=== PATIENT | female | born 1930 | race Caucasian/White ===

== ENCOUNTER 2016-10-12 02:22 | Inpatient (IN) | payer OTHER, MEDICARE ==
[2016-10-12] VITALS (12 sets, daily range): BP systolic 107–142; BP diastolic 64–77; PULSE 72–96; RESP 16–20; TEMP 96–97.7; O2SAT 82–98
[~2016-10-12] VITALS: Ht 165.1 cm; Wt 72.0 kg
[~2016-10-12 02:22] MED LIST: ASPI-110 PO; BENA25CA2 PO; CARV3.12 PO; CHOL1TAB29; FAMO20TA2 PO; IRON27TA PO; LEVO25TA4 PO; OMEP20TA PO; PRAM0.12 PO; PRED20 PO; SIMV40TA PO
[2016-10-12] MEDS: RESP: ALBUTEROL 2.5 MG/IPRATROPIUM 0.5 MG NEB (SCH) INH (02:39)
[2016-10-12] MEDS ORDERED: SODIUM CHLORIDE 0.9% FLUSH 10 ML FLUSH IVF PRN (02:45)
[2016-10-12 02:47] LABS: AUTOMATED NEUTROPHIL # 11.1 TH/MM3 (1.8-7.7); BASOPHIL # 0.1 TH/MM3 (0-0.2); BASOPHIL % 0.9 % (0.0-2.0); EOSINOPHIL # 0.2 TH/MM3 (0-0.4); EOSINOPHIL % 1.6 % (0.0-4.0); HEMATOCRIT 36.3 % (35.0-46.0); HEMO FLAGS DIFF FINAL; LYMPH % 13.2 % (9.0-44.0); LYMPHOCYTE # 1.9 TH/MM3 (1.0-4.8); MEAN CORPUSCULAR HGB CONC 32.2 % (32.0-36.0); MONO % 6.1 % (0.0-8.0); NEUT % 78.2 % (16.0-70.0); PLATELET COUNT 263 TH/MM3 (150-450); RED BLOOD COUNT 4.18 MIL/MM3 (4.00-5.30); RED CELL DISTRIBUTION WIDTH 16.8 % (11.6-17.2); WHITE BLOOD COUNT 14.2 TH/MM3 (4.0-11.0)
--- NOTE | 2016-10-12 02:52 | PD ---
HPI Chief Complaint: Respiratory Distress Time Seen by Provider: 02:34 Travel History International Travel<30 days: No Contact w/Intl Traveler<30days: No Traveled to known affect area: No History of Present Illness HPI And 86 year-old woman with a history of systolic CHF as well as COPD and chronic kidney disease who presents to the emergency department when her shortness of breath. She follows with Dr. Bautista, Dr. Guzmán. She states that she saw Dr. Bautista today and had been doing really well. About 11:00 she started getting abrupt worsening in her trouble breathing. She called EMS. On EMS arrival she was 82% on room air, the report that she was then A. fib RVR with a heart rate in the 130s, breathing about 30 times a minute, looks pale and diaphoretic. She was given breathing treatments, 125 is on Medrol, and 20 mg of diltiazem. She had some vomiting. She felt overall improved. Patient states she had been feeling generally well before the onset he symptoms. No history of A. fib in the past. History Past Medical History Narrative Medical Systolic CHF Chronic kidney disease stage IV COPD Arthritis Hyponatremia Hypertension History of right sided breast cancer, as well as cervical cancer Social History Alcohol Use: No Tobacco Use: No (QUIT 7 yrs ago) Allergies-Medications (Allergen,Severity, Reaction): Coded Allergies: Lasix (Verified Allergy, Severe, angioedema, 01/29/16) Morphine (Verified Adverse Reaction, Intermediate, Nausea/Vomiting, ) Reported Meds & Prescriptions Reported Meds & Active Scripts Active Prednisone 20 Mg Tab 20 Mg PO DAILY Famotidine 20 Mg Tab 10 Mg PO BID Reported Simvastatin 40 Mg Tab 40 Mg PO HS Levothyroxine (Levothyroxine Sodium) 25 Mcg Tab 25 Mcg PO DAILY Carvedilol 3.125 Mg Tab 3.125 Mg PO BID Omeprazole 20 Mg Tab 20 Mg PO DAILY Pramipexole (Pramipexole Dihydrochloride) 0.125 Mg Tab 0.125 Mg PO HS Aspirin 81 (Aspirin) 81 Mg Tabdr 81 Mg PO DAILY Iron (Ferrous Gluconate) 27 Mg Tab PO DAILY Review of Systems Except as stated in HPI: all other systems reviewed are Neg Physical Exam Narrative GENERAL: 86 year-old woman, still little bit labored speaking in short sentences , little bit pale. SKIN: Pale and clammy. HEAD: Atraumatic. Normocephalic. EYES: Pupils equal and round. No scleral icterus. No injection or drainage. ENT: No nasal bleeding or discharge. Mucous membranes pink and moist. NECK: Trachea midline. No JVD. CARDIOVASCULAR: Heart rate a little bit rapid, regular most the time but still with bouts of irregularity. RESPIRATORY: No accessory muscle use. Clear to auscultation. Breath sounds equal bilaterally. GASTROINTESTINAL: Abdomen soft, non-tender, nondistended. Hepatic and splenic margins not palpable. MUSCULOSKELETAL: No obvious deformities. No clubbing. No cyanosis. No edema. NEUROLOGICAL: Awake and alert. No obvious cranial nerve deficits. Motor grossly within normal limits. Normal speech. PSYCHIATRIC: Appropriate mood and affect; insight and judgment normal. Data Data Last Documented VS Vital Signs Date Time Temp Pulse Resp B/P Pulse Ox O2 Delivery O2 Flow Rate FiO2 10/12/16 02:33 97.7 72 18 142/68 91 Orders Complete Blood Count With Diff (10/12/16 02:34) Comprehensive Metabolic Panel (10/12/16 02:34) B-Type Natriuretic Peptide (10/12/16 02:34) Act Partial Throm Time (Ptt) (10/12/16 02:34) Prothrombin Time / Inr (Pt) (10/12/16 02:34) Magnesium (Mg) (10/12/16 02:34) Troponin I (10/12/16 02:34) Urinalysis - C+S If Indicated (10/12/16 02:34) Iv Access Insert/Monitor (10/12/16 02:34) Electrocardiogram (10/12/16 02:34) Ecg Monitoring (10/12/16 02:34) Oximetry (10/12/16 02:34) Oxygen Administration (10/12/16 02:34) Chest, Single Ap (10/12/16 02:34) Sodium Chloride 0.9% Flush (Ns Flush) (10/12/16 02:45) Albuterol-Ipratropium Neb (Duoneb Neb) (10/12/16 02:45) MDM Medical Decision Making Medical Screen Exam Complete: Yes Emergency Medical Condition: Yes Interpretation(s) My review of EKG: Normal sinus rhythm at a rate of 65, left bundle branch block , no definite ischemia. Compared to previous EKG from January 2016 is no significant change. Differential Diagnosis COPD exacerbation, CHF exacerbation, PE, pneumonia, ACS, other Narrative Course Medical decision making Is 86 year-old woman presents emergent from her shortness of breath. She had an episode of A. fib RVR. I reviewed these tracings. The only a 12-lead tracings the rhythm strip. There is some irregularity but it could be sinus rhythm with ectopy is difficult to tell. She was treated with diltiazem and then had some vomiting. She then apparently drop her blood pressure. She is in sinus rhythm now with still a fair amount of ectopy. She is a little bit improved but still fairly hypoxic. She has wheezing and coarse breath sounds at posterior lung dumont. She states she's not obligated diuretics because of her chronic kidney disease. We'll check labs, x-ray, consider PE although I think this is unlikely. Patient will likely need to be admitted to the hospital. Kumar Clarke MD Oct 12, 2016 02:52
[2016-10-12 03:06] LABS: APTT (PATIENT) 25.9 SEC (24.3-30.1)
[2016-10-12 03:17] LABS: ALT (GPT) 22 U/L (10-53); ANION GAP 12 MEQ/L (5-15); AST (GOT) 25 U/L (15-37); BICARBONATE 19.9 MEQ/L (21.0-32.0); BLOOD UREA NITROGEN 33 MG/DL (7-18); CHLORIDE 109 MEQ/L (98-107); GLOMERULAR FILTRATION RATE 25 ML/MIN (>89); MAGNESIUM 1.9 MG/DL (1.5-2.5); SODIUM (NA) 141 MEQ/L (136-145)
[2016-10-12 03:22] LABS: ALKALINE PHOSPHATASE 87 U/L (45-117); TOTAL BILIRUBIN ADULT 0.5 MG/DL (0.2-1.0)
[2016-10-12] MEDS ORDERED: NITROGLYCERIN 2% OINT 1 GM PACKET TOPICAL ONE (03:45)
[2016-10-12] MEDS ORDERED: BUMETANIDE INJ 1 MG/4 ML VIAL IV PUSH ONE (03:45)
--- NOTE | 2016-10-12 03:47 | RADRPT ---
EXAM DATE/TIME: 10/12/2016 02:44 [facility] COMPARISON: CHEST SINGLE AP, January 14, 2016, 5:01. INDICATIONS : Short of breath. MEDICAL HISTORY : Hypertension. Hypercholesterolemia. Congestive heart failure. COPD. Cervical cancer. Breast cance r. Renal disease. SURGICAL HISTORY : Right lumpectomy. ENCOUNTER: Initial ACUITY: 1 day PAIN SCORE: 0/10 LOCATION: Bilateral chest FINDINGS: There are patchy parenchymal infiltrates in both lung bases. The heart size is enlarged. No definite pleural effusions. The upper lung dumont are grossly clear. The bony structures are grossly intact. CONCLUSION: 1. Patchy bibasilar parenchymal infiltrates suggestive of pneumonia. 2. Cardiomegaly. Clifford Allison MD on October 12, 2016 at 3:45 Board Certified Radiologist. This report was verified electronically.
[2016-10-12] MEDS ORDERED: RESP: IPRATROPIUM 0.5 MG/2.5 ML NEB NEB PRN (04:30)
[2016-10-12] MEDS ORDERED: NALOXONE HCL 0.4 MG/ML AMP IV PRN (04:30)
[2016-10-12] MEDS ORDERED: SODIUM CHLORIDE 0.9% FLUSH 10 ML FLUSH IV FLUSH PRN (04:30)
--- NOTE | 2016-10-12 04:54 | HHI.HP ---
HPI Service [facility] Primary Care Physician Serena Johnson MD Admission Diagnosis CHF exacerbation, shortness of breath, possible A. fib Diagnoses: Travel History International Travel<30 Days: No Contact w/Intl Traveler <30 Da: No Traveled to Known Affected Are: No History of Present Illness History from patient, ER physician communication, and review of medical records. Patient reported that she was at her normal self and even had an appointment with her powertrain control systems engineer at Dr. Bautista yesterday afternoon. She stated she was fine and was not short of breath at that time. Reports her lung exam at that time was normal. However by 11 PM last night, she stated she was starting to get short of breath. She stated she tried to take breathing exercises, and that her breathing was not improving. By around 1 AM, she stated it was so severe that she had to call 911. Per ER report, patient's O2 sat was in the 80s on room air upon EMS arrival. Patient was given nebulizer treatments, and was placed on oxygen. She was also found to be in A. fib with RVR per EMS judgment and therefore was given 20 mg of diltiazem. She was also given steroids. In the emergency room, patient was saturating in the low 90s on 6 L nasal cannular. Patient denies being on oxygen at home. She does report her shortness of breath which started all of a sudden yesterday. But denies any progressive shortness of breath over the past few days. Denies pillow orthopnea. However stated she sleeps on a chair which is almost like a recliner. Patient denies any peripheral edema. She reports that she does have a machine to check her pulse ox at home and it is usually 95% on room air. Patient denies cough/sputum production/fever/night sweats at home. She denies any chest pain although she states she has heaviness in her chest whenever she takes a deep breath. She denies any prolonged recent travels. She is not on blood thinners at home. She states that she is quite ambulatory, still goes to grocery shopping by herself, and is still driving. Patient does report of history of CHF. However she states that she has been in hospital only 4 times and 2 of the times were possibly for CHF exacerbation. She stated she was on diuretics while at hospital but never was discharged on diuretics at home. She has never been on it. She is quite reluctant to use diuretics because she does have stage IV chronic kidney disease and she was told by her taper operator to be careful of them. Review of Systems Except as stated in HPI: all other systems reviewed are Neg Past Family Social History Past Medical History htn copd ckd iv chf hypothryoidism at age 43yo- cervical cancer - stage iii- s/p hysterectomy, left one ovary 2001- breast cancer, right, lumpectomy, s/p radiation Past Surgical History hysterectomy lumpectomy on right Allergies: Coded Allergies: Lasix (Verified Allergy, Severe, angioedema, 01/29/16) Morphine (Verified Adverse Reaction, Intermediate, Nausea/Vomiting, ) Family History mother- at 80yo from ID one brother- in war at 18yo another brother 72yo- lung cancer sister- one from another sister- at 69yo, limb ischemia Social History used to smoke about 1 pack a day, started 29yo - quit 80yo no drinking, no drugs lives with daughter, still drives Physical Exam Vital Signs Vital Signs Date Time Temp Pulse Resp B/P Pulse Ox O2 Delivery O2 Flow Rate FiO2 10/12/16 04:23 93 Venturi Mask 50 10/12/16 04:15 88 Nasal Cannula 5.00 10/12/16 02:38 20 82 Room Air 10/12/16 02:37 91 Nasal Cannula 6 10/12/16 02:33 97.7 72 18 142/68 91 Physical Exam GENERAL: This is a well-nourished, well-developed patient, in no apparent distress. SKIN: No rashes, ecchymoses or lesions. Cool and dry. HEAD: Atraumatic. Normocephalic. No temporal or scalp tenderness. EYES: No scleral icterus. No injection or drainage. ENT: Nose without bleeding, purulent drainage or septal hematoma. Airway patent. NECK: Trachea midline. No JVD CARDIOVASCULAR: Regular rate and rhythm without murmurs, gallops, or rubs. RESPIRATORY: Bilateral basilar crepitations. GASTROINTESTINAL: Abdomen soft, non-tender, nondistended.. No guarding. MUSCULOSKELETAL: Extremities without clubbing, cyanosis, or edema. No calf tenderness. Neurology: Awake, alert, oriented. No focal deficits. Laboratory Laboratory Tests Test 10/12/16 02:35 White Blood Count 14.2 Red Blood Count 4.18 Hemoglobin 11.7 Hematocrit 36.3 Mean Corpuscular Volume 87.0 Mean Corpuscular Hemoglobin 28.0 Mean Corpuscular Hemoglobin 32.2 Concent Red Cell Distribution Width 16.8 Platelet Count 263 Mean Platelet Volume 8.6 Neutrophils (%) (Auto) 78.2 Lymphocytes (%) (Auto) 13.2 Monocytes (%) (Auto) 6.1 Eosinophils (%) (Auto) 1.6 Basophils (%) (Auto) 0.9 Neutrophils # (Auto) 11.1 Lymphocytes # (Auto) 1.9 Monocytes # (Auto) 0.9 Eosinophils # (Auto) 0.2 Basophils # (Auto) 0.1 CBC Comment DIFF FINAL Differential Comment Prothrombin Time 11.0 Prothromb Time International 1.0 Ratio Activated Partial 25.9 Thromboplast Time D-Dimer Quantitative (PE/DVT) 0.49 Sodium Level 141 Potassium Level 4.0 Chloride Level 109 Carbon Dioxide Level 19.9 Anion Gap 12 Blood Urea Nitrogen 33 Creatinine 1.87 Estimat Glomerular Filtration 25 Rate Random Glucose 209 Calcium Level 8.5 Magnesium Level 1.9 Total Bilirubin 0.5 Aspartate Amino Transf 25 (AST/SGOT) Alanine Aminotransferase 22 (ALT/SGPT) Alkaline Phosphatase 87 Troponin I 0.05 B-Type Natriuretic Peptide 850 Total Protein 6.6 Albumin 3.4 Result Diagram: 10/12/1623410/12/16234 Imaging Last 48 hours Impressions Chest X-Ray 10/12/16233 Signed Impressions: Service Date/Time: Wednesday, October 12, 2016 02:44 - CONCLUSION: 1. Patchy bibasilar parenchymal infiltrates suggestive of pneumonia. 2. Cardiomegaly. Clifford Allison MD Assessment and Plan Assessment and Plan Impression: Acute hypoxemic respiratory failurerequiring high flow oxygen. D-dimer is negative. Pneumonia versus pulmonary edema Possible A. fibper EMS report. However on review of telemetry strips from EMS , I was able to appreciate P waves. Patient does have LBBB which is old. htn copd ckd iv chf hypothryoidism at age 43yo- cervical cancer - stage iii- s/p hysterectomy, left one ovary 2001- breast cancer, right, lumpectomy, s/p radiation Plan: Atrovent nebulizers scheduled and when necessary. Patient was given Bumex 1 mg IV in ER. At present, patient is still requiring about 5-6 L of oxygen by Ventimask. She is however setting better and he were between 90-93%. We'll continue oxygen supplementation. Again, patient is not on diuretics at home. Not on home oxygen at home. Not even taking nebulizers at home. There for this is somewhat unusual as she is quite hypoxic and presentation is quite certain. D-dimer is negative which thus is unlikely to be PE given that she also does have abnormal chest x-ray. We'll therefore obtain CT of the chest without IV contrast to better differentiate between pneumonia versus pulmonary edema. This distinction may help patient in convincing her that she might need diuretics. Would also consult patient's taper operator to weigh in on use of diuretics. Consults patient's powertrain control systems engineer at Dr. Bautista for likely CHF exacerbation. At present, I would hold off on antibiotics since my clinical impression is that this is more of CHF exacerbation. Patient currently is not septic. DVT prophylaxiswith heparin. GI prophylaxis on pantoprazole. Discussed Condition With Patient, ER physician, nursing staff Physician Certification 2 Midnight Certification Type: Admission for Inpatient Services Order for Inpatient Services The services are ordered in accordance with Medicare regulations or non- Medicare payer requirements, as applicable. In the case of services not specified as inpatient-only, they are appropriately provided as inpatient services in accordance with the 2-midnight benchmark. Estimated LOS (days): 2 days is the estimated time the patient will need to remain in the hospital, assuming treatment plan goals are met and no additional complications. Post-Hospital Plan: Home Sixto Byrd MD Oct 12, 2016 04:54
--- NOTE | 2016-10-12 07:01 | RADRPT ---
EXAM DATE/TIME: 10/12/2016 06:47 [facility] COMPARISON: CHEST SINGLE AP, October 12, 2016, 2:44. INDICATIONS : Shortness of breath. Pneumonia vs. pulmonary edema. RADIATION DOSE: 3.66 CTDIvol (mGy) MEDICAL HISTORY : Cardiovascular disease. Congestive heart failure. Chronic obstructive pulmonary disease. Diverticulit is. Right breast cancer. Cervical cancer. SURGICAL HISTORY : Mastectomy, right. Hysterectomy. ENCOUNTER: Initial ACUITY: 1 day PAIN SCALE: 0/10 LOCATION: chest TECHNIQUE: Volumetric scanning of the chest was performed. Using automated exposure control and adjustment of t he mA and/or kV according to patient size, radiation dose was kept as low as reasonably achievable to obtain optimal diagnostic quality images. DICOM format image data is available electronically for r eview and comparison. Follow-up recommendations for incidentally detected pulmonary nodules are based at a minimum on nodul e size and patient risk factors according to Fleischner Society Guidelines. FINDINGS: LUNGS: There is central lobar emphysema bilaterally. There is increased interstitial markings bilaterally. T here is infiltrates in both lung bases suggestive of atelectasis with small effusions. Findings sugge st most likely pulmonary edema with bibasilar infiltrates. PLEURAE: Small bilateral pleural effusions. MEDIASTINUM: The heart and great vessels demonstrate no acute abnormality. There is no mediastinal or hilar lymph adenopathy. A few nonspecific lymph nodes are seen. There are coronary calcifications. There is ather osclerotic changes of the aorta. There is diffuse cardiomegaly. AXILLAE: Within normal limits. No lymphadenopathy. Surgical clips in the right axillary area. MUSCULOSKELETAL: Within normal limits for patient age. Degenerative changes. MISCELLANEOUS: The visualized upper abdominal organs demonstrate no acute abnormality. CONCLUSION: 1. Central lobar emphysema 2. Increased interstitial markings bilaterally suggestive of pulmonary edema with bibasilar infiltrat es and small effusions. Clifford Allison MD on October 12, 2016 at 6:56 Board Certified Radiologist. This report was verified electronically.
--- NOTE | 2016-10-12 09:05 | MB ---
cc: BROWN BAUTISTA MD DATE OF CONSULTATION 10/12/2016 REASON FOR CONSULTATION CHF HISTORY OF PRESENT ILLNESS Ms. Treviño is a pleasant 86-year-old patient of mine. She does have a history of an ischemic cardiomyopathy with a known EF of 30-35%, moderate aortic regurgitation, Stage IV kidney disease and left bundle branch block. The patient reports that she had a rather sudden onset of shortness of breath with associated chills. She has not had any fever nor coughing anything up. She reports that the progressive shortness of breath was rather abrupt and precipitated her emergency room visit. She denies any recent weight gain and is emphatic that she weighs herself every day. She as well has not had any edema. PAST MEDICAL HISTORY Significant for - 1. Ischemic cardiomyopathy with an EF of 30-35%. 2. She has had a non-ST elevation MT that was medically managed. 3. Moderate aortic regurgitation. 4. Moderate carotid artery stenosis. 5. Chronic kidney disease. 6. COPD. 7. Pneumonia. 8. CHF. 9. Hypertension. 10. Hyperlipidemia. 11. Hypothyroidism. 12. Left bundle branch block. 13. Pericardial effusion. SOCIAL HISTORY The patient is a former smoker. ALLERGIES MORPHINE LASIX which causes angioedema. FAMILY HISTORY Noncontributory. REVIEW OF SYSTEMS Except as mentioned in the HPI, all 12 systems are negative. OUTPATIENT MEDICATIONS 1. Aspirin. 2. Omeprazole. 3. Carvedilol. 4. Levothyroxine. 5. Simvastatin. PHYSICAL EXAMINATION VITAL SIGNS: On physical examination vital signs are 96.0, 77, 18, 120/74. IN GENERAL: She is a well-appearing female who is in no apparent distress. NECK: Free from JVD. LUNGS: Clear to auscultation. CARDIOVASCULAR EXAMINATION: She has a normal S1 and S2. She has 2/6 systolic and diastolic murmurs. No rubs or gallops are appreciated. ABDOMEN: Soft. EXTREMITIES: Free from edema. LABORATORY FINDINGS White count of 14.2, creatinine is 1.87 with a troponin of 0.05. The BNP is 850. CHEST X-RAY Shows patchy right basilar infiltrate suggestive of pneumonia. IMPRESSION 1. Shortness of breath - The patient has had a rather abrupt onset of shortness of breath with oxygen saturations in the 80s. Her white count is elevated and chest x-ray is most consistent with pneumonia. The patient's CT has been done and is currently pending. This would be an unusual presentation for heart failure as she has not had any weight gain nor edema and has been quite elevated white count and significant hypoxia. This presentation is very similar to her last presentation for pneumonia. 2. CHF - The patient certainly does have a history of an ischemic cardiomyopathy with an EF of 30-35%. Low-dose Bumex is certainly reasonable given her history. I do not feel, however, that this was the precipitant of her hypoxia. HUGO inhibitors are felt relatively contraindicated with the creatinine of 1.9. I would continue her carvedilol. 3. CKD - The patient does have moderate renal insufficiency which does appear to be at baseline at this point. Sincerely, Brown Bautista M.D. DORITA/ENRIQUE /7:39 AM /8:55 AM
[2016-10-12] MEDS: CARVEDILOL 3.125 MG TAB PO SCH ×2 (09:39→21:04)
[2016-10-12] MEDS: BUMETANIDE 1 MG TAB PO SCH (09:40)
[2016-10-12] MEDS: SODIUM CHLORIDE 0.9% FLUSH 10 ML FLUSH IV FLUSH SCH ×2 (09:41→21:05)
[2016-10-12] MEDS: DOXYCYCLINE INJ 100 MG in SODIUM CHLORIDE 0.9% INJ 100 ML IV SCH ×2 (09:41→21:07)
--- NOTE | 2016-10-12 13:23 | ECHRPT ---
Indication: heart failure CONCLUSIONS Normal left ventricular size. The left ventricular systolic function is [id number] reduced with an estimated ejection fra ction in the range of 30-35%. The left atrial size is upper limits of normal. Mild mitral valve regurgitation. Mild aortic valve regurgitation. There is mild tricuspid valve regurgitation. There is estimated mild pulmonary hypertension present (range 40-50 mmHg). The pulmonary valve is not well visualized. BP: 120 / 74 HR: 77 Rhythm: MEASUREMENTS (Male / Female) Normal Values Technical Quality:Good 2D ECHO LV Diastolic Diameter PLAX 4.0 cm 4.2 - 5.9 / 3.9 - 5.3 cm LV Systolic Diameter PLAX 3.4 cm IVS Diastolic Thickness 2.4 cm 0.6 - 1.0 / 0.6 - 0.9 cm LVPW Diastolic Thickness 1.3 cm 0.6 - 1.0 / 0.6 - 0.9 cm LV Relative Wall Thickness 0.9 RV Internal Dim ED PLAX 2.3 cm M-MODE Aortic Root Diameter MM 3.3 cm LA Systolic Diameter MM 3.7 cm LA Ao Ratio MM 1.1 AV Cusp Separation MM 1.7 cm DOPPLER AI Peak Velocity 394.0 cm/s AI Peak Gradient 62.1 mmHg AI Pressure Half Time 529.0 ms MV Area PHT 2.1 cm Mitral E Point Velocity 142.0 cm/s Mitral A Point Velocity 159.0 cm/s Mitral E to A Ratio 0.9 LV E' Lateral Velocity 5.7 cm/s Mitral E to LV E' Lateral Ratio 25.1 LV E' Septal Velocity 5.9 cm/s Mitral E to LV E' Septal Ratio 24.3 TR Peak Velocity 312.0 cm/s TR Peak Gradient 38.9 mmHg FINDINGS LEFT VENTRICLE Normal left ventricular size. The left ventricular systolic function is [id number] reduced with an estimated ejection fra ction in the range of 30-35%. RIGHT VENTRICLE Normal right ventricular size and systolic function. LEFT ATRIUM The left atrial size is upper limits of normal. RIGHT ATRIUM The right atrial size is normal. ATRIAL SEPTUM Normal atrial septal thickness without atrial level shunting by limited color doppler interrogation. AORTA The aortic root and proximal ascending aorta are normal in size on limited imaging. MITRAL VALVE Mild mitral valve regurgitation. + MAC AORTIC VALVE Trileaflet aortic valve. Mild aortic valve regurgitation. TRICUSPID VALVE Structurally normal tricuspid valve. There is mild tricuspid valve regurgitation. There is estimated mild pulmonary hypertension present (range 40-50 mmHg). PULMONARY VALVE The pulmonary valve is not well visualized. VESSELS The inferior vena cava is normal in size. PERICARDIUM No pericardial effusion. Cecelia Bautista MD, FACC (Electronically Signed) Final Date:12 October 2016 13:22
--- NOTE | 2016-10-12 13:53 | EKG ---
Date Performed: 10/12/2016 Time Performed: 10:18:31 PTAGE: 86 years EKG: ATRIAL FIBRILLATION MARKED LEFT AXIS DEVIATION LEFT BUNDLE BRANCH BLOCK ABNORMAL ECG PREVIOUS TRACING : 10/12/2016 02.28 Compared to the previous tracing, atrial fibrillation has r eplaced Sinus rhythm DOCTOR: Brodie Gomez Interpretating Date/Time 10/12/2016 13:52:14
[2016-10-12] MEDS: RESP: IPRATROPIUM 0.5 MG/2.5 ML NEB NEB SCH ×2 (15:51→21:51)
--- NOTE | 2016-10-12 16:45 | MB ---
cc: ROSALIA KRISHNAMURTHY MD DATE OF CONSULTATION 10/12/16 REASON FOR CONSULTATION Chronic kidney disease with fluid overload status. HISTORY OF PRESENT ILLNESS This is an 86-year-old female known to me from before with past medical history of ischemic heart disease, congestive heart failure, hypertension, chronic obstructive pulmonary disease, chronic kidney disease, hypothyroidism, history of cervical cancer who came to the emergency department because of sudden onset of shortness of breath and pressure at the chest. I was called to see the patient for management of her chronic kidney disease and fluid overload status. The patient was not taking any diuretics at home. According to the patient, she went to see her threshing department supervisor yesterday and she was doing good at home. Suddenly, when she went to bed to sleep she started feeling shortness of breath and some chest tightness and heaviness which was mainly retrosternal and it was getting worse. She eventually came to the hospital. She did not have any cough. There is no history of fever and no sputum. No nausea or vomiting. She has been following with me in the office. In the past, she had a problem diuretics causing worsening renal failure so she has been very careful with that. Her creatinine baseline is close to what she came in, 1.80-2.0. The patient was seen by the threshing department supervisor. Currently, she is not on any diuretics as she is feeling much better now. She just started on Bumex [address] Bautista. PAST MEDICAL HISTORY 1. Hypertension, 2. Ischemic heart disease, 3. Congestive heart failure, 4. Chronic obstructive pulmonary disease 5. Hypothyroidism, 6. Chronic kidney disease, 7. History of breast cancer 8. History of cervical cancer. PAST SURGICAL HISTORY 1. Hysterectomy 2. Lumpectomy. REVIEW OF SYSTEMS The patient denies any history of fever. No sore throat. She had this sudden onset of retrosternal tightness and shortness of breath. She has no cough. No sputum. No nausea or vomiting. No abdominal pain. No history of diarrhea. No dysuria, hematuria. SOCIAL HISTORY The patient has past history of smoking. Stopped a long time ago. There is no history of heavy smoking. She lives with her daughter. FAMILY HISTORY Noncontributory. ALLERGIES LASIX MORPHINE MEDICATIONS Currently 1. Bumex 1 mg once a day, 2. Atrovent 0.5 mg nebulizer. 3. Doxycycline 100 mg q. 12-hour. 4. Carvedilol 3.___ mg q. 12-hour 5. Narcan 0.4 mg p.r.n., 6. Atrovent as needed PHYSICAL EXAMINATION GENERAL: The patient is awake, alert. She is not in acute distress. VITAL SIGNS: Blood pressure is 116/66, temperature 96.1, oxygen saturation 94% on 2 liters nasal cannula. HEENT: Pupils equally reacting to light. Nonicteric sclerae, conjunctivae normal. NECK: Supple. JVD is not elevated. LUNGS: The patient has bilateral decreased air entry with few basilar rales and scattered wheezing. HEART: S1, S2 regular rhythm. ABDOMEN: Distended, soft, lax. There is no tenderness. Bowel sounds positive. EXTREMITIES: There is no pedal edema. LABORATORY DATA WBC count of 14.3, hemoglobin 11.7, platelet count 263 Sodium is 141. Potassium 4.0, chloride 109, bicarb 19.9, BUN 33, creatinine 1.87, glucose 209, AST, ALT normal. Troponin I 0.18, BNP is 850, INR is 1.0. IMAGING STUDIES The patient had chest x-ray done which shows that she has patchy bibasilar parenchymal infiltrate with cardiomegaly. CT scan of the chest was done which shows small bilateral pleural effusion. Central lobe were increased interstitial marking. ASSESSMENT/PLAN 1. Pneumonia. 2. COPD with exacerbation 3. Mild pulmonary edema with history of congestive heart failure. 4. Chronic kidney disease. 5. Hypothyroidism. The patient started on Bumex and also she is getting doxycycline. Seen by the threshing department supervisor. Her ejection fraction has been 30-35%. I agree with continuing the Bumex at present and try to diurese her gently and watch the renal function closely. I reassured the patient about watching the renal function and she agreed to continue the diuretics. Thank you for the consultation. I will follow the patient while she is in the hospital. MD NIA Carbajal/ /3:56 PM /4:35 PM
--- NOTE | 2016-10-12 18:35 | EKG ---
Date Performed: 10/12/2016 Time Performed: 02:28:41 PTAGE: 86 years EKG: Sinus rhythm WITH SHORT RI INTERVAL MARKED LEFT AXIS DEVIATION LEFT BUNDLE BRANCH BLOCK ABNORMAL ECG PREVIOUS TRACING : 01/29/2016 04.46 Compared to prior tracing no significant change DOCTOR: Brodie Gomez Interpretating Date/Time 10/12/2016 18:34:55
[2016-10-13] VITALS (9 sets, daily range): BP systolic 98–142; BP diastolic 57–128; PULSE 77–86; RESP 16–20; TEMP 96.4–98.4; O2SAT 92–98
[2016-10-13] MEDS: RESP: IPRATROPIUM 0.5 MG/2.5 ML NEB NEB SCH ×6 (00:28→19:59)
[2016-10-13 07:22] LABS: AUTOMATED NEUTROPHIL # 12.5 TH/MM3 (1.8-7.7); HEMO FLAGS DIFF FINAL; LYMPH % 5.5 % (9.0-44.0); LYMPHOCYTE # 0.8 TH/MM3 (1.0-4.8); MEAN CELL VOLUME 85.7 FL (80.0-100.0); MEAN CORPUSCULAR HEMOGLOBIN 27.8 PG (27.0-34.0); MEAN CORPUSCULAR HGB CONC 32.4 % (32.0-36.0); MONO % 5.9 % (0.0-8.0); NEUT % 88.6 % (16.0-70.0); PLATELET COUNT 204 TH/MM3 (150-450); RED BLOOD COUNT 3.85 MIL/MM3 (4.00-5.30); RED CELL DISTRIBUTION WIDTH 16.4 % (11.6-17.2); WHITE BLOOD COUNT 14.1 TH/MM3 (4.0-11.0)
[2016-10-13 07:39] LABS: POTASSIUM 4.7 MEQ/L (3.5-5.1)
[2016-10-13] MEDS: CARVEDILOL 3.125 MG TAB PO SCH ×2 (08:54→20:31)
[2016-10-13] MEDS: BUMETANIDE 1 MG TAB PO SCH (08:54)
[2016-10-13] MEDS: SODIUM CHLORIDE 0.9% FLUSH 10 ML FLUSH IV FLUSH SCH ×2 (08:54→20:38)
--- NOTE | 2016-10-13 10:05 | EKG ---
Date Performed: 10/12/2016 Time Performed: 13:34:34 PTAGE: 86 years EKG: Sinus rhythm WITH FREQUENT SUPRAVENTRICULAR PREMATURE COMPLEXES MARKED LEFT AXIS DEVIATION LEFT BUNDLE BRANCH BLO CK ABNORMAL ECG PREVIOUS TRACING : 10/12/2016 10.18 DOCTOR: Kumar Butt Interpretating Date/Time 10/13/2016 10:03:56
[2016-10-13] MEDS: DOXYCYCLINE INJ 100 MG in SODIUM CHLORIDE 0.9% INJ 100 ML IV SCH ×2 (10:21→20:33)
--- NOTE | 2016-10-13 10:50 | HHI.PR ---
Subjective Remarks This is a pleasant 86 y/o Female who came to ER with SOB, she has CHF, followed outpatient by outside event sales specialist, refused Diuretics as recommended by her Primary Nephrology specialist Doctor Ramirez. seen in her bedroom and discussed with nurse Miss Stephenson. Objective Vital Signs Date Time Temp Pulse Resp B/P Pulse Ox O2 Delivery O2 Flow Rate FiO2 10/13/16 08:00 96.4 86 18 142/73 93 10/13/16 00:30 92 Nasal Cannula 2.00 10/13/16 00:00 98.4 83 20 98/57 92 10/12/16 21:53 96 Nasal Cannula 2.00 10/12/16 20:58 96 10/12/16 20:00 97.0 92 16 137/68 93 10/12/16 16:00 96.6 91 17 107/64 94 10/12/16 12:10 94 Nasal Cannula 2.00 10/12/16 12:00 96.1 84 18 116/66 98 I/O 10/12/16 10/12/16 10/12/16 10/13/16 10/13/16 10/13/16 07:00 15:00 23:00 07:00 15:00 23:00 Intake Total 0 ml 940 ml 340 ml 120 ml Output Total 450 ml 100 ml 200 ml Balance 0 ml 490 ml 240 ml -80 ml Intake Oral 0 ml 840 ml 240 ml 120 ml IV Total 100 ml 100 ml Output Urine Total 450 ml 100 ml 200 ml # Voids 0 # Bowel Movements 0 0 0 0 Result Diagram: 10/13/16 0636 10/13/16 0636 Imaging Last Impressions Chest X-Ray 10/12/16 0234 Signed Impressions: Service Date/Time: Wednesday, October 12, 2016 02:44 - CONCLUSION: 1. Patchy bibasilar parenchymal infiltrates suggestive of pneumonia. 2. Cardiomegaly. Clifford Allison MD Chest CT 10/12/16 0000 Signed Impressions: Service Date/Time: Wednesday, October 12, 2016 06:47 - CONCLUSION: 1. Central lobar emphysema 2. Increased interstitial markings bilaterally suggestive of pulmonary edema with bibasilar infiltrates and small effusions. Clifford Allison MD Procedures None Other Results Laboratory Tests Test 10/12/16 10/12/16 10/13/16 02:35 16:17 06:36 Prothrombin Time 11.0 SEC Prothromb Time International 1.0 RATIO Ratio Activated Partial 25.9 SEC Thromboplast Time D-Dimer Quantitative (PE/DVT) 0.49 MG/L FEU Magnesium Level 1.9 MG/DL Total Bilirubin 0.5 MG/DL Aspartate Amino Transf 25 U/L (AST/SGOT) Alanine Aminotransferase 22 U/L (ALT/SGPT) Alkaline Phosphatase 87 U/L B-Type Natriuretic Peptide 850 PG/ML Total Protein 6.6 GM/DL Albumin 3.4 GM/DL Total Creatine Kinase 147 U/L Troponin I 0.19 NG/ML White Blood Count 14.1 TH/MM3 Red Blood Count 3.85 MIL/MM3 Hemoglobin 10.7 GM/DL Hematocrit 33.0 % Mean Corpuscular Volume 85.7 FL Mean Corpuscular Hemoglobin 27.8 PG Mean Corpuscular Hemoglobin 32.4 % Concent Red Cell Distribution Width 16.4 % Platelet Count 204 TH/MM3 Mean Platelet Volume 9.0 FL Neutrophils (%) (Auto) 88.6 % Lymphocytes (%) (Auto) 5.5 % Monocytes (%) (Auto) 5.9 % Eosinophils (%) (Auto) 0.0 % Basophils (%) (Auto) 0.0 % Neutrophils # (Auto) 12.5 TH/MM3 Lymphocytes # (Auto) 0.8 TH/MM3 Monocytes # (Auto) 0.8 TH/MM3 Eosinophils # (Auto) 0.0 TH/MM3 Basophils # (Auto) 0.0 TH/MM3 CBC Comment DIFF FINAL Differential Comment Sodium Level 140 MEQ/L Potassium Level 4.7 MEQ/L Chloride Level 107 MEQ/L Carbon Dioxide Level 25.0 MEQ/L Anion Gap 8 MEQ/L Blood Urea Nitrogen 43 MG/DL Creatinine 2.05 MG/DL Estimat Glomerular Filtration 23 ML/MIN Rate Random Glucose 132 MG/DL Calcium Level 9.1 MG/DL Objective Remarks GENERAL: This is a well-nourished, well-developed patient, in no apparent distress. SKIN: No rashes, ecchymoses or lesions. Cool and dry. HEAD: Atraumatic. Normocephalic. No temporal or scalp tenderness. EYES: No scleral icterus. No injection or drainage. ENT: Nose without bleeding, purulent drainage or septal hematoma. Airway patent. NECK: Trachea midline. No JVD CARDIOVASCULAR: Regular rate and rhythm without murmurs, gallops, or rubs. RESPIRATORY: Bilateral basilar crepitations. GASTROINTESTINAL: Abdomen soft, non-tender, nondistended.. No guarding. MUSCULOSKELETAL: Extremities without clubbing, cyanosis, or edema. No calf tenderness. Neurology: Awake, alert, oriented. No focal deficits. Medications and IVs Current Medications Medications (Trade) Dose Ordered Sig/Philomena Route Start Time Stop Time Status Last Admin (NS Flush) 2 ml UNSCH PRN IV FLUSH 10/12/16 04:30 (NS Flush) 2 ml BID IV FLUSH 10/12/16 09:00 10/13/16 08:54 (Narcan Inj) 0.4 mg UNSCH PRN IV 10/12/16 04:30 (Bumetanide) 1 mg DAILY PO 10/12/16 09:00 10/13/16 08:54 Carvedilol 3.125 mg 3.125 mg Q12HR PO 10/12/16 09:00 10/13/16 08:54 (Vibramycin Inj/ NS Inj) 100 ml @ 100 mls/hr Q12H IV 10/12/16 10:00 10/13/16 10:21 A/P Assessment and Plan 1. Acute hypoxemic respiratory failure, followed by outside event sales specialist Doctor Michele unusual presentation for CHF exacerbation, no weight gain, nor edema, EF 30 to 35%, followed by Nephrology specialist Doctor Ramirez thinks more the case is related to Pneumonia and COPD exacerbation, Mild Pulmonary edema, agree with Bumex as recommended by outside event sales specialist. 2. Pneumonia her Leukocytosis has increased along with her Neutrophil count will add Cefepime renally adjusted. 3. Hypertension controlled has Beta blockers and diuretics 4. COPD to continue Bronchodilator, Mucolytic and incentive spirometry. 5. Hypothyroidism to continue Home medicines DVT prophylaxiswith heparin. GI prophylaxis on pantoprazole. Discussed Condition With Patient and Nurse Miss Stephenson Discharge Planning Expected by tomorrow if okay with Specialists. Jeferson Hagan MD Oct 13, 2016 10:50 Plan: Atrovent nebulizers scheduled and when necessary. Patient was given Bumex 1 mg IV in ER. At present, patient is still requiring about 5-6 L of oxygen by Ventimask. She is however setting better and he were between 90-93%. We'll continue oxygen supplementation. Again, patient is not on diuretics at home. Not on home oxygen at home. Not even taking nebulizers at home. There for this is somewhat unusual as she is quite hypoxic and presentation is quite certain. D-dimer is negative which thus is unlikely to be PE given that she also does have abnormal chest x-ray. We'll therefore obtain CT of the chest without IV contrast to better differentiate between pneumonia versus pulmonary edema. This distinction may help patient in convincing her that she might need diuretics. Would also consult patient's cullet crusher and washer to weigh in on use of diuretics. Consults patient's cash checker at Dr. Bautista for likely CHF exacerbation. At present, I would hold off on antibiotics since my clinical impression is that this is more of CHF exacerbation. Patient currently is not septic. DVT prophylaxiswith heparin. GI prophylaxis on pantoprazole. Discussed Condition With Jeferson Hagan MD Oct 13, 2016 10:50
[2016-10-13] MEDS: guaiFENesin E.R. 600 MG TAB PO SCH ×2 (12:07→20:31)
[2016-10-13] MEDS: CEFEPIME INJ 1,000 MG in SODIUM CHLORIDE 0.9% INJ 100 ML IV SCH (12:08)
--- NOTE | 2016-10-13 16:51 | HHI.NPPN ---
Subjective History of Present Illness 86-year-old female known to me from before with past medical history of ischemic heart disease, congestive heart failure, hypertension, chronic obstructive pulmonary disease, chronic kidney disease, hypothyroidism, history of cervical cancer who came to the emergency department because of sudden onset of shortness of breath and pressure at the chest. I was called to see the patient for management of her chronic kidney disease and fluid overload status. Additional Remarks Patient is alert, breathing is better, now getting nebulizer treatment. Review of Systems General Constitutional: Fatigue Respiratory Lungs: SOB, Wheeze Cardiovascular Cardiac: PICKETT Objective Data Data 10/12/16 10/13/16 19:00 07:00 Intake Total 940 ml 460 ml Output Total 450 ml 300 ml Balance 490 ml 160 ml Intake Oral 840 ml 360 ml IV Total 100 ml 100 ml Output Urine Total 450 ml 300 ml # Bowel Movements 0 0 Vital Signs Date Time Temp Pulse Resp B/P Pulse Ox O2 Delivery O2 Flow Rate FiO2 10/13/16 16:24 96 Nasal Cannula 2.00 10/13/16 16:00 96.7 84 16 114/67 92 10/13/16 12:53 98 Nasal Cannula 2.00 10/13/16 12:00 97.3 84 17 125/64 95 10/13/16 08:00 96.4 86 18 142/73 93 10/13/16 00:30 92 Nasal Cannula 2.00 10/13/16 00:00 98.4 83 20 98/57 92 10/12/16 21:53 96 Nasal Cannula 2.00 10/12/16 20:58 96 10/12/16 20:00 97.0 92 16 137/68 93 -: 10/13/16 0636 10/13/16 0636 Physical Exam General Appearance: No Acute Distress, Comfortable Eyes Eye Exam: Pupils Equal Throat Throat Exam: Oral Mucosa [place] & Moist Neck Neck Exam: Neck Supple Pulmonary Resp Exam: No Distress, Crackles, Rhonchi, Decreased Bases, Diminished Breath Sounds Cardiology CV Exam: Regular, Normal Sinus Rhythm Gastrointestinal/Abdomen GI Exam: Soft, Non-Tender, Bowel Sounds Present Extremeties Extremities Exam: No Edema Neurologic Neuro Exam: Alert, Awake, Oriented Psychiatric Psych Exam: Appropriate Responses Assessment/Plan Assessment Summary: ABDULLAHI/Acute Renal Failure, Fluid/Volume Overload, CHF, CKD Stage IV Problem List: (1) Pneumonia (2) Acute exacerbation of CHF (congestive heart failure) (3) Hyperkalemia (4) Shortness of breath (5) Hypertension (6) Chronic kidney disease, stage 4 (severe) Plan Patient has slight increase in the Creatinine and now it is 2.0. Urine out put is better. Continue antibiotics. On low dose Bumex, 1 mg daily. Continue same Bumex, follow BMP in AM. If Creatinine continue to increase, will consider stopping Bumex. Problem Qualifiers (1) Hypertension: Qualified Code: I10 - Essential hypertension Stefan Guzmán MD Oct 13, 2016 16:51
--- NOTE | 2016-10-13 16:52 | PD.CARD.PN ---
Subjective Subjective Remarks Pt without complaints on NC Objective Medications Current Medications Medications (Trade) Dose Ordered Sig/Philomena Route Start Time Stop Time Status Last Admin (NS Flush) 2 ml UNSCH PRN IV FLUSH 10/12/16 04:30 (NS Flush) 2 ml BID IV FLUSH 10/12/16 09:00 10/13/16 08:54 (Narcan Inj) 0.4 mg UNSCH PRN IV 10/12/16 04:30 (Bumetanide) 1 mg DAILY PO 10/12/16 09:00 10/13/16 08:54 Carvedilol 3.125 mg 3.125 mg Q12HR PO 10/12/16 09:00 10/13/16 08:54 Doxycycline Hyclate 100 mg/ Sodium Chloride 100 ml @ 100 mls/hr Q12H IV 10/12/16 10:00 10/13/16 10:21 (Maxipime Inj/NS Inj) 100 ml @ 200 mls/hr Q24H IV 10/13/16 12:00 10/13/16 12:08 (Mucinex Er) 600 mg BID PO 10/13/16 11:00 10/13/16 12:07 (Pepcid) 10 mg BID PO 10/13/16 21:00 (Synthroid) 25 mcg DAILY@06 PO 10/14/16 06:00 (Mirapex) 0.125 mg HS PO 10/13/16 21:00 (Pravachol) 80 mg HS PO 10/13/16 21:00 Vital Signs / I&O Vital Signs Date Time Temp Pulse Resp B/P Pulse Ox O2 Delivery O2 Flow Rate FiO2 10/13/16 16:24 96 Nasal Cannula 2.00 10/13/16 16:00 96.7 84 16 114/67 92 10/13/16 12:53 98 Nasal Cannula 2.00 10/13/16 12:00 97.3 84 17 125/64 95 10/13/16 08:00 96.4 86 18 142/73 93 10/13/16 00:30 92 Nasal Cannula 2.00 10/13/16 00:00 98.4 83 20 98/57 92 10/12/16 21:53 96 Nasal Cannula 2.00 10/12/16 20:58 96 10/12/16 20:00 97.0 92 16 137/68 93 I/O 10/12/16 10/12/16 10/12/16 10/13/16 10/13/16 10/13/16 07:00 15:00 23:00 07:00 15:00 23:00 Intake Total 0 ml 940 ml 340 ml 120 ml 1040 ml Output Total 450 ml 100 ml 200 ml 400 ml Balance 0 ml 490 ml 240 ml -80 ml 640 ml Intake Oral 0 ml 840 ml 240 ml 120 ml 840 ml IV Total 100 ml 100 ml 200 ml Output Urine Total 450 ml 100 ml 200 ml 400 ml # Voids 0 # Bowel Movements 0 0 0 0 0 Physical Exam GENERAL: Well developed, well nourished. No acute distress. HEENT: Jugular venous pressure is normal. CHEST: Lungs decreased and clear to auscultation bilaterally. Unlabored respiratory effort. CARDIAC: Regular rate and rhythm without S3, S4, or murmur. ABDOMEN: Soft, nontender, EXTREMITIES: No clubbing, cyanosis, or edema. Laboratory Laboratory Tests Test 10/13/16 06:36 White Blood Count 14.1 TH/MM3 Red Blood Count 3.85 MIL/MM3 Hemoglobin 10.7 GM/DL Hematocrit 33.0 % Mean Corpuscular Volume 85.7 FL Mean Corpuscular Hemoglobin 27.8 PG Mean Corpuscular Hemoglobin 32.4 % Concent Red Cell Distribution Width 16.4 % Platelet Count 204 TH/MM3 Mean Platelet Volume 9.0 FL Neutrophils (%) (Auto) 88.6 % Lymphocytes (%) (Auto) 5.5 % Monocytes (%) (Auto) 5.9 % Eosinophils (%) (Auto) 0.0 % Basophils (%) (Auto) 0.0 % Neutrophils # (Auto) 12.5 TH/MM3 Lymphocytes # (Auto) 0.8 TH/MM3 Monocytes # (Auto) 0.8 TH/MM3 Eosinophils # (Auto) 0.0 TH/MM3 Basophils # (Auto) 0.0 TH/MM3 CBC Comment DIFF FINAL Differential Comment Sodium Level 140 MEQ/L Potassium Level 4.7 MEQ/L Chloride Level 107 MEQ/L Carbon Dioxide Level 25.0 MEQ/L Anion Gap 8 MEQ/L Blood Urea Nitrogen 43 MG/DL Creatinine 2.05 MG/DL Estimat Glomerular Filtration 23 ML/MIN Rate Random Glucose 132 MG/DL Calcium Level 9.1 MG/DL Assessment and Plan Problem List: (1) Chronic systolic CHF (congestive heart failure) Assessment and Plan: EF 35%- doing reasonable on present meds -fluid management per nephrology -on coreg, avoiding angelia with CKD and Cr 2.0 (2) Pneumonia Assessment and Plan: on antibiotics per primary team with renal adjustment (3) Hypertension (4) Chronic kidney disease (CKD) (5) Hyperlipidemia Problem Qualifiers (1) Hypertension: Qualified Code: I10 - Essential hypertension Cecelia Bautista MD Oct 13, 2016 16:51
[2016-10-13] MEDS: PRAVASTATIN SOD 80 MG TAB PO SCH (20:31)
[2016-10-13] MEDS: FAMOTIDINE 20 MG TAB PO SCH (20:31)
[2016-10-13] MEDS: PRAMIPEXOLE DIHYDROCHLORIDE 0.25 MG TAB PO SCH (20:32)
[2016-10-14] VITALS (9 sets, daily range): BP systolic 106–130; BP diastolic 56–68; PULSE 68–77; RESP 16–18; TEMP 95.4–97.4; O2SAT 92–97
[2016-10-14] MEDS: RESP: IPRATROPIUM 0.5 MG/2.5 ML NEB NEB SCH ×6 (00:51→21:40)
[2016-10-14] MEDS: LEVOTHYROXINE SODIUM 25 MCG TAB PO SCH (05:22)
--- NOTE | 2016-10-14 08:17 | PD.CARD.PN ---
Subjective Subjective Remarks PT requests d/c Objective Medications Current Medications Medications (Trade) Dose Ordered Sig/Philomena Route Start Time Stop Time Status Last Admin (NS Flush) 2 ml UNSCH PRN IV FLUSH 10/12/16 04:30 (NS Flush) 2 ml BID IV FLUSH 10/12/16 09:00 10/13/16 20:38 (Narcan Inj) 0.4 mg UNSCH PRN IV 10/12/16 04:30 (Bumetanide) 1 mg DAILY PO 10/12/16 09:00 10/13/16 08:54 Carvedilol 3.125 mg 3.125 mg Q12HR PO 10/12/16 09:00 10/13/16 20:31 Doxycycline Hyclate 100 mg/ Sodium Chloride 100 ml @ 100 mls/hr Q12H IV 10/12/16 10:00 10/13/16 20:33 (Maxipime Inj/NS Inj) 100 ml @ 200 mls/hr Q24H IV 10/13/16 12:00 10/13/16 12:08 (Mucinex Er) 600 mg BID PO 10/13/16 11:00 10/13/16 20:31 (Pepcid) 10 mg BID PO 10/13/16 21:00 10/13/16 20:31 (Synthroid) 25 mcg DAILY@06 PO 10/14/16 06:00 10/14/16 05:22 (Mirapex) 0.125 mg HS PO 10/13/16 21:00 10/13/16 20:32 (Pravachol) 80 mg HS PO 10/13/16 21:00 10/13/16 20:31 Vital Signs / I&O Vital Signs Date Time Temp Pulse Resp B/P Pulse Ox O2 Delivery O2 Flow Rate FiO2 10/14/16 04:00 97.2 68 18 121/60 92 10/14/16 00:52 92 Nasal Cannula 2.00 10/13/16 23:00 98.1 77 16 128/128 97 10/13/16 20:00 82 10/13/16 20:00 96 Nasal Cannula 2.00 10/13/16 16:24 96 Nasal Cannula 2.00 10/13/16 16:00 96.7 84 16 114/67 92 10/13/16 12:53 98 Nasal Cannula 2.00 10/13/16 12:00 97.3 84 17 125/64 95 I/O 10/13/16 10/13/16 10/13/16 10/14/16 10/14/16 10/14/16 06:59 14:59 22:59 06:59 14:59 22:59 Intake Total 360 ml 1040 ml 100 ml 600 ml Output Total 300 ml 400 ml 800 ml Balance 60 ml 640 ml 100 ml -200 ml Intake Oral 360 ml 840 ml 600 ml IV Total 200 ml 100 ml Output Urine Total 300 ml 400 ml 800 ml # Voids 2 # Bowel Movements 0 0 0 Physical Exam GENERAL: Well developed, well nourished. No acute distress. HEENT: Jugular venous pressure is normal. CHEST: Lungs decreased and clear to auscultation bilaterally. Unlabored respiratory effort. CARDIAC: Regular rate and rhythm without S3, S4, or murmur. ABDOMEN: Soft, nontender, EXTREMITIES: No clubbing, cyanosis, or edema. Assessment and Plan Problem List: (1) Chronic systolic CHF (congestive heart failure) Assessment and Plan: EF 35%- doing reasonable on present meds -fluid management per nephrology -on coreg, avoiding angelia with CKD -labs pending -reasonable for d/c pending labs and if ok off oxygen (2) Pneumonia Assessment and Plan: on antibiotics per primary team with renal adjustment (3) Hypertension (4) Chronic kidney disease (CKD) (5) Hyperlipidemia Problem Qualifiers (1) Hypertension: Qualified Code: I10 - Essential hypertension Cecelia Bautista MD Oct 14, 2016 08:17
[2016-10-14] MEDS: CARVEDILOL 3.125 MG TAB PO SCH ×2 (09:28→20:24)
[2016-10-14] MEDS: FAMOTIDINE 20 MG TAB PO SCH ×2 (09:28→20:24)
[2016-10-14] MEDS: SODIUM CHLORIDE 0.9% FLUSH 10 ML FLUSH IV FLUSH SCH ×2 (09:29→20:30)
[2016-10-14] MEDS: guaiFENesin E.R. 600 MG TAB PO SCH ×2 (09:29→20:24)
[2016-10-14] MEDS: BUMETANIDE 1 MG TAB PO SCH (09:29)
[2016-10-14] MEDS: DOXYCYCLINE INJ 100 MG in SODIUM CHLORIDE 0.9% INJ 100 ML IV SCH ×2 (09:30→20:28)
--- NOTE | 2016-10-14 09:49 | HHI.PR ---
Subjective Remarks This is a pleasant 86 y/o Female who came to ER with SOB, she has CHF. 10/14: Patient stable seen in her bedroom, the patient states she is fully functional at home and also she does not use Oxygen, her respiratory status is improving, now at room air, her EF by end user support specialist is 35%, fluid management by Nephrology specialist, on Coreg avoiding HUGO inhibitor due to CKD, Cardiology is okay to discharge if off oxygen, her renal function was worsening yesterday not yet cleared by Nephrology specialist even the patient wants to go home today. no nausea, vomit or diarrhea. Objective Vital Signs Date Time Temp Pulse Resp B/P Pulse Ox O2 Delivery O2 Flow Rate FiO2 10/14/16 08:17 95 21 10/14/16 08:00 97.4 77 16 128/68 95 10/14/16 04:00 97.2 68 18 121/60 92 10/14/16 00:52 92 Nasal Cannula 2.00 10/13/16 23:00 98.1 77 16 128/128 97 10/13/16 20:00 82 10/13/16 20:00 96 Nasal Cannula 2.00 10/13/16 16:24 96 Nasal Cannula 2.00 10/13/16 16:00 96.7 84 16 114/67 92 10/13/16 12:53 98 Nasal Cannula 2.00 10/13/16 12:00 97.3 84 17 125/64 95 I/O 10/13/16 10/13/16 10/13/16 10/14/16 10/14/16 10/14/16 07:00 15:00 23:00 07:00 15:00 23:00 Intake Total 120 ml 1040 ml 460 ml 240 ml Output Total 200 ml 400 ml 800 ml Balance -80 ml 640 ml -340 ml 240 ml Intake Oral 120 ml 840 ml 360 ml 240 ml IV Total 200 ml 100 ml Output Urine Total 200 ml 400 ml 800 ml # Voids 2 # Bowel Movements 0 0 0 0 Result Diagram: 10/13/16 0636 10/13/16 0636 Imaging Last Impressions Chest X-Ray 10/12/16 0234 Signed Impressions: Service Date/Time: Wednesday, October 12, 2016 02:44 - CONCLUSION: 1. Patchy bibasilar parenchymal infiltrates suggestive of pneumonia. 2. Cardiomegaly. Clifford Allison MD Chest CT 10/12/16 0000 Signed Impressions: Service Date/Time: Wednesday, October 12, 2016 06:47 - CONCLUSION: 1. Central lobar emphysema 2. Increased interstitial markings bilaterally suggestive of pulmonary edema with bibasilar infiltrates and small effusions. Clifford Allison MD Procedures None Other Results Laboratory Tests Test 10/12/16 10/12/16 10/13/16 02:35 16:17 06:36 Prothrombin Time 11.0 SEC Prothromb Time International 1.0 RATIO Ratio Activated Partial 25.9 SEC Thromboplast Time D-Dimer Quantitative (PE/DVT) 0.49 MG/L FEU Magnesium Level 1.9 MG/DL Total Bilirubin 0.5 MG/DL Aspartate Amino Transf 25 U/L (AST/SGOT) Alanine Aminotransferase 22 U/L (ALT/SGPT) Alkaline Phosphatase 87 U/L B-Type Natriuretic Peptide 850 PG/ML Total Protein 6.6 GM/DL Albumin 3.4 GM/DL Total Creatine Kinase 147 U/L Troponin I 0.19 NG/ML White Blood Count 14.1 TH/MM3 Red Blood Count 3.85 MIL/MM3 Hemoglobin 10.7 GM/DL Hematocrit 33.0 % Mean Corpuscular Volume 85.7 FL Mean Corpuscular Hemoglobin 27.8 PG Mean Corpuscular Hemoglobin 32.4 % Concent Red Cell Distribution Width 16.4 % Platelet Count 204 TH/MM3 Mean Platelet Volume 9.0 FL Neutrophils (%) (Auto) 88.6 % Lymphocytes (%) (Auto) 5.5 % Monocytes (%) (Auto) 5.9 % Eosinophils (%) (Auto) 0.0 % Basophils (%) (Auto) 0.0 % Neutrophils # (Auto) 12.5 TH/MM3 Lymphocytes # (Auto) 0.8 TH/MM3 Monocytes # (Auto) 0.8 TH/MM3 Eosinophils # (Auto) 0.0 TH/MM3 Basophils # (Auto) 0.0 TH/MM3 CBC Comment DIFF FINAL Differential Comment Sodium Level 140 MEQ/L Potassium Level 4.7 MEQ/L Chloride Level 107 MEQ/L Carbon Dioxide Level 25.0 MEQ/L Anion Gap 8 MEQ/L Blood Urea Nitrogen 43 MG/DL Creatinine 2.05 MG/DL Estimat Glomerular Filtration 23 ML/MIN Rate Random Glucose 132 MG/DL Calcium Level 9.1 MG/DL Objective Remarks GENERAL: Well-developed patient, in no apparent distress. SKIN: No rashes, ecchymoses or lesions. Cool and dry. HEAD: Atraumatic. Normocephalic. No temporal or scalp tenderness. EYES: No scleral icterus. No injection or drainage. ENT: Nose without bleeding, purulent drainage or septal hematoma. Airway patent. NECK: Trachea midline. No JVD CARDIOVASCULAR: Regular rate and rhythm without murmurs, gallops, or rubs. RESPIRATORY: Decreased breath sounds bilateral no wheezing or crackles. GASTROINTESTINAL: Abdomen soft, non-tender, nondistended.. No guarding. MUSCULOSKELETAL: Extremities without clubbing, cyanosis, or edema. No calf tenderness. Neurology: Awake, alert, oriented. No focal deficits. Medications and IVs Current Medications Medications (Trade) Dose Ordered Sig/Philomena Route Start Time Stop Time Status Last Admin (NS Flush) 2 ml UNSCH PRN IV FLUSH 10/12/16 04:30 (NS Flush) 2 ml BID IV FLUSH 10/12/16 09:00 10/14/16 09:29 (Narcan Inj) 0.4 mg UNSCH PRN IV 10/12/16 04:30 (Bumetanide) 1 mg DAILY PO 10/12/16 09:00 10/14/16 09:29 Carvedilol 3.125 mg 3.125 mg Q12HR PO 10/12/16 09:00 10/14/16 09:28 Doxycycline Hyclate 100 mg/ Sodium Chloride 100 ml @ 100 mls/hr Q12H IV 10/12/16 10:00 10/14/16 09:30 (Maxipime Inj/NS Inj) 100 ml @ 200 mls/hr Q24H IV 10/13/16 12:00 10/13/16 12:08 (Mucinex Er) 600 mg BID PO 10/13/16 11:00 10/14/16 09:29 (Pepcid) 10 mg BID PO 10/13/16 21:00 10/14/16 09:28 (Synthroid) 25 mcg DAILY@06 PO 10/14/16 06:00 10/14/16 05:22 (Mirapex) 0.125 mg HS PO 10/13/16 21:00 10/13/16 20:32 (Pravachol) 80 mg HS PO 10/13/16 21:00 10/13/16 20:31 A/P Assessment and Plan 1. Acute hypoxemic respiratory failure, followed by end user support specialist Doctor Michele unusual presentation for CHF exacerbation, no weight gain, nor edema, EF 30 to 35%, followed by Nephrology specialist Doctor Ramirez thinks more the case is related to Pneumonia and COPD exacerbation, Mild Pulmonary Edema, at this time recommended by end user support specialist okay for discharge and if off oxygen. 2. Pneumonia her Leukocytosis has increased along with her Neutrophil count will add Cefepime renally adjusted. Improving respiratory status, will take a new CXR PA and Lateral. later today. 3. Hypertension controlled has Beta blockers and diuretics 4. COPD to continue Bronchodilator, Mucolytic and incentive spirometry. 5. Hypothyroidism to continue Home medicines DVT prophylaxiswith heparin. GI prophylaxis on pantoprazole. Discussed Condition With Patient and Nurse Miss Fortune, Follow BMP and CBC later today. Discharge Planning Not yet cleared by Nephrology specialist. follow laboratory later for probable discharge if Off Oxygen and improving Renal function. Jeferson Hagan MD Oct 14, 2016 09:49
[2016-10-14] MEDS: CEFEPIME INJ 1,000 MG in SODIUM CHLORIDE 0.9% INJ 100 ML IV SCH (12:40)
--- NOTE | 2016-10-14 12:49 | HHI.NPPN ---
Subjective History of Present Illness 86-year-old female known to me from before with past medical history of ischemic heart disease, congestive heart failure, hypertension, chronic obstructive pulmonary disease, chronic kidney disease, hypothyroidism, history of cervical cancer who came to the emergency department because of sudden onset of shortness of breath and pressure at the chest. I was called to see the patient for management of her chronic kidney disease and fluid overload status. Additional Remarks Patient is alert, breathing is better, still with nasal cannula. Review of Systems General Constitutional: Fatigue Respiratory Lungs: SOB, Wheeze Cardiovascular Cardiac: PICKETT Objective Data Data 10/13/16 10/14/16 19:00 07:00 Intake Total 1040 ml 700 ml Output Total 400 ml 800 ml Balance 640 ml -100 ml Intake Oral 840 ml 600 ml IV Total 200 ml 100 ml Output Urine Total 400 ml 800 ml # Voids 2 # Bowel Movements 0 0 Vital Signs Date Time Temp Pulse Resp B/P Pulse Ox O2 Delivery O2 Flow Rate FiO2 10/14/16 12:00 96.6 71 16 130/64 95 10/14/16 08:17 95 21 10/14/16 08:00 97.4 77 16 128/68 95 10/14/16 04:00 97.2 68 18 121/60 92 10/14/16 00:52 92 Nasal Cannula 2.00 10/13/16 23:00 98.1 77 16 128/128 97 10/13/16 20:00 82 10/13/16 20:00 96 Nasal Cannula 2.00 10/13/16 16:24 96 Nasal Cannula 2.00 10/13/16 16:00 96.7 84 16 114/67 92 10/13/16 12:53 98 Nasal Cannula 2.00 -: 10/13/16 0636 10/13/16 0636 Physical Exam General Appearance: No Acute Distress, Comfortable Eyes Eye Exam: Pupils Equal Throat Throat Exam: Oral Mucosa [place] & Moist Neck Neck Exam: Neck Supple Pulmonary Resp Exam: No Distress, Crackles, Rhonchi, Decreased Bases, Diminished Breath Sounds Cardiology CV Exam: Regular, Normal Sinus Rhythm Gastrointestinal/Abdomen GI Exam: Soft, Non-Tender, Bowel Sounds Present Extremeties Extremities Exam: No Edema Neurologic Neuro Exam: Alert, Awake, Oriented Psychiatric Psych Exam: Appropriate Responses Assessment/Plan Assessment Summary: ABDULLAHI/Acute Renal Failure, Fluid/Volume Overload, CHF, CKD Stage IV Problem List: (1) Pneumonia (2) Acute exacerbation of CHF (congestive heart failure) (3) Hyperkalemia (4) Shortness of breath (5) Hypertension (6) Chronic kidney disease, stage 4 (severe) Plan The Creatinine is stable, and now it is 2.0. Urine out put is better. Continue antibiotics. On low dose Bumex, 1 mg daily. Continue same Bumex, follow BMP in AM. Try to get off O2. Problem Qualifiers (1) Hypertension: Qualified Code: I10 - Essential hypertension Stefan Guzmán MD Oct 14, 2016 12:49
[2016-10-14 13:04] LABS: BASOPHIL # 0.1 TH/MM3 (0-0.2); BASOPHIL % 0.9 % (0.0-2.0); EOSINOPHIL # 0.3 TH/MM3 (0-0.4); EOSINOPHIL % 2.6 % (0.0-4.0); HEMATOCRIT 36.5 % (35.0-46.0); HEMO FLAGS DIFF FINAL; LYMPH % 14.6 % (9.0-44.0); LYMPHOCYTE # 1.7 TH/MM3 (1.0-4.8); MEAN CELL VOLUME 86.3 FL (80.0-100.0); MEAN CORPUSCULAR HEMOGLOBIN 27.3 PG (27.0-34.0); MEAN CORPUSCULAR HGB CONC 31.6 % (32.0-36.0); MONO % 6.6 % (0.0-8.0); NEUT % 75.3 % (16.0-70.0); PLATELET COUNT 246 TH/MM3 (150-450); RED BLOOD COUNT 4.23 MIL/MM3 (4.00-5.30); RED CELL DISTRIBUTION WIDTH 16.7 % (11.6-17.2); WHITE BLOOD COUNT 11.9 TH/MM3 (4.0-11.0)
[2016-10-14 13:23] LABS: BICARBONATE 22.3 MEQ/L (21.0-32.0); POTASSIUM 4.1 MEQ/L (3.5-5.1)
--- NOTE | 2016-10-14 14:44 | RADRPT ---
EXAM DATE/TIME: 10/14/2016 13:48 [facility] COMPARISON: CHEST SINGLE AP, October 12, 2016, 2:44. INDICATIONS : Short of breath. MEDICAL HISTORY : Cardiovascular disease. Congestive heart failure. Chronic obstructive pulmonary disease. Diverticulit is. Right breast cancer. Cervical cancer. SURGICAL HISTORY : Mastectomy, right. Hysterectomy ENCOUNTER: Initial ACUITY: 2 days PAIN SCORE: 0/10 LOCATION: chest FINDINGS: PA and lateral views of the chest demonstrate cardiomegaly and minimal left basilar density. Slight e levation left hemidiaphragm. Right lung is clear. Osseous structures are intact. CONCLUSION: 1. Slight elevation left hemidiaphragm. 2. Left basilar density likely atelectasis. 3. Right lung now clear. Hemant Irby MD on October 14, 2016 at 14:42 Board Certified Radiologist. This report was verified electronically.
[2016-10-14] MEDS ORDERED: ONDANSETRON HCL 4 MG/2 ML VIAL IV PUSH PRN (15:00)
[2016-10-14] MEDS: PRAMIPEXOLE DIHYDROCHLORIDE 0.25 MG TAB PO SCH (20:24)
[2016-10-14] MEDS: PRAVASTATIN SOD 80 MG TAB PO SCH (20:25)
[2016-10-15] VITALS (7 sets, daily range): BP systolic 106–128; BP diastolic 56–69; PULSE 66–80; RESP 16–18; TEMP 95.2–96.5; O2SAT 94–98
[2016-10-15] MEDS: RESP: IPRATROPIUM 0.5 MG/2.5 ML NEB NEB SCH ×4 (00:37→12:00)
[2016-10-15] MEDS: LEVOTHYROXINE SODIUM 25 MCG TAB PO SCH (04:21)
[2016-10-15 05:18] LABS: AUTOMATED NEUTROPHIL # 5.9 TH/MM3 (1.8-7.7); BASOPHIL # 0.1 TH/MM3 (0-0.2); BASOPHIL % 0.8 % (0.0-2.0); EOSINOPHIL # 0.3 TH/MM3 (0-0.4); EOSINOPHIL % 3.7 % (0.0-4.0); HEMATOCRIT 33.7 % (35.0-46.0); HEMO FLAGS DIFF FINAL; LYMPH % 19.4 % (9.0-44.0); LYMPHOCYTE # 1.7 TH/MM3 (1.0-4.8); MEAN CORPUSCULAR HEMOGLOBIN 27.9 PG (27.0-34.0); MEAN CORPUSCULAR HGB CONC 32.4 % (32.0-36.0); NEUT % 67.1 % (16.0-70.0); PLATELET COUNT 208 TH/MM3 (150-450); RED BLOOD COUNT 3.92 MIL/MM3 (4.00-5.30); RED CELL DISTRIBUTION WIDTH 16.7 % (11.6-17.2); WHITE BLOOD COUNT 8.8 TH/MM3 (4.0-11.0)
[2016-10-15 05:42] LABS: BICARBONATE 25.1 MEQ/L (21.0-32.0)
--- NOTE | 2016-10-15 08:51 | PD.CARD.PN ---
Subjective Subjective Remarks Pt without complaints Objective Medications Current Medications Medications (Trade) Dose Ordered Sig/Philomena Route Start Time Stop Time Status Last Admin (NS Flush) 2 ml UNSCH PRN IV FLUSH 10/12/16 04:30 (NS Flush) 2 ml BID IV FLUSH 10/12/16 09:00 10/14/16 20:30 (Narcan Inj) 0.4 mg UNSCH PRN IV 10/12/16 04:30 (Bumetanide) 1 mg DAILY PO 10/12/16 09:00 10/14/16 09:29 Carvedilol 3.125 mg 3.125 mg Q12HR PO 10/12/16 09:00 10/14/16 20:24 Doxycycline Hyclate 100 mg/ Sodium Chloride 100 ml @ 100 mls/hr Q12H IV 10/12/16 10:00 10/14/16 20:28 (Maxipime Inj/NS Inj) 100 ml @ 200 mls/hr Q24H IV 10/13/16 12:00 10/14/16 12:40 (Mucinex Er) 600 mg BID PO 10/13/16 11:00 10/14/16 20:24 (Pepcid) 10 mg BID PO 10/13/16 21:00 10/14/16 20:24 (Synthroid) 25 mcg DAILY@06 PO 10/14/16 06:00 10/15/16 04:21 (Mirapex) 0.125 mg HS PO 10/13/16 21:00 10/14/16 20:24 (Pravachol) 80 mg HS PO 10/13/16 21:00 10/14/16 20:25 (Zofran Inj) 4 mg Q4HR PRN IV PUSH 10/14/16 15:00 10/14/16 15:08 Vital Signs / I&O Vital Signs Date Time Temp Pulse Resp B/P Pulse Ox O2 Delivery O2 Flow Rate FiO2 10/15/16 08:00 95.7 75 16 128/69 98 10/15/16 07:15 Nasal Cannula 10/15/16 04:00 96.5 76 18 106/56 95 10/15/16 00:00 96.1 77 18 124/58 96 10/14/16 21:40 97 Nasal Cannula 2.00 10/14/16 20:20 95 Nasal Cannula 2.00 10/14/16 20:00 96.9 74 18 106/56 95 10/14/16 16:00 95.4 71 16 119/66 94 10/14/16 12:00 96.6 71 16 130/64 95 10/14/16 09:30 70 10/14/16 09:30 95 Nasal Cannula 2.00 10/14/16 09:30 70 I/O 10/14/16 10/14/16 10/14/16 10/15/16 10/15/16 10/15/16 07:00 15:00 23:00 07:00 15:00 23:00 Intake Total 240 ml 240 ml 340 ml 120 ml Output Total 1000 ml 775 ml 375 ml Balance 240 ml -760 ml -435 ml -255 ml Intake Oral 240 ml 240 ml 240 ml 120 ml IV Total 100 ml Output Urine Total 1000 ml 775 ml 375 ml # Voids 2 # Bowel Movements 0 0 Physical Exam GENERAL: Well developed, well nourished. No acute distress. HEENT: Jugular venous pressure is normal. CHEST: Lungs decreased and clear to auscultation bilaterally. Unlabored respiratory effort. CARDIAC: Regular rate and rhythm without S3, S4, or murmur. ABDOMEN: Soft, nontender, EXTREMITIES: No clubbing, cyanosis, or edema. Laboratory Laboratory Tests Test 10/14/16 10/15/16 12:51 04:59 White Blood Count 11.9 TH/MM3 8.8 TH/MM3 Red Blood Count 4.23 MIL/MM3 3.92 MIL/MM3 Hemoglobin 11.5 GM/DL 10.9 GM/DL Hematocrit 36.5 % 33.7 % Mean Corpuscular Volume 86.3 FL 86.0 FL Mean Corpuscular Hemoglobin 27.3 PG 27.9 PG Mean Corpuscular Hemoglobin 31.6 % 32.4 % Concent Red Cell Distribution Width 16.7 % 16.7 % Platelet Count 246 TH/MM3 208 TH/MM3 Mean Platelet Volume 8.2 FL 8.2 FL Neutrophils (%) (Auto) 75.3 % 67.1 % Lymphocytes (%) (Auto) 14.6 % 19.4 % Monocytes (%) (Auto) 6.6 % 9.0 % Eosinophils (%) (Auto) 2.6 % 3.7 % Basophils (%) (Auto) 0.9 % 0.8 % Neutrophils # (Auto) 9.0 TH/MM3 5.9 TH/MM3 Lymphocytes # (Auto) 1.7 TH/MM3 1.7 TH/MM3 Monocytes # (Auto) 0.8 TH/MM3 0.8 TH/MM3 Eosinophils # (Auto) 0.3 TH/MM3 0.3 TH/MM3 Basophils # (Auto) 0.1 TH/MM3 0.1 TH/MM3 CBC Comment DIFF FINAL DIFF FINAL Differential Comment Sodium Level 140 MEQ/L 142 MEQ/L Potassium Level 4.1 MEQ/L 4.0 MEQ/L Chloride Level 106 MEQ/L 106 MEQ/L Carbon Dioxide Level 22.3 MEQ/L 25.1 MEQ/L Anion Gap 12 MEQ/L 11 MEQ/L Blood Urea Nitrogen 57 MG/DL 60 MG/DL Creatinine 2.08 MG/DL 2.13 MG/DL Estimat Glomerular Filtration 23 ML/MIN 22 ML/MIN Rate Random Glucose 130 MG/DL 97 MG/DL Calcium Level 8.9 MG/DL 8.9 MG/DL Assessment and Plan Problem List: (1) Chronic systolic CHF (congestive heart failure) Assessment and Plan: EF 35%- doing reasonable on present meds -fluid management per nephrology -on coreg, avoiding angelia with CKD -reasonable for d/c pending labs and if ok off oxygen- check again today -no change (2) Pneumonia Assessment and Plan: predominant cause of SHOB at this time (3) Hypertension (4) Chronic kidney disease (CKD) (5) Hyperlipidemia Problem Qualifiers (1) Hypertension: Qualified Code: I10 - Essential hypertension Cecelia Bautista MD Oct 15, 2016 08:51
[2016-10-15] MEDS: guaiFENesin E.R. 600 MG TAB PO SCH (09:00)
[2016-10-15] MEDS: CARVEDILOL 3.125 MG TAB PO SCH (09:00)
[2016-10-15] MEDS: BUMETANIDE 1 MG TAB PO SCH (09:00)
[2016-10-15] MEDS: SODIUM CHLORIDE 0.9% FLUSH 10 ML FLUSH IV FLUSH SCH (09:01)
[2016-10-15] MEDS: FAMOTIDINE 20 MG TAB PO SCH (09:04)
[2016-10-15] MEDS: DOXYCYCLINE INJ 100 MG in SODIUM CHLORIDE 0.9% INJ 100 ML IV SCH (09:10)
--- NOTE | 2016-10-15 10:47 | HHI.NPPN ---
Subjective History of Present Illness 86-year-old female known to me from before with past medical history of ischemic heart disease, congestive heart failure, hypertension, chronic obstructive pulmonary disease, chronic kidney disease, hypothyroidism, history of cervical cancer who came to the emergency department because of sudden onset of shortness of breath and pressure at the chest. I was called to see the patient for management of her chronic kidney disease and fluid overload status. Additional Remarks Patient is alert, breathing is better, now off nasal cannula. Review of Systems General Constitutional: Fatigue Respiratory Lungs: SOB, Wheeze Cardiovascular Cardiac: PICKETT Objective Data Data 10/14/16 10/15/16 18:59 06:59 Intake Total 240 ml 340 ml Output Total 1000 ml 775 ml Balance -760 ml -435 ml Intake Oral 240 ml 240 ml IV Total 100 ml Output Urine Total 1000 ml 775 ml # Bowel Movements 0 Vital Signs Date Time Temp Pulse Resp B/P Pulse Ox O2 Delivery O2 Flow Rate FiO2 10/15/16 09:29 96 10/15/16 09:00 Automatic Cuff 97 10/15/16 08:00 95.7 75 16 128/69 98 10/15/16 07:15 Nasal Cannula 10/15/16 04:00 96.5 76 18 106/56 95 10/15/16 00:00 96.1 77 18 124/58 96 10/14/16 21:40 97 Nasal Cannula 2.00 10/14/16 20:20 95 Nasal Cannula 2.00 10/14/16 20:00 96.9 74 18 106/56 95 10/14/16 16:00 95.4 71 16 119/66 94 10/14/16 12:00 96.6 71 16 130/64 95 -: 10/15/16 0459 10/15/16 0459 Physical Exam General Appearance: No Acute Distress, Comfortable Eyes Eye Exam: Pupils Equal Throat Throat Exam: Oral Mucosa [place] & Moist Neck Neck Exam: Neck Supple Pulmonary Resp Exam: No Distress, Crackles, Rhonchi, Decreased Bases, Diminished Breath Sounds Cardiology CV Exam: Regular, Normal Sinus Rhythm Gastrointestinal/Abdomen GI Exam: Soft, Non-Tender, Bowel Sounds Present Extremeties Extremities Exam: No Edema Neurologic Neuro Exam: Alert, Awake, Oriented Psychiatric Psych Exam: Appropriate Responses Assessment/Plan Assessment Summary: ABDULLAHI/Acute Renal Failure, Fluid/Volume Overload, CHF, CKD Stage IV Problem List: (1) Pneumonia (2) Acute exacerbation of CHF (congestive heart failure) (3) Hyperkalemia (4) Shortness of breath (5) Hypertension (6) Chronic kidney disease, stage 4 (severe) Plan The Creatinine is stable, and now it is 2.1. Urine out put is better. Continue antibiotics. On low dose Bumex, 1 mg daily. Continue same Bumex, follow BMP in AM. Now off O2. Possible D/C, I will follow her in 1 week. Problem Qualifiers (1) Hypertension: Qualified Code: I10 - Essential hypertension Stefan Guzmán MD Oct 15, 2016 10:47
--- NOTE | 2016-10-15 11:17 | HHI.PR ---
Subjective Remarks This is a pleasant 86 y/o Female who came to ER with SOB, she has CHF. 10/14: Patient stable seen in her bedroom, the patient states she is fully functional at home and also she does not use Oxygen, her respiratory status is improving, now at room air, her EF by bed control specialist is 35%, fluid management by Nephrology specialist, on Coreg avoiding HUGO inhibitor due to CKD, Cardiology is okay to discharge if off oxygen, her renal function was worsening yesterday not yet cleared by Nephrology specialist. 10/15: Seen in her bedroom stable and asymptomatic, no nausea, vomit or diarrhea. cleared by bed control specialist and Nephrology specialist for discharge. Objective Vital Signs Date Time Temp Pulse Resp B/P Pulse Ox O2 Delivery O2 Flow Rate FiO2 10/15/16 09:29 96 10/15/16 09:00 Automatic Cuff 97 10/15/16 08:00 95.7 75 16 128/69 98 10/15/16 07:15 Nasal Cannula 10/15/16 04:00 96.5 76 18 106/56 95 10/15/16 00:00 96.1 77 18 124/58 96 10/14/16 21:40 97 Nasal Cannula 2.00 10/14/16 20:20 95 Nasal Cannula 2.00 10/14/16 20:00 96.9 74 18 106/56 95 10/14/16 16:00 95.4 71 16 119/66 94 10/14/16 12:00 96.6 71 16 130/64 95 I/O 10/14/16 10/14/16 10/14/16 10/15/16 10/15/16 10/15/16 06:59 14:59 22:59 06:59 14:59 22:59 Intake Total 600 ml 240 ml 340 ml 120 ml Output Total 800 ml 1000 ml 775 ml 375 ml Balance -200 ml -760 ml -435 ml -255 ml Intake Oral 600 ml 240 ml 240 ml 120 ml IV Total 100 ml Output Urine Total 800 ml 1000 ml 775 ml 375 ml # Voids 2 # Bowel Movements 0 0 Result Diagram: 10/15/16 0459 10/15/16 0459 Imaging Last Impressions Chest X-Ray 10/14/16 0000 Signed Impressions: Service Date/Time: September 13:48 - CONCLUSION: 1. Slight elevation left hemidiaphragm. 2. Left basilar density likely atelectasis. 3. Right lung now clear. Hemant Irby MD Chest CT 10/12/16 0000 Signed Impressions: Service Date/Time: Wednesday, October 12, 2016 06:47 - CONCLUSION: 1. Central lobar emphysema 2. Increased interstitial markings bilaterally suggestive of pulmonary edema with bibasilar infiltrates and small effusions. Clifford Allison MD Procedures None Other Results Laboratory Tests Test 10/12/16 10/12/16 10/15/16 02:35 16:17 04:59 Prothrombin Time 11.0 SEC Prothromb Time International 1.0 RATIO Ratio Activated Partial 25.9 SEC Thromboplast Time D-Dimer Quantitative (PE/DVT) 0.49 MG/L FEU Magnesium Level 1.9 MG/DL Total Bilirubin 0.5 MG/DL Aspartate Amino Transf 25 U/L (AST/SGOT) Alanine Aminotransferase 22 U/L (ALT/SGPT) Alkaline Phosphatase 87 U/L B-Type Natriuretic Peptide 850 PG/ML Total Protein 6.6 GM/DL Albumin 3.4 GM/DL Total Creatine Kinase 147 U/L Troponin I 0.19 NG/ML White Blood Count 8.8 TH/MM3 Red Blood Count 3.92 MIL/MM3 Hemoglobin 10.9 GM/DL Hematocrit 33.7 % Mean Corpuscular Volume 86.0 FL Mean Corpuscular Hemoglobin 27.9 PG Mean Corpuscular Hemoglobin 32.4 % Concent Red Cell Distribution Width 16.7 % Platelet Count 208 TH/MM3 Mean Platelet Volume 8.2 FL Neutrophils (%) (Auto) 67.1 % Lymphocytes (%) (Auto) 19.4 % Monocytes (%) (Auto) 9.0 % Eosinophils (%) (Auto) 3.7 % Basophils (%) (Auto) 0.8 % Neutrophils # (Auto) 5.9 TH/MM3 Lymphocytes # (Auto) 1.7 TH/MM3 Monocytes # (Auto) 0.8 TH/MM3 Eosinophils # (Auto) 0.3 TH/MM3 Basophils # (Auto) 0.1 TH/MM3 CBC Comment DIFF FINAL Differential Comment Sodium Level 142 MEQ/L Potassium Level 4.0 MEQ/L Chloride Level 106 MEQ/L Carbon Dioxide Level 25.1 MEQ/L Anion Gap 11 MEQ/L Blood Urea Nitrogen 60 MG/DL Creatinine 2.13 MG/DL Estimat Glomerular Filtration 22 ML/MIN Rate Random Glucose 97 MG/DL Calcium Level 8.9 MG/DL Objective Remarks GENERAL: Well-developed patient, in no apparent distress. SKIN: No rashes, ecchymoses or lesions. Cool and dry. HEAD: Atraumatic. Normocephalic. No temporal or scalp tenderness. EYES: No scleral icterus. No injection or drainage. ENT: Nose without bleeding, purulent drainage or septal hematoma. Airway patent. NECK: Trachea midline. No JVD CARDIOVASCULAR: Regular rate and rhythm without murmurs, gallops, or rubs. RESPIRATORY: Decreased breath sounds bilateral no wheezing or crackles. GASTROINTESTINAL: Abdomen soft, non-tender, nondistended.. No guarding. MUSCULOSKELETAL: Extremities without clubbing, cyanosis, or edema. No calf tenderness. Neurology: Awake, alert, oriented. No focal deficits. Medications and IVs Current Medications Medications (Trade) Dose Ordered Sig/Philomena Route Start Time Stop Time Status Last Admin (NS Flush) 2 ml UNSCH PRN IV FLUSH 10/12/16 04:30 (NS Flush) 2 ml BID IV FLUSH 10/12/16 09:00 10/15/16 09:01 (Narcan Inj) 0.4 mg UNSCH PRN IV 10/12/16 04:30 (Bumetanide) 1 mg DAILY PO 10/12/16 09:00 10/15/16 09:00 Carvedilol 3.125 mg 3.125 mg Q12HR PO 10/12/16 09:00 10/15/16 09:00 Doxycycline Hyclate 100 mg/ Sodium Chloride 100 ml @ 100 mls/hr Q12H IV 10/12/16 10:00 10/15/16 09:10 (Maxipime Inj/NS Inj) 100 ml @ 200 mls/hr Q24H IV 10/13/16 12:00 10/14/16 12:40 (Mucinex Er) 600 mg BID PO 10/13/16 11:00 10/15/16 09:00 (Pepcid) 10 mg BID PO 10/13/16 21:00 10/15/16 09:04 (Synthroid) 25 mcg DAILY@06 PO 10/14/16 06:00 10/15/16 04:21 (Mirapex) 0.125 mg HS PO 10/13/16 21:00 10/14/16 20:24 (Pravachol) 80 mg HS PO 10/13/16 21:00 10/14/16 20:25 (Zofran Inj) 4 mg Q4HR PRN IV PUSH 10/14/16 15:00 10/14/16 15:08 A/P Assessment and Plan 1. Acute hypoxemic respiratory failure, followed by bed control specialist Doctor Michele unusual presentation for CHF exacerbation, no weight gain, nor edema, EF 30 to 35%, followed by Nephrology specialist Doctor Ramirez thinks more the case is related to Pneumonia and COPD exacerbation, Mild Pulmonary Edema, at this time recommended by bed control specialist okay for discharge and if off oxygen. also by Nephrology okay for discharge on low dose of Bumex 1 mg daily and 2. Pneumonia her Leukocytosis has increased along with her Neutrophil count will add Cefepime renally adjusted. Improving respiratory status, will take a new CXR PA and Lateral improved continue Azithromycin as outpatient 3. Hypertension controlled has Beta blockers and diuretics 4. COPD to continue Bronchodilator, Mucolytic and incentive spirometry. 5. Hypothyroidism to continue Home medicines DVT prophylaxiswith heparin. GI prophylaxis on pantoprazole. Discussed Condition With Patient and Nurse Miss Adhikari. Discharge Planning Not yet cleared by Nephrology specialist. follow laboratory later for probable discharge if Off Oxygen and improving Renal function. Jeferson Hagan MD Oct 15, 2016 11:17
[2016-10-15] MEDS ORDERED: BUME1TAB PO (11:48)
--- NOTE | 2016-10-15 11:51 | HHI.DS ---
Discharge Summary Admission Date Oct 12, 2016 at 03:44 Discharge Date: Oct 15, 2016 Admitting Diagnosis CHF exacerbation, shortness of breath, possible A. fib (1) Chronic kidney disease (CKD) ICD Code: N18.9 Diagnosis: Principal (2) Chronic systolic CHF (congestive heart failure) ICD Code: I50.22 Diagnosis: Principal Procedures None Brief History - From Admission History from patient, ER physician communication, and review of medical records. Patient reported that she was at her normal self and even had an appointment with her pourer buggy ladle at Dr. Bautista yesterday afternoon. She stated she was fine and was not short of breath at that time. Reports her lung exam at that time was normal. However by 11 PM last night, she stated she was starting to get short of breath. She stated she tried to take breathing exercises, and that her breathing was not improving. By around 1 AM, she stated it was so severe that she had to call 911. Per ER report, patient's O2 sat was in the 80s on room air upon EMS arrival. Patient was given nebulizer treatments, and was placed on oxygen. She was also found to be in A. fib with RVR per EMS judgment and therefore was given 20 mg of diltiazem. She was also given steroids. In the emergency room, patient was saturating in the low 90s on 6 L nasal cannular. Patient denies being on oxygen at home. She does report her shortness of breath which started all of a sudden yesterday. But denies any progressive shortness of breath over the past few days. Denies pillow orthopnea. However stated she sleeps on a chair which is almost like a recliner. Patient denies any peripheral edema. She reports that she does have a machine to check her pulse ox at home and it is usually 95% on room air. Patient denies cough/sputum production/fever/night sweats at home. She denies any chest pain although she states she has heaviness in her chest whenever she takes a deep breath. She denies any prolonged recent travels. She is not on blood thinners at home. She states that she is quite ambulatory, still goes to grocery shopping by herself, and is still driving. Patient does report of history of CHF. However she states that she has been in hospital only 4 times and 2 of the times were possibly for CHF exacerbation. She stated she was on diuretics while at hospital but never was discharged on diuretics at home. She has never been on it. She is quite reluctant to use diuretics because she does have stage IV chronic kidney disease and she was told by her sizing machine operator to be careful of them. CBC/BMP: 10/15/16 0459 10/15/16 0459 Significant Findings Laboratory Tests Test 10/12/16 10/13/16 10/14/16 10/15/16 16:17 06:36 12:51 04:59 Troponin I 0.19 NG/ML (0.02-0.05) White Blood Count 14.1 TH/MM3 11.9 TH/MM3 (4.0-11.0) (4.0-11.0) Red Blood Count 3.85 MIL/MM3 3.92 MIL/MM3 (4.00-5.30) (4.00-5.30) Hemoglobin 10.7 GM/DL 11.5 GM/DL 10.9 GM/DL (11.6-15.3) (11.6-15.3) (11.6-15.3) Hematocrit 33.0 % 33.7 % (35.0-46.0) (35.0-46.0) Neutrophils (%) (Auto) 88.6 % 75.3 % (16.0-70.0) (16.0-70.0) Lymphocytes (%) (Auto) 5.5 % (9.0-44.0) Neutrophils # (Auto) 12.5 TH/MM3 9.0 TH/MM3 (1.8-7.7) (1.8-7.7) Lymphocytes # (Auto) 0.8 TH/MM3 (1.0-4.8) Blood Urea Nitrogen 43 MG/DL (7-18) 57 MG/DL (7-18) 60 MG/DL (7-18) Creatinine 2.05 MG/DL 2.08 MG/DL 2.13 MG/DL (0.50-1.00) (0.50-1.00) (0.50-1.00) Estimat Glomerular Filtration 23 ML/MIN (>89) 23 ML/MIN (>89) 22 ML/MIN (>89) Rate Random Glucose 132 MG/DL 130 MG/DL (74-106) (74-106) Mean Corpuscular Hemoglobin 31.6 % Concent (32.0-36.0) Monocytes (%) (Auto) 9.0 % (0.0-8.0) Imaging Last Impressions Chest X-Ray 10/14/16 0000 Signed Impressions: Service Date/Time: September 13:48 - CONCLUSION: 1. Slight elevation left hemidiaphragm. 2. Left basilar density likely atelectasis. 3. Right lung now clear. Hemant Irby MD Chest CT 10/12/16 0000 Signed Impressions: Service Date/Time: Wednesday, October 12, 2016 06:47 - CONCLUSION: 1. Central lobar emphysema 2. Increased interstitial markings bilaterally suggestive of pulmonary edema with bibasilar infiltrates and small effusions. Clifford Allison MD PE at Discharge GENERAL: Well-developed patient, in no apparent distress. SKIN: No rashes, ecchymoses or lesions. Cool and dry. HEAD: Atraumatic. Normocephalic. No temporal or scalp tenderness. EYES: No scleral icterus. No injection or drainage. ENT: Nose without bleeding, purulent drainage or septal hematoma. Airway patent. NECK: Trachea midline. No JVD CARDIOVASCULAR: Regular rate and rhythm without murmurs, gallops, or rubs. RESPIRATORY: Decreased breath sounds bilateral no wheezing or crackles. GASTROINTESTINAL: Abdomen soft, non-tender, nondistended.. No guarding. MUSCULOSKELETAL: Extremities without clubbing, cyanosis, or edema. No calf tenderness. Neurology: Awake, alert, oriented. No focal deficits. Hospital Course This is a pleasant 86 y/o Female who came to ER with SOB, she has CHF. 10/14: Patient stable seen in her bedroom, the patient states she is fully functional at home and also she does not use Oxygen, her respiratory status is improving, now at room air, her EF by regulatory compliance specialist is 35%, fluid management by Nephrology specialist, on Coreg avoiding HUGO inhibitor due to CKD, Cardiology is okay to discharge if off oxygen, her renal function was worsening yesterday not yet cleared by Nephrology specialist. 10/15: Seen in her bedroom stable and asymptomatic, no nausea, vomit or diarrhea. cleared by regulatory compliance specialist and Nephrology specialist for discharge. Assessment and Plan 1. Acute hypoxemic respiratory failure, followed by regulatory compliance specialist Doctor Michele unusual presentation for CHF exacerbation, no weight gain, nor edema, EF 30 to 35%, followed by Nephrology specialist Doctor Ramirez thinks more the case is related to Pneumonia and COPD exacerbation, Mild Pulmonary Edema, at this time recommended by regulatory compliance specialist okay for discharge and if off oxygen. also by Nephrology okay for discharge on low dose of Bumex 1 mg daily and 2. Ruled out Pneumonia, as per Cardiology and Nephrology the patient had more related symptoms for this pathology and antibiotics were removed by specialists. off antibiotics. 3. Hypertension controlled has Beta blockers and diuretics 4. COPD to continue Bronchodilator, Mucolytic and incentive spirometry. 5. Hypothyroidism to continue Home medicines DVT prophylaxiswith heparin. GI prophylaxis on pantoprazole. Discussed Condition With Patient and Nurse Miss Adhikari. Okay from Nephrology and Cardiology to discharge on low dose of Bumex and follow with Nephrology specialist Doctor Ramirez in one week in his office. Pt Condition on Discharge: Good Discharge Disposition: Discharge Home Discharge Time: > 30 minutes Discharge Instructions DIET: Follow Instructions for: Heart Healthy Diet Activities you can perform: Regular-No Restrictions Jeferson Hagan MD Oct 15, 2016 11:51 Jeferson Hagan MD Oct 15, 2016 11:51
[2016-10-15] MEDS: CEFEPIME INJ 1,000 MG in SODIUM CHLORIDE 0.9% INJ 100 ML IV SCH (12:00)
== END 2016-10-15 13:55 | disposition home or self-care (01) | DRG 190 ==
LOC: NEPE 02:22 → NEDA 03:44 → N07A 05:52
PROVIDERS: ADMIT Internal Medicine; ATTEND Internal Medicine
DX: J44.1 Chronic obstructive pulmonary disease with (acute) exacerbation (principal); J96.01 Acute respiratory failure with hypoxia; N18.4 Chronic kidney disease, stage 4 (severe); N17.9 Acute kidney failure, unspecified; I31.3 Pericardial effusion (noninflammatory); I50.22 Chronic systolic (congestive) heart failure; I13.0 Hypertensive heart and chronic kidney disease with heart failure and stage 1 through stage 4 chronic kidney disease, or unspecified chronic kidney disease; I48.91 Unspecified atrial fibrillation; E87.5 Hyperkalemia; E03.9 Hypothyroidism, unspecified; I25.5 Ischemic cardiomyopathy; I35.1 Nonrheumatic aortic (valve) insufficiency; I44.7 Left bundle-branch block, unspecified; I25.2 Old myocardial infarction; I65.29 Occlusion and stenosis of unspecified carotid artery; E78.5 Hyperlipidemia, unspecified; Z87.891 Personal history of nicotine dependence; Z85.41 Personal history of malignant neoplasm of cervix uteri; Z85.3 Personal history of malignant neoplasm of breast; Z90.710 Acquired absence of both cervix and uterus; Z92.3 Personal history of irradiation
CPT/HCPCS: 71010; 71020; 71250; 76937; 80048; 80053; 82550; 83735; 83880; 84484; 85025; 85379; 85610; 85730; 93005; 93306; 94150; 94640; 94664; J0692; J2405; J7644

== ENCOUNTER 2016-11-29 01:08 | Emergency (ER) | payer MEDICARE, OTHER ==
[~2016-11-29] VITALS: Ht 165.1 cm; Wt 67.9 kg
[~2016-11-29 01:08] MED LIST changes: -BENA25CA2 PO; +BUME1TAB PO; -CHOL1TAB29; -PRED20 PO
[2016-11-29 01:17] VITALS: BP 113/59; PULSE 79; RESP 16; TEMP 98; O2SAT 95
[2016-11-29] MEDS ORDERED: GABA100C4 PO (01:34)
[2016-11-29] MEDS ORDERED: CHOL1CAP14 PO (01:34)
[2016-11-29] MEDS ORDERED: FERR325C PO (01:34)
--- NOTE | 2016-11-29 01:38 | PD ---
HPI Chief Complaint: cough, cold Time Seen by Provider: 01:33 Travel History International Travel<30 days: No Contact w/Intl Traveler<30days: No Traveled to known affect area: No History of Present Illness HPI The patient is an 86-year-old female that complains of a nonproductive cough, generalized myalgias and rhinorrhea since Tuesday. She comes into the emergency department thinking she does have a cold but does not want it to go into her chest. She denies any chest pain, shortness of breath, fever, nausea, vomiting or diarrhea. She does have a history of congestive heart failure. She takes Bumex for the congestive heart failure. PFSH Past Medical History Hx Anticoagulant Therapy: Yes (ASA 81mg) Arthritis: Yes Asthma: No Autoimmune Disease: No Heart Rhythm Problems: No Cancer: Yes (breast cancer) Cardiovascular Problems: Yes High Cholesterol: Yes Chemotherapy: No Chest Pain: No Congestive Heart Failure: Yes COPD: Yes Diabetes: No Diminished Hearing: No Diverticulitis: Yes Endocrine: Yes Gastrointestinal Disorders: Yes Genitourinary: No Hypertension: Yes Immune Disorder: No Musculoskeletal: Yes Neurologic: No Psychiatric: No Reproductive: No Respiratory: Yes Immunizations Current: Yes Migraines: Yes Pneumonia: Yes Radiation Therapy: Yes Sleep Apnea: No Thyroid Disease: Yes Past Surgical History Abdominal Surgery: No Cardiac Surgery: No Ear Surgery: No Endocrine Surgery: No Eye Surgery: Yes (CATARACT) Genitourinary Surgery: No Gynecologic Surgery: Yes (hysterectomy, mastectomy, ) Hysterectomy: Yes Mastectomy: Yes (RIGHT) Oral Surgery: No Thoracic Surgery: No Other Surgery: Yes (RIGHT LUMPECTOY) Social History Alcohol Use: No Tobacco Use: No (QUIT 7 yrs ago) Substance Use: No Allergies-Medications (Allergen,Severity, Reaction): Coded Allergies: furosemide (Verified Allergy, Severe, angioedema, 11/29/16) morphine (Verified Adverse Reaction, Intermediate, Nausea/Vomiting, 11/29/16 ) Reported Meds & Prescriptions Reported Meds & Active Scripts Active Bumetanide 1 Mg Tab 1 Mg PO DAILY Famotidine 20 Mg Tab 10 Mg PO BID Reported D3 Maximum Strength (Cholecalciferol) 5,000 Unit Cap 2,000 Units PO DAILY Gabapentin 100 Mg Cap 100 Mg PO BID Iron (Ferrous Sulfate) 325 Mg Cap 325 Mg PO DAILY Simvastatin 40 Mg Tab 40 Mg PO HS Levothyroxine (Levothyroxine Sodium) 25 Mcg Tab 25 Mcg PO DAILY Carvedilol 3.125 Mg Tab 3.125 Mg PO BID Omeprazole 20 Mg Tab 20 Mg PO DAILY Aspirin 81 (Aspirin) 81 Mg Tabdr 81 Mg PO DAILY Review of Systems Except as stated in HPI: all other systems reviewed are Neg Physical Exam Narrative GENERAL: Well-nourished, well-developed, alert and oriented elderly patient in no respiratory distress. Her vital signs are normal. SKIN: Focused skin assessment warm/dry. HEAD: Normocephalic. EYES: No scleral icterus. No injection or drainage. NECK: Supple, trachea midline. No JVD or lymphadenopathy. CARDIOVASCULAR: Regular rate and rhythm without murmurs, gallops, or rubs. RESPIRATORY: Breath sounds equal bilaterally. No accessory muscle use. A few scattered rhonchi are heard, mostly on the left posteriorly. No wheezes are heard. GASTROINTESTINAL: Abdomen soft, non-tender, nondistended. MUSCULOSKELETAL: No cyanosis, or edema. BACK: Nontender without obvious deformity. No CVA tenderness. Data Data Last Documented VS Vital Signs Date Time Temp Pulse Resp B/P (MAP) Pulse Ox O2 Delivery O2 Flow Rate FiO2 11/29/16 01:25 (77) 11/29/16 01:17 98.0 79 16 95 Orders Orders Chest, Pa & Lat (11/29/16 01:33) [facility] Medical Decision Making Medical Screen Exam Complete: Yes Emergency Medical Condition: Yes Medical Record Reviewed: Yes Interpretation(s) The chest x-ray shows no acute infiltrate or change. Differential Diagnosis Viral upper respiratory infection, bronchitis, pneumonia, congestive heart failure Narrative Course The patient has bronchitis, she did have some rhonchi in the left posterior lungs. Plan: Patient be put on Zithromax 500 mg daily for 5 days. Diagnosis Primary Impression: Bronchitis Med/Other Pt SpecificInfo: Prescription(s) given Scripts Azithromycin (Zithromax) 500 Mg Tab 500 MG PO DAILY for Infection for 5 Days, TAB 0 Refills Prov: Jimmy Merritt MD 11/29/16 Disposition: 01 DISCHARGE HOME Condition: Stable Jimmy Merritt MD Nov 29, 2016 01:38
--- NOTE | 2016-11-29 02:02 | RADRPT ---
EXAM DATE/TIME: 11/29/2016 01:43 [facility] COMPARISON: CHEST PA & LAT, October 14, 2016, 13:48. INDICATIONS : Cough. MEDICAL HISTORY : Carcinoma, breast. Hypertension Congestive heart failure. Cervical cancer, Renal failure SURGICAL HISTORY : Hysterectomy. Right breast lumpectomy ENCOUNTER: Initial ACUITY: 4 - 6 days PAIN SCORE: 0/10 LOCATION: Bilateral chest FINDINGS: No infiltrate, effusion or pneumothorax demonstrated. Previously seen consolidation of the left lower lobe has resolved. Heart size stable, mildly enlarged. Calcification again seen of the mitral valve. Tortuous thoracic a soto again noted. CONCLUSION: 1. No pneumonia or other acute cardiopulmonary disease demonstrated. 2. Mild, stable and compensated cardiomegaly. 3. Tortuous thoracic aorta. Sunil Damon MD on November 29, 2016 at 1:58 Board Certified Radiologist. This report was verified electronically.
[2016-11-29] MEDS ORDERED: ZITH500T PO (02:36)
[2016-11-29] MEDS ORDERED: AZITHROMYCIN 250 MG TAB PO ONE (02:45)
== END 2016-11-29 02:50 | disposition home or self-care (01) ==
LOC: PHED 01:08
DX: J40 Bronchitis, not specified as acute or chronic (principal); M79.1 Myalgia; I10 Essential (primary) hypertension; E07.9 Disorder of thyroid, unspecified; E78.00 Pure hypercholesterolemia, unspecified; Z79.82 Long term (current) use of aspirin; Z87.39 Personal history of other diseases of the musculoskeletal system and connective tissue; Z85.3 Personal history of malignant neoplasm of breast; Z86.79 Personal history of other diseases of the circulatory system; Z87.09 Personal history of other diseases of the respiratory system; Z87.19 Personal history of other diseases of the digestive system
CPT/HCPCS: 71020; 99283

== ENCOUNTER 2017-06-30 18:04 | Emergency (ER) | payer OTHER ==
[~2017-06-30] VITALS: Ht 165.1 cm; Wt 70.0 kg
[~2017-06-30 18:04] MED LIST changes: -ASPI-110 PO; +ASPI1TAB57 PO; +D 50CAP2 PO; +FERR325C PO; +GABA100C4 PO; -IRON27TA PO; -OMEP20TA PO; +OMEP20TA93 PO; -PRAM0.12 PO; +ZITH500T PO
[2017-06-30 18:07] VITALS: BP 148/87; PULSE 90; RESP 18; TEMP 100.4; O2SAT 96
[2017-06-30] MEDS ORDERED: SODIUM CHLORIDE 0.9% FLUSH 10 ML FLUSH IVF PRN (18:30)
[2017-06-30] MEDS ORDERED: ACETAMINOPHEN 325 MG TAB PO ONE (18:30)
[2017-06-30] MEDS ORDERED: CEPH250T PO (18:46)
--- NOTE | 2017-06-30 18:51 | PD ---
HPI . Chills Chief Complaint: Cold / Flu Symptoms Time Seen by Provider: 18:22 Travel History International Travel<30 days: No Contact w/Intl Traveler<30days: No Traveled to known affect area: No History of Present Illness HPI This patient presents stating that she just came here this afternoon to get a shot for a cold or the flu. She reports the onset of chills and shortness of breath this afternoon. Her symptoms are very mild. She denies cough. There have been no modifying factors. PFSH Past Medical History Hx Anticoagulant Therapy: Yes (ASA 81mg) Arthritis: Yes Asthma: No Autoimmune Disease: No Heart Rhythm Problems: No Cancer: Yes (breast cancer, cervical CA) Cardiovascular Problems: Yes (CHF) High Cholesterol: Yes Chemotherapy: No Chest Pain: No Congestive Heart Failure: Yes COPD: Yes Diabetes: No Diminished Hearing: No Diverticulitis: Yes Endocrine: Yes Gastrointestinal Disorders: Yes Genitourinary: No Hypertension: Yes Immune Disorder: No Implanted Vascular Access Dvce: No Musculoskeletal: Yes Neurologic: Yes (Restless Leg Syn.) Psychiatric: No Reproductive: No Respiratory: Yes (COPD) Immunizations Current: Yes Migraines: Yes Pneumonia: Yes Radiation Therapy: Yes Sleep Apnea: No Thyroid Disease: Yes ?: Not Past Surgical History Abdominal Surgery: No Cardiac Surgery: No Ear Surgery: No Endocrine Surgery: No Eye Surgery: Yes (CATARACT) Genitourinary Surgery: No Gynecologic Surgery: Yes (hysterectomy, mastectomy, ) Hysterectomy: Yes Mastectomy: Yes (RIGHT lumpectomy) Neurologic Surgery: No Oral Surgery: No Thoracic Surgery: No Other Surgery: Yes (RIGHT LUMPECTOMY) Social History Alcohol Use: No Tobacco Use: No (QUIT 7 yrs ago) Substance Use: No Allergies-Medications (Allergen,Severity, Reaction): Coded Allergies: furosemide (Verified Allergy, Severe, angioedema, 06/30/17) morphine (Verified Adverse Reaction, Intermediate, Nausea/Vomiting, 06/30/17 ) Reported Meds & Prescriptions Reported Meds & Active Scripts Active Reported Cephalexin 250 Mg Tab 250 Mg PO BID Gabapentin 100 Mg Cap 100 Mg PO BID Simvastatin 40 Mg Tab 40 Mg PO HS Levothyroxine (Levothyroxine Sodium) 25 Mcg Tab 25 Mcg PO DAILY Carvedilol 3.125 Mg Tab 3.125 Mg PO BID Omeprazole 20 Mg Tab 20 Mg PO DAILY Aspirin 81 (Aspirin) 81 Mg Tabdr 81 Mg PO DAILY Review of Systems Except as stated in HPI: all other systems reviewed are Neg General / Constitutional: Positive: Chills Respiratory: Positive: Shortness of Breath Physical Exam Narrative GENERAL: Awake and alert and in no acute distress. SKIN: Warm and dry. Normal color and turgor. HEAD: Normocephalic/atraumatic. EYES: Pupils are equal. Extraocular movements are intact. NECK: Normal range of motion. CARDIOVASCULAR: Regular rate and rhythm. She has a systolic ejection murmur. RESPIRATORY: Nonlabored respirations. Lungs are clear with good air movement throughout. MUSCULOSKELETAL: Atraumatic. NEUROLOGICAL: Nonfocal. PSYCHIATRIC: Appropriate mood and affect. Data Data Last Documented VS Vital Signs Date Time Temp Pulse Resp B/P (MAP) Pulse Ox O2 Delivery O2 Flow Rate FiO2 06/30/17 20:27 90 18 147/96 (113) 93 Room Air 06/30/17 18:07 100.4 Orders Orders Basic Metabolic Panel (Bmp) (06/30/17 18:23) Complete Blood Count With Diff (06/30/17 18:23) Lactic Acid Sepsis Protocol (06/30/17 18:23) Influenzae A/B Antigen (06/30/17 18:23) Blood Culture (06/30/17 18:23) Chest, Pa & Lat (06/30/17 18:23) Iv Access Insert/Monitor (06/30/17 18:23) Sodium Chloride 0.9% Flush (Ns Flush) (06/30/17 18:30) Acetaminophen (Tylenol) (06/30/17 18:30) Labs Laboratory Tests Test 06/30/17 20:20 White Blood Count 8.8 TH/MM3 Red Blood Count 4.34 MIL/MM3 Hemoglobin 12.1 GM/DL Hematocrit 37.0 % Mean Corpuscular Volume 85.2 FL Mean Corpuscular Hemoglobin 27.8 PG Mean Corpuscular Hemoglobin Concent 32.6 % Red Cell Distribution Width 16.1 % Platelet Count 236 TH/MM3 Mean Platelet Volume 8.8 FL Neutrophils (%) (Auto) 79.0 % Lymphocytes (%) (Auto) 10.5 % Monocytes (%) (Auto) 7.7 % Eosinophils (%) (Auto) 2.0 % Basophils (%) (Auto) 0.8 % Neutrophils # (Auto) 6.9 TH/MM3 Lymphocytes # (Auto) 0.9 TH/MM3 Monocytes # (Auto) 0.7 TH/MM3 Eosinophils # (Auto) 0.2 TH/MM3 Basophils # (Auto) 0.1 TH/MM3 CBC Comment DIFF FINAL Differential Comment Blood Urea Nitrogen 36 MG/DL Creatinine 2.00 MG/DL Random Glucose 106 MG/DL Calcium Level 9.3 MG/DL Sodium Level 138 MEQ/L Potassium Level 4.6 MEQ/L Chloride Level 107 MEQ/L Carbon Dioxide Level 21.5 MEQ/L Anion Gap 10 MEQ/L Estimat Glomerular Filtration Rate 24 ML/MIN Lactic Acid Level 1.2 mmol/L MDM Medical Decision Making Medical Screen Exam Complete: Yes Emergency Medical Condition: Yes Differential Diagnosis Differential diagnosis includes but is not limited to influenza, upper respiratory infection, bronchitis, pneumonia Narrative Course This patient presents complaining with chills and shortness of breath. Acute onset was this afternoon. Her physical exam is unremarkable. Her vital signs are normal her temp of 100.4. She does not meet SIRS criteria. Last Impressions Chest X-Ray 06/30/171822 Signed Impressions: Service Date/Time: June 18:59 - CONCLUSION: 1. Cardiomegaly with minimal interstitial edema pattern and trace pleural fluid. Elias Ryan MD The chest x-ray was independently reviewed by me. Flu screen is negative. CBC & BMP Diagram 06/30/17 20:20 Calcium Level 9.3 LA 1.2 This patient has no evidence of a significant infectious process. Diagnosis Primary Impression: Upper respiratory infection Qualified Codes: J06.9 - Acute upper respiratory infection, unspecified Patient Instructions: General Instructions, Upper Respiratory Infection (DC) Additional Instructions: I recommend the use of a Neti Pot. You may use a nasal spray such as Afrin for up to 3 days as needed for nasal congestion. You may take an [id number] antihistamine such as Zyrtec, Bettina or Claritin as needed for runny secretions. You may take pseudoephedrine as needed for congestion. You will need to sign for this at the pharmacy. You may take plain Mucinex, 1200 mg twice a day as needed for thick secretions. You may take a cough syrup such as Delsym as needed for cough. Motrin as needed for fever and body aches. Throat lozenges/sprays as needed for sore throat. Warm salt water gargles for sore throat. Hot tea with lemon and honey also helps soothe a sore throat. Disposition: 01 DISCHARGE HOME Condition: Stable Mandy Montesinos MD Jun 30, 2017 18:51
--- NOTE | 2017-06-30 19:28 | RADRPT ---
EXAM DATE/TIME: 06/30/2017 18:59 [facility] COMPARISON: CHEST PA & LAT, November 29, 2016, 1:43. INDICATIONS : Short of breath, weakness and chill starting this afternoon. MEDICAL HISTORY : Congestive heart failure. SURGICAL HISTORY : Lumpectomy, Rt ENCOUNTER: Initial ACUITY: 1 day PAIN SCORE: 0/10 LOCATION: Bilateral chest FINDINGS: PA and lateral views of the chest demonstrate cardiomegaly. Minimal interstitial edema pattern. Trace pleural fluid. No consolidation. No pneumothorax. CONCLUSION: 1. Cardiomegaly with minimal interstitial edema pattern and trace pleural fluid. Elias Ryan MD on June 30, 2017 at 19:25 Board Certified Radiologist. This report was verified electronically.
[2017-06-30 20:27] VITALS: BP 147/96; PULSE 90; RESP 18; O2SAT 93
[2017-06-30 20:42] LABS: AUTOMATED NEUTROPHIL # 6.9 TH/MM3 (1.8-7.7); BASOPHIL # 0.1 TH/MM3 (0-0.2); BASOPHIL % 0.8 % (0.0-2.0); EOSINOPHIL # 0.2 TH/MM3 (0-0.4); HEMOGLOBIN 12.1 GM/DL (11.6-15.3); LYMPH % 10.5 % (9.0-44.0); LYMPHOCYTE # 0.9 TH/MM3 (1.0-4.8); MEAN CELL VOLUME 85.2 FL (80.0-100.0); MEAN CORPUSCULAR HEMOGLOBIN 27.8 PG (27.0-34.0); MEAN CORPUSCULAR HGB CONC 32.6 % (32.0-36.0); MEAN PLATELET VOLUME 8.8 FL (7.0-11.0); MONO % 7.7 % (0.0-8.0); MONOCYTE # 0.7 TH/MM3 (0-0.9); PLATELET COUNT 236 TH/MM3 (150-450); RED BLOOD COUNT 4.34 MIL/MM3 (4.00-5.30); RED CELL DISTRIBUTION WIDTH 16.1 % (11.6-17.2); WHITE BLOOD COUNT 8.8 TH/MM3 (4.0-11.0)
[2017-06-30 20:50] LABS: BICARBONATE 21.5 MEQ/L (21.0-32.0); CALCIUM 9.3 MG/DL (8.5-10.1)
[2017-06-30 21:37] VITALS: BP 154/78
== END 2017-06-30 21:40 | disposition home or self-care (01) ==
LOC: PHED 18:04
DX: J06.9 Acute upper respiratory infection, unspecified (principal); R09.81 Nasal congestion; I51.7 Cardiomegaly; I50.9 Heart failure, unspecified; I11.0 Hypertensive heart disease with heart failure; J44.9 Chronic obstructive pulmonary disease, unspecified; E78.00 Pure hypercholesterolemia, unspecified; Z85.3 Personal history of malignant neoplasm of breast; Z85.41 Personal history of malignant neoplasm of cervix uteri; Z88.5 Allergy status to narcotic agent; Z79.82 Long term (current) use of aspirin
CPT/HCPCS: 71046; 80048; 83605; 85025; 87040; 87804; 99284

== ENCOUNTER 2017-07-04 04:03 | Inpatient (IN) | payer OTHER, MEDICARE ==
[~2017-07-04] VITALS: Ht 162.6 cm; Wt 70.5 kg
[2017-07-04] VITALS (18 sets, daily range): BP systolic 106–198; BP diastolic 60–88; PULSE 68–104; RESP 16–29; TEMP 97.6–98.7; O2SAT 87–100
[~2017-07-04 04:03] MED LIST changes: -BUME1TAB PO; +CEPH250T PO; -D 50CAP2 PO; -FAMO20TA2 PO; -FERR325C PO; -ZITH500T PO
[2017-07-04] MEDS ORDERED: CHOL5000 PO (04:39)
[2017-07-04] MEDS ORDERED: FERR325T18 PO (04:39)
[2017-07-04] MEDS ORDERED: methylPREDNISolone SOD SUCC 125 MG/2 ML VIAL IV PUSH ONE (04:45)
[2017-07-04] MEDS ORDERED: SODIUM CHLORIDE 0.9% FLUSH 10 ML FLUSH IVF PRN (04:45)
[2017-07-04] MEDS: RESP: ALBUTEROL 2.5 MG/IPRATROPIUM 0.5 MG NEB (SCH) INH ×2 (04:54→04:55)
[2017-07-04 04:57] LABS: AUTOMATED NEUTROPHIL # 9.6 TH/MM3 (1.8-7.7); BASOPHIL # 0.1 TH/MM3 (0-0.2); BASOPHIL % 0.4 % (0.0-2.0); EOSINOPHIL # 0.2 TH/MM3 (0-0.4); EOSINOPHIL % 1.8 % (0.0-4.0); HEMATOCRIT 34.4 % (35.0-46.0); HEMOGLOBIN 11.1 GM/DL (11.6-15.3); LYMPH % 7.2 % (9.0-44.0); LYMPHOCYTE # 0.8 TH/MM3 (1.0-4.8); MEAN CELL VOLUME 87.3 FL (80.0-100.0); MEAN CORPUSCULAR HEMOGLOBIN 28.3 PG (27.0-34.0); MEAN CORPUSCULAR HGB CONC 32.4 % (32.0-36.0); MEAN PLATELET VOLUME 8.7 FL (7.0-11.0); MONO % 5.2 % (0.0-8.0); MONOCYTE # 0.6 TH/MM3 (0-0.9); NEUT % 85.4 % (16.0-70.0); PLATELET COUNT 216 TH/MM3 (150-450); RED BLOOD COUNT 3.94 MIL/MM3 (4.00-5.30); RED CELL DISTRIBUTION WIDTH 15.9 % (11.6-17.2); WHITE BLOOD COUNT 11.2 TH/MM3 (4.0-11.0)
[2017-07-04 05:03] LABS: INTERNATIONAL NORMALIZED RATIO 1.1 RATIO; PROTHROMBIN TIME - PATIENT 10.7 SEC (9.8-11.6)
--- NOTE | 2017-07-04 05:04 | RADRPT ---
EXAM DATE/TIME: 07/04/2017 04:38 [facility] COMPARISON: CHEST PA & LAT, June 30, 2017, 18:59. CHEST SINGLE AP, October 12, 2016, 2:44. INDICATIONS : Shortness of breath. MEDICAL HISTORY : Congestive heart failure. SURGICAL HISTORY : Lumpectomy ENCOUNTER: Initial ACUITY: 1 day PAIN SCORE: 0/10 LOCATION: Bilateral chest FINDINGS: A single view of the chest demonstrates bibasilar airspace disease slightly more prominent. Cardiomeg jessica. Increased pulmonary vascularity. Osseous structures are intact. CONCLUSION: Bibasilar airspace disease slightly more prominent on current study. Hemant Irby MD on July 04, 2017 at 5:02 Board Certified Radiologist. This report was verified electronically.
[2017-07-04 05:09] LABS: ALT (GPT) 21 U/L (10-53); AST (GOT) 25 U/L (15-37); BLOOD UREA NITROGEN 30 MG/DL (7-18); CALCIUM 8.4 MG/DL (8.5-10.1); CHLORIDE 106 MEQ/L (98-107); CREATININE 1.91 MG/DL (0.50-1.00); GLOMERULAR FILTRATION RATE 25 ML/MIN (>89); GLUCOSE,RANDOM 199 MG/DL (74-106); SODIUM (NA) 138 MEQ/L (136-145)
[2017-07-04 05:13] LABS: ALKALINE PHOSPHATASE 76 U/L (45-117); TOTAL BILIRUBIN ADULT 0.6 MG/DL (0.2-1.0); TOTAL PROTEIN 6.4 GM/DL (6.4-8.2); TROPONIN I 0.08 NG/ML (0.02-0.05)
[2017-07-04] MEDS ORDERED: LEVOFLOXACIN 750 MG PREMIX INJ 150 ML IV ONE (05:30)
--- NOTE | 2017-07-04 05:56 | PD ---
HPI Chief Complaint: Respiratory Distress Time Seen by Provider: 04:31 Travel History International Travel<30 days: No Contact w/Intl Traveler<30days: No Traveled to known affect area: No History of Present Illness HPI Patient is an 86-year-old female with history of COPD, who comes in complaining of shortness of breath. She was seen here a few days ago for the same thing and she says she has not gotten better. She has been using her albuterol at home without relief. She denies any chest pain. She denies any leg swelling. She denies any fever or chills. She says the shortness of breath has been getting progressively worse. Severity is moderate. PFSH Past Medical History Hx Anticoagulant Therapy: Yes (ASA 81mg) Arthritis: Yes Asthma: No Autoimmune Disease: No Heart Rhythm Problems: No Cancer: Yes (breast cancer, cervical CA) Cardiovascular Problems: Yes (CHF) High Cholesterol: Yes Chemotherapy: No Chest Pain: No Congestive Heart Failure: Yes COPD: Yes Diabetes: No Diminished Hearing: No Diverticulitis: Yes Endocrine: Yes Gastrointestinal Disorders: Yes Genitourinary: No Hypertension: Yes Immune Disorder: No Implanted Vascular Access Dvce: No Musculoskeletal: Yes Neurologic: Yes (Restless Leg Syn.) Psychiatric: No Reproductive: No Respiratory: Yes (COPD) Immunizations Current: Yes Migraines: Yes Pneumonia: Yes Radiation Therapy: Yes Sleep Apnea: No Thyroid Disease: Yes ?: Not Past Surgical History Abdominal Surgery: No Cardiac Surgery: No Ear Surgery: No Endocrine Surgery: No Eye Surgery: Yes (CATARACT) Genitourinary Surgery: No Gynecologic Surgery: Yes (hysterectomy, mastectomy, ) Hysterectomy: Yes Mastectomy: Yes (RIGHT lumpectomy) Neurologic Surgery: No Oral Surgery: No Thoracic Surgery: No Other Surgery: Yes (RIGHT LUMPECTOMY) Social History Alcohol Use: No Tobacco Use: No (QUIT 7 yrs ago) Substance Use: No Allergies-Medications (Allergen,Severity, Reaction): Coded Allergies: furosemide (Verified Allergy, Severe, angioedema, 06/30/17) morphine (Verified Adverse Reaction, Intermediate, Nausea/Vomiting, 06/30/17 ) Reported Meds & Prescriptions Reported Meds & Active Scripts Active Reported Ferrous Sulfate 325 Mg (65 Mg Iron) Tablet 27 Mg PO DAILY Vitamin D3 (Cholecalciferol) 5,000 Unit Cap 5,000 Units PO DAILY Cephalexin 250 Mg Tab 250 Mg PO BID Gabapentin 100 Mg Cap 100 Mg PO BID Simvastatin 40 Mg Tab 40 Mg PO HS Levothyroxine (Levothyroxine Sodium) 25 Mcg Tab 25 Mcg PO DAILY Carvedilol 3.125 Mg Tab 3.125 Mg PO BID Omeprazole 20 Mg Tab 20 Mg PO DAILY Aspirin 81 (Aspirin) 81 Mg Tabdr 81 Mg PO DAILY Review of Systems Except as stated in HPI: all other systems reviewed are Neg General / Constitutional: No: Fever HENT: No: Headaches, Lightheadedness Cardiovascular: No: Chest Pain or Discomfort Respiratory: Positive: Shortness of Breath Gastrointestinal: No: Nausea, Vomiting Musculoskeletal: No: Myalgias, Edema Skin: No Rash, No Change in Pigmentation Neurologic: No: Weakness, Dizziness Physical Exam Narrative GENERAL: Awake and alert, mild respiratory distress. SKIN: Focused skin assessment warm/dry. HEAD: Atraumatic. Normocephalic. EYES: Pupils equal and round. No scleral icterus. ENT: Mucous membranes pink and moist. NECK: Trachea midline. No JVD. CARDIOVASCULAR: Regular rate and rhythm. No murmur appreciated. RESPIRATORY: No accessory muscle use. Wheezing throughout both lungs, decreased breath sounds on the left. Breath sounds equal bilaterally. GASTROINTESTINAL: Abdomen soft, non-tender, nondistended. MUSCULOSKELETAL: No obvious deformities. No clubbing. No cyanosis. No edema. NEUROLOGICAL: Awake and alert. No obvious cranial nerve deficits. Motor grossly within normal limits. Normal speech. PSYCHIATRIC: Appropriate mood and affect; insight and judgment normal. Data Data Last Documented VS Vital Signs Date Time Temp Pulse Resp B/P (MAP) Pulse Ox O2 Delivery O2 Flow Rate FiO2 07/04/17 04:33 BiPAP 40 07/04/17 04:26 98.7 88 29 123/76 (92) 87 Orders Orders Complete Blood Count With Diff (07/04/17 04:31) Comprehensive Metabolic Panel (07/04/17 04:31) B-Type Natriuretic Peptide (07/04/17 04:31) Act Partial Throm Time (Ptt) (07/04/17 04:31) Prothrombin Time / Inr (Pt) (07/04/17 04:31) Troponin I (07/04/17 04:31) Iv Access Insert/Monitor (07/04/17 04:31) Electrocardiogram (07/04/17 04:31) Ecg Monitoring (07/04/17 04:31) Oximetry (07/04/17 04:31) Oxygen Administration (07/04/17 04:31) Chest, Single Ap (07/04/17 04:31) Sodium Chloride 0.9% Flush (Ns Flush) (07/04/17 04:45) Methylprednisolone So Succ Inj (Solumedr (07/04/17 04:45) Albuterol-Ipratropium Neb (Duoneb Neb) (07/04/17 04:45) Levofloxacin 750 Mg Premix Inj (Levaquin (07/04/17 05:30) Labs Laboratory Tests Test 07/04/17 04:35 White Blood Count 11.2 TH/MM3 Red Blood Count 3.94 MIL/MM3 Hemoglobin 11.1 GM/DL Hematocrit 34.4 % Mean Corpuscular Volume 87.3 FL Mean Corpuscular Hemoglobin 28.3 PG Mean Corpuscular Hemoglobin Concent 32.4 % Red Cell Distribution Width 15.9 % Platelet Count 216 TH/MM3 Mean Platelet Volume 8.7 FL Neutrophils (%) (Auto) 85.4 % Lymphocytes (%) (Auto) 7.2 % Monocytes (%) (Auto) 5.2 % Eosinophils (%) (Auto) 1.8 % Basophils (%) (Auto) 0.4 % Neutrophils # (Auto) 9.6 TH/MM3 Lymphocytes # (Auto) 0.8 TH/MM3 Monocytes # (Auto) 0.6 TH/MM3 Eosinophils # (Auto) 0.2 TH/MM3 Basophils # (Auto) 0.1 TH/MM3 CBC Comment DIFF FINAL Differential Comment Prothrombin Time 10.7 SEC Prothromb Time International Ratio 1.1 RATIO Activated Partial Thromboplast Time 25.4 SEC Blood Urea Nitrogen 30 MG/DL Creatinine 1.91 MG/DL Random Glucose 199 MG/DL Total Protein 6.4 GM/DL Albumin 3.0 GM/DL Calcium Level 8.4 MG/DL Alkaline Phosphatase 76 U/L Aspartate Amino Transf (AST/SGOT) 25 U/L Alanine Aminotransferase (ALT/SGPT) 21 U/L Total Bilirubin 0.6 MG/DL Sodium Level 138 MEQ/L Potassium Level 4.1 MEQ/L Chloride Level 106 MEQ/L Carbon Dioxide Level 18.0 MEQ/L Anion Gap 14 MEQ/L Estimat Glomerular Filtration Rate 25 ML/MIN Troponin I 0.08 NG/ML B-Type Natriuretic Peptide 759 PG/ML MDM Medical Decision Making Medical Screen Exam Complete: Yes Emergency Medical Condition: Yes Medical Record Reviewed: Yes Interpretation(s) ECG shows normal sinus rhythm at a rate of 79 with PVCs, LBBB (similar to previous) Differential Diagnosis COPD versus pneumonia versus ACS versus CHF Narrative Course Patient is an 86-year-old female who comes in complaining of shortness of breath. Exam shows wheezing throughout the lungs, decreased breath sounds on the left. IV established, labs sent. Labs concerning for a troponin of 0.08. BN P is elevated to 795. Chest x-ray concerning for worsening bibasilar opacities. Last 24 hours Impressions Chest X-Ray 07/04/17 0431 Signed Impressions: Service Date/Time: Tuesday, July 04, 2017 04:38 - CONCLUSION: Bibasilar airspace disease slightly more prominent on current study. Hemant Irby MD Patient given aspirin. Given Levaquin. Given duo nebs as well as Solu-Medrol. Per EMS, she had a room air sat in the 70s, she was placed on CPAP which improved her saturation to the 90s. Patient continued on BiPAP here. She will be admitted for further management. Diagnosis Primary Impression: COPD exacerbation Additional Impressions: CHF (congestive heart failure) Qualified Codes: I50.9 - Heart failure, unspecified Elevated troponin Admitting Information Admitting Physician Requests: Admit Maritza Ferguson MD Jul 04, 2017 05:56
[2017-07-04] MEDS ORDERED: ACETAMINOPHEN 325 MG TAB PO PRN (06:15)
[2017-07-04] MEDS ORDERED: ASPIRIN 81 MG CHEW TAB CHEW ONE (06:15)
[2017-07-04] MEDS ORDERED: RESP: ALBUTEROL 2.5 MG/IPRATROPIUM 0.5 MG NEB (PRN) NEB (06:15)
[2017-07-04] MEDS ORDERED: SENNOSIDES 8.6 MG TAB PO PRN (06:15)
[2017-07-04] MEDS ORDERED: ONDANSETRON HCL 4 MG/2 ML VIAL IVP PRN (06:15)
[2017-07-04] MEDS ORDERED: LACTULOSE SYRUP 20 GM/30 ML CUP PO PRN (06:15)
[2017-07-04] MEDS ORDERED: BISACODYL 10 MG SUPP RECTAL PRN (06:15)
[2017-07-04] MEDS ORDERED: ACETAMINOPHEN/HYDROcodone 325 MG/10 MG TAB PO PRN (06:15)
[2017-07-04] MEDS ORDERED: MAGNESIUM HYDROXIDE SUSP 30 ML CUP PO PRN (06:15)
[2017-07-04] MEDS ORDERED: SODIUM CHLORIDE 0.9% FLUSH 10 ML FLUSH IV FLUSH PRN (06:15)
[2017-07-04] MEDS ORDERED: ACETAMINOPHEN/HYDROcodone 325 MG/5 MG TAB PO PRN (06:15)
[2017-07-04] MEDS ORDERED: diphenhydrAMINE HCL 50 MG/ML VIAL IV PUSH ONE (06:15)
[2017-07-04] MEDS: RESP: ALBUTEROL 2.5 MG/IPRATROPIUM 0.5 MG NEB (SCH) NEB ×4 (07:55→21:22)
[2017-07-04] MEDS: ASPIRIN EC 81 MG TABEC PO SCH (09:00)
[2017-07-04] MEDS: GABAPENTIN 100 MG CAP PO SCH ×2 (09:52→20:38)
[2017-07-04] MEDS: DOCUSATE SODIUM 50 MG/SENNA 8.6 MG TAB PO SCH ×2 (09:53→20:38)
[2017-07-04] MEDS: PANTOPRAZOLE SOD 20 MG DELAYED RELEASE TAB PO SCH (09:53)
[2017-07-04] MEDS: CARVEDILOL 3.125 MG TAB PO SCH ×2 (09:53→20:38)
[2017-07-04] MEDS: LEVOTHYROXINE SODIUM 25 MCG TAB PO SCH (09:53)
[2017-07-04] MEDS: SODIUM CHLORIDE 0.9% FLUSH 10 ML FLUSH IV FLUSH SCH ×2 (09:54→20:38)
[2017-07-04] MEDS ORDERED: cloNIDine HCL 0.1 MG TAB PO PRN (10:45)
[2017-07-04] MEDS ORDERED: hydrALAZINE HCL 20 MG/ML VIAL IV PUSH ONE ×2 (10:45→14:00)
--- NOTE | 2017-07-04 11:28 | RADRPT ---
EXAM DATE/TIME: 07/04/2017 11:04 [facility] COMPARISON: CT THORAX W/O CONTRAST, October 12, 2016, 6:47. INDICATIONS : Shortness of breath RADIATION DOSE: 6.64 CTDIvol (mGy) MEDICAL HISTORY : Cardiovascular disease. Chronic obstructive pulmonary disease. Congestive heart failure. Emphysema, b reast cancer, cervical cancer SURGICAL HISTORY : Hysterectomy. Right lumpectomy, mastectomy ENCOUNTER: Initial ACUITY: 3 days PAIN SCALE: 2/10 LOCATION: Bilateral chest TECHNIQUE: Volumetric scanning of the chest was performed. Using automated exposure control and adjustment of t he mA and/or kV according to patient size, radiation dose was kept as low as reasonably achievable to obtain optimal diagnostic quality images. DICOM format image data is available electronically for r eview and comparison. Follow-up recommendations for detected pulmonary nodules are based at a minimum on nodule size and pa tient risk factors according to Fleischner Society Guidelines. FINDINGS: LUNGS: Centrilobular emphysematous changes are again noted bilaterally. Patchy opacity is noted within the l eft lower lobe posteriorly consistent with possible pneumonia or atelectasis. Scattered noncalcified nodular densities are also noted within the superior segment of the left lower lobe with the largest measuring 7 mm. Differential includes nodular infiltrate or true pulmonary nodules. Scattered fibroti c scarring is noted PLEURAE: Tiny bilateral pleural effusions are noted. MEDIASTINUM: The heart and great vessels demonstrate no acute abnormality. Stable pretracheal mediastinal lymphade nopathy is noted. Cardiomegaly as well as, coronary artery and mitral valve calcifications are noted. AXILLAE: Within normal limits. No lymphadenopathy. MUSCULOSKELETAL: Within normal limits for patient age. MISCELLANEOUS: The visualized upper abdominal organs demonstrate no acute abnormality. CONCLUSION: 1. Centrilobular emphysematous changes are again noted bilaterally. 2. Patchy opacity is noted within the left lower lobe posteriorly consistent with possible pneumonia or atelectasis. 3. 4. Scattered noncalcified nodular densities are also noted within the superior segment of the left lo wer lobe with the largest measuring 7 mm. Differential includes nodular infiltrate or true pulmonary nodules. The findings described above include a newly detected solid pulmonary nodule of 6-8 mm avera ge diameter. Guidelines from the Fleischner Society for the follow-up and management of newly detecte d indeterminate pulmonary nodules in persons >34 years old depend on nodule size (average of length a nd width) and underlying risk factors (including smoking and other risk factors). Please consider th e following recommendations after clinical assessment of risk factors. For 6-8 mm nodules: 5. In low risk patients, initial follow-up CT at 6-12 months, then 18-24 months if no change. In hig h risk patients, initial follow-up CT at 3-6 months, then 9-12 and 24 months if no change. 6. Cardiomegaly, mitral valve calcifications and coronary artery calcifications. 7. Tiny bilateral pleural effusions. 8. Stable pretracheal mediastinal lymphadenopathy which is nonspecific Hunter Randall MD on July 04, 2017 at 11:17 Board Certified Radiologist. This report was verified electronically.
[2017-07-04] MEDS ORDERED: Vancomycin Consult Pharmacy 1 EA OTHER SCH (12:15)
[2017-07-04] MEDS ORDERED: VANCOMYCIN INJ 1,250 MG in SODIUM CHLOR 0.9% 250 ML INJ 250 ML IV ONE (13:00)
[2017-07-04] MEDS ORDERED: SODIUM CHLOR 0.9% 1000 ML INJ 1,000 ML IV SCH (13:00)
[2017-07-04] MEDS ORDERED: CEFEPIME INJ 2,000 MG in SODIUM CHLORIDE 0.9% INJ 100 ML IV SCH (13:00)
[2017-07-04] MEDS: methylPREDNISolone SOD SUCC 40 MG/1 ML VIAL IV PUSH SCH ×3 (13:09→23:39)
--- NOTE | 2017-07-04 14:51 | HHI.HP ---
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 Patient told me she was on antibiotic for UTI. Currently patient on nasal cannula awake alert denied diarrhea, she denied dysuria urgency or frequency however she was diagnosed with UTI and was given antibiotic. In ED chest x-ray showed bibasilar airspace disease patient was started on a dose of antibiotic with breathing treatment and oxygen, lactic acid was 2.3 Review of Systems All systems reviewed and was positive for what is mentioned in history of present illness otherwise negative Past Family Social History Past Medical History Hypertension COPD CHF Chronic kidney disease Past Surgical History Cervical cancer status post hysterectomy Right lumpectomy, breast cancer Allergies: Coded Allergies: furosemide (Verified Allergy, Severe, angioedema, 06/30/17) levofloxacin (Verified Allergy, Intermediate, Rash, 07/04/17) morphine (Verified Adverse Reaction, Intermediate, Nausea/Vomiting, 06/30/17 ) Family History Review with the patient,not aware of significant medical history related to her problem runs in the family Social History Patient smoked up until 8 years ago started at age 32, denies alcohol or illicit drug abuse Physical Exam Vital Signs Vital Signs Date Time Temp Pulse Resp B/P (MAP) Pulse Ox O2 Delivery O2 Flow Rate FiO2 07/04/17 11:44 80 20 198/88 (124) 96 Nasal Cannula 2.00 07/04/17 09:58 72 18 192/88 (122) 98 Nasal Cannula 2.00 07/04/17 08:51 98 Nasal Cannula 2.00 07/04/17 07:56 97 35 07/04/17 06:17 68 26 143/70 (94) 98 BiPAP 35 4/9/18 04:33 BiPAP 40 07/04/17 04:29 BiPAP 40 07/04/17 04:26 98.7 88 29 123/76 (92) 87 07/04/17 04:10 95 40 Physical Exam GENERAL: This is a well-nourished, well-developed patient, in no apparent distress. SKIN: No rashes, warm and dry HEAD: Atraumatic. Normocephalic. EYES: Pupils equal round and reactive. Extraocular motions intact. No scleral icterus. ENT: Nose without bleeding, or drainage, Airway patent. NECK: Trachea midline. Supple CARDIOVASCULAR: Regular rate and rhythm 2 out of 6 systolic murmur RESPIRATORY: Diminished breath sounds bibasilar with bibasilar crackles GASTROINTESTINAL: Abdomen soft, non-tender, nondistended. Positive bowel sounds MUSCULOSKELETAL: Extremities without clubbing, cyanosis, or edema. Pedal pulses appreciated NEUROLOGICAL: Awake and alert. Moves all extremity. Normal speech.no focal neurological deficit Laboratory Laboratory Tests Test 07/04/17 04:35 07/04/17 10:20 07/04/17 10:40 07/04/17 13:45 White Blood Count 11.2 Red Blood Count 3.94 Hemoglobin 11.1 Hematocrit 34.4 Mean Corpuscular Volume 87.3 Mean Corpuscular Hemoglobin 28.3 Mean Corpuscular Hemoglobin Concent 32.4 Red Cell Distribution Width 15.9 Platelet Count 216 Mean Platelet Volume 8.7 Neutrophils (%) (Auto) 85.4 Lymphocytes (%) (Auto) 7.2 Monocytes (%) (Auto) 5.2 Eosinophils (%) (Auto) 1.8 Basophils (%) (Auto) 0.4 Neutrophils # (Auto) 9.6 Lymphocytes # (Auto) 0.8 Monocytes # (Auto) 0.6 Eosinophils # (Auto) 0.2 Basophils # (Auto) 0.1 CBC Comment DIFF FINAL Differential Comment Prothrombin Time 10.7 Prothromb Time International Ratio 1.1 Activated Partial Thromboplast Time 25.4 Blood Urea Nitrogen 30 Creatinine 1.91 Random Glucose 199 Total Protein 6.4 Albumin 3.0 Calcium Level 8.4 Alkaline Phosphatase 76 Aspartate Amino Transf (AST/SGOT) 25 Alanine Aminotransferase (ALT/SGPT) 21 Total Bilirubin 0.6 Sodium Level 138 Potassium Level 4.1 Chloride Level 106 Carbon Dioxide Level 18.0 Anion Gap 14 Estimat Glomerular Filtration Rate 25 Troponin I 0.08 0.27 B-Type Natriuretic Peptide 759 Blood Gas Puncture Site LT RADIAL Blood Gas Patient Temperature 98.6 Blood Gas HCO3 17 Blood Gas Base Excess -5.2 Blood Gas Oxygen Saturation 90 Arterial Blood pH 7.54 Arterial Blood Partial Pressure CO2 20 Arterial Blood Partial Pressure O2 57 Arterial Blood Oxygen Content 14.6 Arterial Blood Carboxyhemoglobin 0.1 Arterial Blood Methemoglobin 0.3 Blood Gas Hemoglobin 11.6 Blood Gas Inspired Oxygen 21 Lactic Acid Level 2.4 4.4 Result Diagram: 07/04/175 07/04/17434 Imaging Last Impressions Chest X-Ray 07/04/17430 Signed Impressions: Service Date/Time: Tuesday, July 04, 2017 04:38 - CONCLUSION: Bibasilar airspace disease slightly more prominent on current study. Hemant Irby MD Chest CT 07/04/17 0000 Signed Impressions: nonspecific MD José Kennedy VTE Risk Assessment Caprini VTE Risk Assessment: Mod/High Risk (score >= 2) Caprini Risk Assessment Model Point Value = 1 Point Value = 2 Point Value = 3 Point Value = 5 Age 41-60 Minor surgery BMI > 25 kg/m2 Swollen legs Varicose veins or History of unexplained or recurrent spontaneous Oral contraceptives or hormone replacement Sepsis (< 1 month) Serious lung disease, including pneumonia (< 1 month) Abnormal pulmonary function Acute myocardial infarction Congestive heart failure (< 1 month) History of inflammatory bowel disease Medical patient at bed rest Age 61-74 Arthroscopic surgery Major open surgery (> 45 min) Laparoscopic surgery (> 45 min) Malignancy Confined to bed (> 72 hours) Immobilizing plaster cast Central venous access Age >= 75 History of VTE Family history of VTE Factor V Leiden Prothrombin [id number] Lupus anticoagulant Anticardiolipin antibodies Elevated serum homocysteine Heparin-induced thrombocytopenia Other congenital or acquired thrombophilia Stroke (< 1 month) Elective arthroplasty Hip, pelvis, or leg fracture Acute spinal cord injury (< 1 month) Prophylaxis Regimen Total Risk Factor Score Risk Level Prophylaxis Regimen 0-1 Low Early ambulation 2 Moderate Order ONE of the following: *Sequential Compression Device (SCD) *Heparin 5000 units SQ BID 3-4 Higher Order ONE of the following medications: *Heparin 5000 units SQ TID *Enoxaparin/Lovenox 40 mg SQ daily (WT < 150 kg, CrCl > 30 mL/min) *Enoxaparin/Lovenox 30 mg SQ daily (WT < 150 kg, CrCl > 10-29 mL/min) *Enoxaparin/Lovenox 30 mg SQ BID (WT < 150 kg, CrCl > 30 mL/min) AND/OR *Sequential Compression Device (SCD) 5 or more Highest Order ONE of the following medications: *Heparin 5000 units SQ TID (Preferred with Epidurals) *Enoxaparin/Lovenox 40 mg SQ daily (WT < 150 kg, CrCl > 30 mL/min) *Enoxaparin/Lovenox 30 mg SQ daily (WT < 150 kg, CrCl > 10-29 mL/min) *Enoxaparin/Lovenox 30 mg SQ BID (WT < 150 kg, CrCl > 30 mL/min) AND *Sequential Compression Device (SCD) Assessment and Plan Assessment and Plan 86 years old female with history of COPD CHF chronic kidney disease, right lumpectomy breast cancer presented with Worsening dyspnea mostly due to left basilar pneumonia on the basis of COPD History of recent flulike syndrome, flu screening is negative Anion gap metabolic acidosis/lactic acidosis Elevated troponin mostly due to pneumonia/CHF, type II History of CHF ejection fraction 30% however patient does not seem to be volume overloaded, BNP 700 History of chronic kidney disease stage III /4 Leukocytosis with left shift History of hypertension with blood pressure discrepancy between the right and the left due to previous mastectomy and lumpectomy DVT prophylaxis Plan: Admit to telemetry Order stat ABG, CT chest without contrast, stat repeat lactic acid Continue on nasal cannula oxygen DuoNeb, Solu Medrol Started on antibiotic, I will make it broad-spectrum due to high risk patient will be Zosyn and Vanco and cefepime Check urine antigen for Legionella pneumococcus, sputum culture if possible We will give 500 cc of normal saline at 42 cc/h and repeat lactic acid Depending on the ABG result will go further Reviewed EKG no acute ST changes, will order 2D echo and consider consult cardiology Awaiting third set of cardiac enzymes, Patient's blood pressure measuring was 192/88>> she was given a dose of hydralazine 10 mg IV, however need to check on the left side due to blood pressure discrepancy Heparin for DVT prophylaxis Addendum: CT chest came back with Last Impressions Chest X-Ray 07/04/17 0431 Signed Impressions: Service Date/Time: Tuesday, July 04, 2017 04:38 - CONCLUSION: Bibasilar airspace disease slightly more prominent on current study. Hemant Irby MD Chest CT 07/04/17 0000 Signed Impressions: Service Date/Time: Tuesday, July 04, 2017 11:04 - CONCLUSION: 1. Centrilobular emphysematous changes are again noted bilaterally. 2. Patchy opacity is noted within the left lower lobe posteriorly consistent with possible pneumonia or atelectasis. 3. 4. Scattered noncalcified nodular densities are also noted within the superior segment of the left lower lobe with the largest measuring 7 mm. Differential includes nodular infiltrate or true pulmonary nodules. The findings described above include a newly detected solid pulmonary nodule of 6- 8 mm average diameter. Guidelines from the Fleischner Society for the follow-up and management of newly detected indeterminate pulmonary nodules in persons > 34 years old depend on nodule size (average of length and width) and underlying risk factors (including smoking and other risk factors). Please consider the following recommendations after clinical assessment of risk factors. For 6-8 mm nodules: 5. In low risk patients, initial follow-up CT at 6-12 months, then 18-24 months if no change. In high risk patients, initial follow-up CT at 3-6 months, then 9-12 and 24 months if no change. 6. Cardiomegaly, mitral valve calcifications and coronary artery calcifications. 7. Tiny bilateral pleural effusions. 8. Stable pretracheal mediastinal lymphadenopathy which is nonspecific Hunter Randall MD multiple nodular infiltrate and left basilar pneumonia, will consult pulmonology Discussed Condition With Patient , medical student Physician Certification 2 Midnight Certification Type: Admission for Inpatient Services Order for Inpatient Services The services are ordered in accordance with Medicare regulations or non- Medicare payer requirements, as applicable. In the case of services not specified as inpatient-only, they are appropriately provided as inpatient services in accordance with the 2-midnight benchmark. Estimated LOS (days): 3 days is the estimated time the patient will need to remain in the hospital, assuming treatment plan goals are met and no additional complications. Post-Hospital Plan: Not yet determined Chanell Buckley MD Jul 04, 2017 14:51
[2017-07-04] MEDS: PIPERACIL-TAZO 4.5 GM PREMIX 100 ML IV SCH ×2 (15:06→20:38)
--- NOTE | 2017-07-04 15:27 | EKG ---
Date Performed: 07/04/2017 Time Performed: 04:41:54 PTAGE: 86 years EKG: Sinus rhythm WITH OCCASIONAL SUPRAVENTRICULAR PREMATURE COMPLEXES MARKED RIGHT AXIS DEVIATION INTRAVENTRICULAR CO NDUCTION DELAY Since the previous tracing, no significant change noted ABNORMAL ECG PREVIOUS TRACING : 10/12/2016 13.34 DOCTOR: Heather Camacho Interpretating Date/Time 07/04/2017 15:19:59
[2017-07-04] MEDS ORDERED: LORazepam 2 MG/ML VIAL IV PUSH ONE (15:30)
--- NOTE | 2017-07-04 19:12 | MB ---
cc: Filipe Joshi MD DATE: 07/04/2017 REQUESTING PHYSICIAN: Chanell Buckley MD REASON FOR CONSULTATION: Pneumonia and lung infiltrate. HISTORY OF PRESENT ILLNESS: Ms. Treviño is a pleasant 86-year-old female who has a history of CHF, COPD and stage IV chronic kidney disease. She follows with Dr. Guzmán. The patient was not feeling well for the last 5 days. She has cold and flu-like symptoms. She was seen in the emergency room. Her flu test was negative. She was sent on Tylenol. Over the next 2-3 days, she was doing okay. She has cough and congestion, but no fever or chills, but yesterday, she became very short of breath and congested and decided to come to the emergency room. She had a CT scan of the chest done, which shows that she has central lobular emphysema, patchy opacities in the left lower lobe and nodular infiltrate in it. Her CBC showed WBC count of 11.2, hemoglobin 11.1, hematocrit 34, MCV 87, platelet count 216. Sodium is 130, potassium 4.1, chloride 106, CO2 of 18, BUN 30, creatinine 1.91. INR is 1.1. PAST MEDICAL HISTORY: Significant for a history of COPD, congestive heart failure, chronic kidney disease, history of CA of the cervix, status post hysterectomy, history of CA of the breast, status post right lumpectomy, followed by 33 radiation treatments. MEDICATIONS: She is currently taking cefepime 2 grams q. 24 hours, pravastatin 80 mg a day, Zosyn IV, Solu-Medrol 40 mg q. 6 hours, clonidine 0.1 mg a day, aspirin 81 mg a day, Coreg 3.125 mg twice a day, Neurontin 100 mg twice a day, Protonix 20 mg a day, levothyroxine 25 mcg a day. ALLERGIES: FUROSEMIDE, LEVAQUIN AND MORPHINE. 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 She has a history of smoking since age 32 until 8 years ago. No alcohol use. FAMILY HISTORY: She is a , lives with her daughter. She has 3 children. REVIEW OF SYSTEMS: Normally, she is up and around and active. Weight is stable. No stroke. No DVT or pulmonary embolism. PHYSICAL EXAMINATION: GENERAL: Pleasant, elderly female, mild short of breath, not in any acute distress. VITAL SIGNS: Blood pressure 156/84, heart rate 90, respirations 16, temperature 97.6. HEENT: Pupils are equal and reactive to light. Oral mucosa and nasal mucosa normal. NECK: Supple. JVD noted. CHEST: Bilaterally has basilar rales and rhonchi. CARDIOVASCULAR: S1, S2 normal. ABDOMEN: Benign. EXTREMITIES: No edema. IMPRESSION: 1. Left basal pneumonia. 2. Nodular infiltrate. 3. Chronic obstructive pulmonary disease, mild exacerbation. 4. Congestive heart failure. 5. Chronic kidney disease. PLAN: We will continue with antibiotic, give aerosol treatment. Monitor her CBC and electrolytes. She is stable on room air. Further treatment will depend on the course in the hospital. Because of the lung nodule, patient will need CT scan of the chest in about 3-6 months as outpatient. Thank you, Dr. Buckley, for this consult. MD SHER Dickinson/SB , 06:38 PM , 07:10 PM DANIKA
[2017-07-04] MEDS: PRAVASTATIN SOD 80 MG TAB PO SCH (20:38)
--- NOTE | 2017-07-04 21:35 | EKG ---
Date Performed: 07/04/2017 Time Performed: 19:56:40 PTAGE: 86 years EKG: Sinus rhythm with PVC(s) with borderline 1st degree A-V block Left axis deviation Left bundle branch block Abnorm al ECG Compared to prior electrocardiogram, Premature ventricular contractions are now present PREVIOUS TRACING : 07/04/2017 04.41 DOCTOR: Rodrigo Lizama Interpretating Date/Time 07/04/2017 21:33:30
[2017-07-05] VITALS (35 sets, daily range): BP systolic 96–174; BP diastolic 64–114; PULSE 80–155; RESP 16–28; TEMP 97.5–99; O2SAT 86–100
[2017-07-05] MEDS: PIPERACIL-TAZO 4.5 GM PREMIX 100 ML IV SCH (02:06)
[2017-07-05] MEDS: methylPREDNISolone SOD SUCC 40 MG/1 ML VIAL IV PUSH SCH ×3 (05:49→17:13)
[2017-07-05] MEDS: LEVOTHYROXINE SODIUM 25 MCG TAB PO SCH (05:49)
[2017-07-05] MEDS ORDERED: LEVOFLOXACIN 750 MG PREMIX INJ 150 ML IV SCH (06:00)
[2017-07-05 06:37] LABS: AUTOMATED NEUTROPHIL # 11.8 TH/MM3 (1.8-7.7); BASOPHIL % 0.3 % (0.0-2.0); HEMATOCRIT 34.7 % (35.0-46.0); HEMOGLOBIN 11.2 GM/DL (11.6-15.3); LYMPH % 7.8 % (9.0-44.0); MEAN CELL VOLUME 86.3 FL (80.0-100.0); MEAN CORPUSCULAR HEMOGLOBIN 27.8 PG (27.0-34.0); MEAN CORPUSCULAR HGB CONC 32.2 % (32.0-36.0); MEAN PLATELET VOLUME 8.5 FL (7.0-11.0); MONO % 2.7 % (0.0-8.0); MONOCYTE # 0.4 TH/MM3 (0-0.9); NEUT % 89.2 % (16.0-70.0); PLATELET COUNT 239 TH/MM3 (150-450); RED BLOOD COUNT 4.03 MIL/MM3 (4.00-5.30); RED CELL DISTRIBUTION WIDTH 16.1 % (11.6-17.2); WHITE BLOOD COUNT 13.2 TH/MM3 (4.0-11.0)
[2017-07-05 07:00] LABS: ALBUMIN 3.1 GM/DL (3.4-5.0); AST (GOT) 26 U/L (15-37); BICARBONATE 17.1 MEQ/L (21.0-32.0); BLOOD UREA NITROGEN 37 MG/DL (7-18); CALCIUM 8.6 MG/DL (8.5-10.1); CHLORIDE 111 MEQ/L (98-107); CREATININE 2.35 MG/DL (0.50-1.00); GLOMERULAR FILTRATION RATE 20 ML/MIN (>89); GLUCOSE,RANDOM 165 MG/DL (74-106); SODIUM (NA) 141 MEQ/L (136-145)
[2017-07-05 07:06] LABS: ALKALINE PHOSPHATASE 62 U/L (45-117); ALT (GPT) 20 U/L (10-53); RANDOM VANCOMYCIN 10.4 COMMENT; TOTAL BILIRUBIN ADULT 0.5 MG/DL (0.2-1.0); TOTAL PROTEIN 6.9 GM/DL (6.4-8.2)
[2017-07-05] MEDS: RESP: ALBUTEROL 2.5 MG/IPRATROPIUM 0.5 MG NEB (SCH) NEB ×4 (08:38→19:50)
[2017-07-05] MEDS: SODIUM CHLORIDE 0.9% FLUSH 10 ML FLUSH IV FLUSH SCH ×2 (09:00→20:57)
[2017-07-05] MEDS: PANTOPRAZOLE SOD 20 MG DELAYED RELEASE TAB PO SCH (09:52)
[2017-07-05] MEDS: CARVEDILOL 3.125 MG TAB PO SCH ×2 (09:52→20:58)
[2017-07-05] MEDS: DOCUSATE SODIUM 50 MG/SENNA 8.6 MG TAB PO SCH ×2 (09:52→20:57)
[2017-07-05] MEDS: GABAPENTIN 100 MG CAP PO SCH ×2 (09:52→20:58)
[2017-07-05] MEDS: ASPIRIN EC 81 MG TABEC PO SCH (09:53)
[2017-07-05] MEDS: PIPERACILLIN/TAZ 2.25 GM VIAL 2.25 GM in SODIUM CHLORIDE 0.9% INJ 50 ML IV SCH ×3 (12:07→20:58)
[2017-07-05] MEDS ORDERED: CEFEPIME INJ 2,000 MG in SODIUM CHLORIDE 0.9% INJ 100 ML IV SCH (13:00)
[2017-07-05] MEDS ORDERED: VANCOMYCIN 1,500 MG/NS 500 ML IV ONE ×2 (15:00)
--- NOTE | 2017-07-05 16:17 | HHI.PR ---
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 Patient told me she was on antibiotic for UTI. Currently patient on nasal cannula awake alert denied diarrhea, she denied dysuria urgency or frequency however she was diagnosed with UTI and was given antibiotic. In ED chest x-ray showed bibasilar airspace disease patient was started on a dose of antibiotic with breathing treatment and oxygen, lactic acid was 2.3 4-10 will make sure she is on vancomycin and Zosyn Continue on duo nebs scheduled and as needed Mucinex Symbicort Pulmonary consult Incentive spirometry Steroids A.m. labs Physical therapy and Occupational Therapy to evaluate and treat Objective Vitals Vital Signs Date Time Temp Pulse Resp B/P (MAP) Pulse Ox O2 Delivery O2 Flow Rate FiO2 07/05/17 08:43 99 21 07/05/17 06:00 90 07/05/17 05:00 106 07/05/17 04:00 86 07/05/17 03:00 80 07/05/17 03:00 98.0 81 16 114/64 (81) 96 07/05/17 02:00 82 07/05/17 01:00 96 07/05/17 00:00 98.1 86 16 96/69 (78) 92 07/05/17 00:00 96 07/04/17 23:00 94 07/04/17 22:00 90 07/04/17 21:24 96 Nasal Cannula 2.00 07/04/17 21:00 94 07/04/17 20:00 96 07/04/17 20:00 97.6 97 18 106/67 (80) 93 07/04/17 19:00 100 07/04/17 18:25 104 07/04/17 18:01 96 07/04/17 17:59 97 07/04/17 17:39 07/04/17 17:30 97.6 98 16 156/84 (108) 100 I/O 07/04/17 07/04/17 07/04/17 07/05/17 07/05/17 07/05/17 07:00 15:00 23:00 07:00 15:00 23:00 Intake Total 75 ml 650 ml 940 ml Output Total 600 ml Balance 75 ml 650 ml 340 ml Intake Oral 100 ml 240 ml IV Total 75 ml 550 ml 700 ml Output Urine Total 600 ml # Bowel Movements 0 1 Result Diagram: 07/05/17 0537 07/05/17 0537 Other Results Laboratory Tests Test 07/04/17 04:35 07/04/17 10:20 07/04/17 10:40 07/04/17 13:45 White Blood Count 11.2 TH/MM3 Red Blood Count 3.94 MIL/MM3 Hemoglobin 11.1 GM/DL Hematocrit 34.4 % Mean Corpuscular Volume 87.3 FL Mean Corpuscular Hemoglobin 28.3 PG Mean Corpuscular Hemoglobin Concent 32.4 % Red Cell Distribution Width 15.9 % Platelet Count 216 TH/MM3 Mean Platelet Volume 8.7 FL Neutrophils (%) (Auto) 85.4 % Lymphocytes (%) (Auto) 7.2 % Monocytes (%) (Auto) 5.2 % Eosinophils (%) (Auto) 1.8 % Basophils (%) (Auto) 0.4 % Neutrophils # (Auto) 9.6 TH/MM3 Lymphocytes # (Auto) 0.8 TH/MM3 Monocytes # (Auto) 0.6 TH/MM3 Eosinophils # (Auto) 0.2 TH/MM3 Basophils # (Auto) 0.1 TH/MM3 CBC Comment DIFF FINAL Differential Comment Prothrombin Time 10.7 SEC Prothromb Time International Ratio 1.1 RATIO Activated Partial Thromboplast Time 25.4 SEC Blood Urea Nitrogen 30 MG/DL Creatinine 1.91 MG/DL Random Glucose 199 MG/DL Total Protein 6.4 GM/DL Albumin 3.0 GM/DL Calcium Level 8.4 MG/DL Alkaline Phosphatase 76 U/L Aspartate Amino Transf (AST/SGOT) 25 U/L Alanine Aminotransferase (ALT/SGPT) 21 U/L Total Bilirubin 0.6 MG/DL Sodium Level 138 MEQ/L Potassium Level 4.1 MEQ/L Chloride Level 106 MEQ/L Carbon Dioxide Level 18.0 MEQ/L Anion Gap 14 MEQ/L Estimat Glomerular Filtration Rate 25 ML/MIN Troponin I 0.08 NG/ML 0.27 NG/ML B-Type Natriuretic Peptide 759 PG/ML Blood Gas Puncture Site LT RADIAL Blood Gas Patient Temperature 98.6 Blood Gas HCO3 17 mmol/L Blood Gas Base Excess -5.2 mmol/L Blood Gas Oxygen Saturation 90 % Arterial Blood pH 7.54 Arterial Blood Partial Pressure CO2 20 mmHg Arterial Blood Partial Pressure O2 57 mmHG Arterial Blood Oxygen Content 14.6 Vol % Arterial Blood Carboxyhemoglobin 0.1 % Arterial Blood Methemoglobin 0.3 % Blood Gas Hemoglobin 11.6 G/DL Blood Gas Inspired Oxygen 21 % Lactic Acid Level 2.4 mmol/L 4.4 mmol/L Test 07/04/17 16:07 07/04/17 21:32 07/05/17 05:37 Troponin I 0.24 NG/ML Lactic Acid Level 1.9 mmol/L White Blood Count 13.2 TH/MM3 Red Blood Count 4.03 MIL/MM3 Hemoglobin 11.2 GM/DL Hematocrit 34.7 % Mean Corpuscular Volume 86.3 FL Mean Corpuscular Hemoglobin 27.8 PG Mean Corpuscular Hemoglobin Concent 32.2 % Red Cell Distribution Width 16.1 % Platelet Count 239 TH/MM3 Mean Platelet Volume 8.5 FL Neutrophils (%) (Auto) 89.2 % Lymphocytes (%) (Auto) 7.8 % Monocytes (%) (Auto) 2.7 % Eosinophils (%) (Auto) 0.0 % Basophils (%) (Auto) 0.3 % Neutrophils # (Auto) 11.8 TH/MM3 Lymphocytes # (Auto) 1.0 TH/MM3 Monocytes # (Auto) 0.4 TH/MM3 Eosinophils # (Auto) 0.0 TH/MM3 Basophils # (Auto) 0.0 TH/MM3 CBC Comment DIFF FINAL Differential Comment Blood Urea Nitrogen 37 MG/DL Creatinine 2.35 MG/DL Random Glucose 165 MG/DL Total Protein 6.9 GM/DL Albumin 3.1 GM/DL Calcium Level 8.6 MG/DL Alkaline Phosphatase 62 U/L Aspartate Amino Transf (AST/SGOT) 26 U/L Alanine Aminotransferase (ALT/SGPT) 20 U/L Total Bilirubin 0.5 MG/DL Sodium Level 141 MEQ/L Potassium Level 3.8 MEQ/L Chloride Level 111 MEQ/L Carbon Dioxide Level 17.1 MEQ/L Anion Gap 13 MEQ/L Estimat Glomerular Filtration Rate 20 ML/MIN Random Vancomycin Level 10.4 COMMENT Imaging Last Impressions Chest X-Ray 07/04/17 0985 Signed Impressions: Service Date/Time: Tuesday, July 04, 2017 04:38 - CONCLUSION: Bibasilar airspace disease slightly more prominent on current study. Hemant Irby MD Chest CT 07/04/17 0000 Signed Impressions: Service Date/Time: Tuesday, July 04, 2017 11:04 - CONCLUSION: 1. Centrilobular emphysematous changes are again noted bilaterally. 2. Patchy opacity is noted within the left lower lobe posteriorly consistent with possible pneumonia or atelectasis. 3. 4. Scattered noncalcified nodular densities are also noted within the superior segment of the left lower lobe with the largest measuring 7 mm. Differential includes nodular infiltrate or true pulmonary nodules. The findings described above include a newly detected solid pulmonary nodule of 6- 8 mm average diameter. Guidelines from the Fleischner Society for the follow-up and management of newly detected indeterminate pulmonary nodules in persons > 34 years old depend on nodule size (average of length and width) and underlying risk factors (including smoking and other risk factors). Please consider the following recommendations after clinical assessment of risk factors. For 6-8 mm nodules: 5. In low risk patients, initial follow-up CT at 6-12 months, then 18-24 months if no change. In high risk patients, initial follow-up CT at 3-6 months, then 9-12 and 24 months if no change. 6. Cardiomegaly, mitral valve calcifications and coronary artery calcifications. 7. Tiny bilateral pleural effusions. 8. Stable pretracheal mediastinal lymphadenopathy which is nonspecific Hutner Randall MD Objective Remarks GENERAL: Awake alert and oriented 3 talkative and cooperative appears younger than stated age SKIN: Warm and dry. HEAD: Atraumatic. Normocephalic. EYES: Pupils equal and round. No scleral icterus. No injection or drainage. Extraocular muscles intact ENT: No nasal bleeding or discharge. Mucous membranes pink and moist. Tongue is midline NECK: Trachea midline. No JVD. Supple CARDIOVASCULAR: Regular rate and rhythm. S1-S2 no S3 or S4 RESPIRATORY: No accessory muscle use. Has some rhonchi and wheezes throughout all lung [place]. Breath sounds equal bilaterally. GASTROINTESTINAL: Abdomen soft, non-tender, nondistended. Hepatic and splenic margins not palpable. MUSCULOSKELETAL: Extremities without clubbing, cyanosis, or edema. No obvious deformities. NEUROLOGICAL: Awake and alert. No obvious cranial nerve deficits. Motor grossly within normal limits. Five out of 5 muscle strength in the arms and legs. Normal speech. PSYCHIATRIC: Appropriate mood and affect; insight and judgment normal. Medications and IVs Current Medications Sodium Chloride (NS Flush) 2 ml UNSCH PRN IVF FLUSH AFTER USING IV ACCESS; Start 07/04/17 at 04:45; Stop 07/04/17 at 06:58; Status DC Methylprednisolone Sodium Succinate (SoluMEDROL INJ) 125 mg ONCE ONCE IV PUSH Last administered on 07/04/17at 04:54; Start 07/04/17 at 04:45; Stop 07/04/17 at 04: 46; Status DC Albuterol/ Ipratropium (Duoneb Neb) 1 ampule Q15M INH Last administered on at 04:55; Start 07/04/17 at 04:45; Stop 07/04/17 at 05:01; Status DC Levofloxacin/ Dextrose 150 ml @ 100 mls/hr ONCE ONCE IV Last administered on 07/04/17at 05:35; Start 07/04/17 at 05:30; Stop 07/04/17 at 06:59; Status DC Aspirin (Aspirin Chew) 324 mg ONCE ONCE CHEW Last administered on 07/04/17at 09: 51; Start 07/04/17 at 06:15; Stop 07/04/17 at 06:16; Status DC Diphenhydramine HCl (Benadryl Inj) 25 mg ONCE ONCE IV PUSH Last administered on 07/04/17at 06:20; Start 07/04/17 at 06:15; Stop 07/04/17 at 06:16; Status DC Methylprednisolone Sodium Succinate (SoluMEDROL INJ) 40 mg Q6HR IV PUSH Last administered on 07/05/17at 12:00; Start 07/04/17 at 12:00 Albuterol/ Ipratropium (Duoneb Neb) 1 ampule Q4HR WHILE AWAKE NEB NEB Last administered on 07/05/17at 12:31; Start 07/04/17 at 08:00 Albuterol/ Ipratropium (Duoneb Neb) 1 ampule Q2HR NEB PRN NEB SOB/WHEEZING; Start 07/04/17 at 06:15 Levofloxacin/ Dextrose 150 ml @ 100 mls/hr Q24H IV ; Start 07/05/17 at 06:00; Stop 07/05/17 at 06:00; Status DC Sodium Chloride (NS Flush) 2 ml UNSCH PRN IV FLUSH FLUSH AFTER USING IV ACCESS ; Start 07/04/17 at 06:15 Sodium Chloride (NS Flush) 2 ml BID IV FLUSH Last administered on 07/05/17at 09: 00; Start 07/04/17 at 09:00 Ondansetron HCl (Zofran Inj) 4 mg Q6H PRN IVP NAUSEA OR VOMITING; Start at 06:15 Acetaminophen (Tylenol) 650 mg Q6H PRN PO FEVER/PAIN SCALE 1 TO 2; Start at 06:15 Acetaminophen/ Hydrocodone Bitart ([place] 5-325 Mg) 1 tab Q4H PRN PO PAIN SCALE 3 TO 5; Start 07/04/17 at 06:15 Acetaminophen/ Hydrocodone Bitart ([place] 10-325 Mg) 1 tab Q4H PRN PO PAIN SCALE 6 TO 10; Start 07/04/17 at 06:15 Senna/Docusate Sodium (Shirley-Colace) 1 tab BID PO Last administered on at 09:52; Start 07/04/17 at 09:00 Magnesium Hydroxide (Milk Of Magnesia Liq) 30 ml Q12H PRN PO Mild constipation ; Start 07/04/17 at 06:15 Sennosides (Senokot) 17.2 mg Q12H PRN PO Moderate constipation; Start 07/04/17 at 06:15 Bisacodyl (Dulcolax Supp) 10 mg DAILY PRN RECTAL SEVERE CONSITIPATION; Start at 06:15 Lactulose (Lactulose Liq) 30 ml DAILY PRN PO SEVERE CONSITIPATION; Start at 06:15 Aspirin (Ecotrin Ec) 81 mg DAILY PO Last administered on 07/05/17at 09:53; Start 07/04/17 at 09:00 Carvedilol (Coreg) 3.125 mg BID PO Last administered on 07/05/17at 09:52; Start 07/04/17 at 09:00 Gabapentin (Neurontin) 100 mg BID PO Last administered on 07/05/17at 09:52; Start 07/04/17 at 09:00 Levothyroxine Sodium (Synthroid) 25 mcg DAILY@0600 PO Last administered on 07/05at 05:49; Start 07/04/17 at 07:00 Pantoprazole Sodium (Protonix) 20 mg DAILY PO Last administered on 07/05/17at 09 :52; Start 07/04/17 at 09:00 Pravastatin Sodium (Pravachol) 80 mg HS PO Last administered on 07/04/17at 20:38 ; Start 07/04/17 at 21:00 Hydralazine HCl (Apresoline Inj) 10 mg ONCE ONCE IV PUSH Last administered on 07/04/17at 10:58; Start 07/04/17 at 10:45; Stop 07/04/17 at 10:46; Status DC Clonidine (Catapres) 0.1 mg Q6H PRN PO bp>160/90; Start 07/04/17 at 10:45 Sodium Chloride 1,000 ml @ 42 mls/hr [id number] IV Last administered on 07/04/17at 13:10; Start 07/04/17 at 13:00; Stop 07/05/17 at 00:54; Status DC Piperacillin Sod/ Tazobactam Sod 100 ml @ 200 mls/hr Q6H IV Last administered on 07/05/17at 02:06; Start 07/04/17 at 14:00; Stop 07/05/17 at 08:58; Status DC Cefepime HCl 2000 mg/Sodium Chloride 100 ml @ 200 mls/hr Q8H IV Last administered on 07/04/17at 13:10; Start 07/04/17 at 13:00; Stop 07/04/17 at 14:25; Status DC Vancomycin HCl 1250 mg/Sodium Chloride 250 ml @ 250 mls/hr ONCE ONCE IV Last administered on 07/04/17at 15:05; Start 07/04/17 at 13:00; Stop 07/04/17 at 13:59; Status DC Pharmacy Profile Note 0 ml @ 0 mls/hr UNSCH OTHER ; Start 07/04/17 at 12:15 Hydralazine HCl (Apresoline Inj) 20 mg NOW ONCE IV PUSH ; Start 07/04/17 at 14: 00; Stop 07/04/17 at 14:01; Status DC Cefepime HCl 2000 mg/Sodium Chloride 100 ml @ 200 mls/hr Q24H IV Last administered on 07/05/17at 12:10; Start 07/05/17 at 13:00 Lorazepam (Ativan Inj) 0.5 mg ONCE ONCE IV PUSH Last administered on 07/04/17at 15:47; Start 07/04/17 at 15:30; Stop 07/04/17 at 15:36; Status DC Piperacillin Sod/ Tazobactam Sod 2.25 gm/Sodium Chloride 50 ml @ 100 mls/hr Q6H IV Last administered on 07/05/17at 12:07; Start 07/05/17 at 09:00 Vancomycin HCl 1500 mg/Sodium Chloride 515 ml @ 257.5 mls/ hr ONCE ONCE IV ; Start 07/05/17 at 15:00; Stop 07/05/17 at 16:59 A/P Assessment and Plan 86 years old female with history of COPD CHF chronic kidney disease, right lumpectomy breast cancer presented with Worsening dyspnea mostly due to left basilar pneumonia on the basis of COPD History of recent flulike syndrome, flu screening is negative Anion gap metabolic acidosis/lactic acidosis Elevated troponin mostly due to pneumonia/CHF, type II History of CHF ejection fraction 30% however patient does not seem to be volume overloaded, BNP 700 History of chronic kidney disease stage III /4 Leukocytosis with left shift History of hypertension with blood pressure discrepancy between the right and the left due to previous mastectomy and lumpectomy DVT prophylaxis CT CHEST SHOW LEFT LOWER LOBE PNEUMONIA AND OR ATELECTASIS Plan: Admit to telemetry Order stat ABG, CT chest without contrast, stat repeat lactic acid Continue on nasal cannula oxygen DuoNeb, Solu Medrol Started on antibiotic, I will make it broad-spectrum due to high risk patient will be Zosyn and Vanco Check urine antigen for Legionella pneumococcus, sputum culture if possible We will give 500 cc of normal saline at 42 cc/h and repeat lactic acid Depending on the ABG result will go further Reviewed EKG no acute ST changes, will order 2D echo and consider consult cardiology Awaiting third set of cardiac enzymes, Patient's blood pressure measuring was 192/88>> she was given a dose of hydralazine 10 mg IV, however need to check on the left side due to blood pressure discrepancy Heparin for DVT prophylaxis PULMONARY CONSULTED TIFFANY, MUCINEX STEROIDS Discharge Planning PENDING IMPROVEMENT Andrew Holder DO Jul 05, 2017 16:17
--- NOTE | 2017-07-05 20:16 | HHI.PR ---
Subjective Remarks 86 YOWF with COPD,Left basal infilt, CKD Breathing better Up in chair Mild congestion no sig sp No Fever Objective Vital Signs Vital Signs Date Time Temp Pulse Resp B/P (MAP) Pulse Ox O2 Delivery O2 Flow Rate FiO2 07/05/17 19:54 98 Nasal Cannula 2.00 07/05/17 18:00 86 07/05/17 17:00 96 07/05/17 16:00 92 07/05/17 15:00 98.5 100 16 112/77 (89) 98 07/05/17 15:00 94 07/05/17 14:00 96 07/05/17 13:00 110 07/05/17 12:00 108 07/05/17 11:30 99.0 94 18 122/77 (92) 98 07/05/17 11:00 100 07/05/17 10:00 94 07/05/17 09:00 88 07/05/17 08:43 99 21 07/05/17 08:00 82 07/05/17 07:10 98.9 100 16 142/82 (102) 98 07/05/17 07:00 102 07/05/17 06:00 90 07/05/17 05:00 106 07/05/17 04:00 86 07/05/17 03:00 80 07/05/17 03:00 98.0 81 16 114/64 (81) 96 07/05/17 02:00 82 07/05/17 01:00 96 07/05/17 00:00 98.1 86 16 96/69 (78) 92 07/05/17 00:00 96 07/04/17 23:00 94 07/04/17 22:00 90 07/04/17 21:24 96 Nasal Cannula 2.00 07/04/17 21:00 94 I/O 07/04/17 07/04/17 07/04/17 07/05/17 07/05/17 07/05/17 07:00 15:00 23:00 07:00 15:00 23:00 Intake Total 75 ml 650 ml 940 ml 720 ml Output Total 600 ml 720 ml Balance 75 ml 650 ml 340 ml 0 ml Intake Oral 100 ml 240 ml 720 ml IV Total 75 ml 550 ml 700 ml Output Urine Total 600 ml 720 ml # Bowel Movements 0 1 3 Result Diagram: 4/01/12 0537 07/05/1737 Objective Remarks GENERAL: MBMN WF, mild sob SKIN: Warm and dry. HEAD: Normocephalic. EYES: No scleral icterus. No injection or drainage. NECK: Supple, trachea midline. No JVD or lymphadenopathy. CARDIOVASCULAR: Regular rate and rhythm without murmurs, gallops, or rubs. RESPIRATORY: Breath sounds equal bilaterally. No accessory muscle use. GASTROINTESTINAL: Abdomen soft, non-tender, nondistended. MUSCULOSKELETAL: No cyanosis, or edema. BACK: Nontender without obvious deformity. No CVA tenderness. A/P Assessment and Plan IMPRESSION: 1. Left basal pneumonia. 2. Nodular infiltrate. 3. Chronic obstructive pulmonary disease, mild exacerbation. 4. Congestive heart failure. 5. Chronic kidney disease PLAN: Aerosol nebs Cont Abx Solumedrol 40 mg q 6 hrs monitor renal functions Stable on RA Filipe Joshi MD Jul 05, 2017 20:16
[2017-07-05] MEDS: BUDESONIDE-FORMOTEROL 160/4.5 MCG INHALER INH SCH (20:58)
[2017-07-05] MEDS: guaiFENesin E.R. 600 MG TAB PO SCH (20:58)
[2017-07-05] MEDS: PRAVASTATIN SOD 80 MG TAB PO SCH (20:58)
[2017-07-05] MEDS ORDERED: DILTIAZEM HCL 25 MG/5 ML VIAL IV ONE (22:15)
[2017-07-05] MEDS ORDERED: BUMETANIDE 1 MG/4 ML IV PUSH ONE (22:30)
[2017-07-05] MEDS ORDERED: EPINEPHrine HCL (1:10,000) 1 MG/10 ML SYRINGE ONE (22:45)
--- NOTE | 2017-07-05 22:45 | HHI.PR ---
Addendum to Inpatient Note Addendum Reason: Additional Documentation Additional Information S: Resident team paged for a Halicat at approximately 2200. Patient is a 86- year-old female with history of hypertension, COPD, CHF, chronic kidney disease. Nursing team reports that the patient had recently shown a rhythm of A. fib with RVR on layout artist, ordered and EKG which showed the same. She is also recently started to have respiratory distress and was placed on BiPAP. Patient was unable to answer in full sentences, however can answer yes or no questions. Denies chest pain, headache, dizziness. Notes shortness of breath. O: GENERAL: Laying in bed, BiPAP on, increased respiratory effort SKIN: Warm and dry. HEAD: Atraumatic. Normocephalic. EYES: Pupils equal and round. No scleral icterus. No injection or drainage. ENT: No nasal bleeding or discharge. Mucous membranes pink and moist. NECK: Trachea midline. No JVD. CARDIOVASCULAR: Tachycardic, irregular rhythm RESPIRATORY: Bilateral coarse breath sounds, wheezes, crackles. GASTROINTESTINAL: Abdomen soft, non-tender, nondistended. Hepatic and splenic margins not palpable. MUSCULOSKELETAL: Extremities without clubbing, cyanosis. 1+ pedal edema. No obvious deformities. NEUROLOGICAL: Awake and alert. No obvious cranial nerve deficits. Motor grossly within normal limits. ABG Test 07/05/17 22:05 Arterial Blood Carboxyhemoglobin 0.0 % Arterial Blood Methemoglobin 1.6 % Arterial Blood Oxygen Content 16.7 Vol % Arterial Blood Partial Pressure CO2 45 mmHg H Arterial Blood Partial Pressure O2 119 mmHg Arterial Blood pH 7.17 *L Blood Gas Base Excess -11.4 mmol/L L Blood Gas HCO3 16 mmol/L *L Blood Gas Hemoglobin 12.5 G/DL Blood Gas Inspired Oxygen 100 % Blood Gas Liter Flow 15 L/M Blood Gas Oxygen Saturation 94 % Oxygen Delivery Device Non-Rebreathing Mask BP: 174/116 Pulse: 160s RR 34 PO2 94% A/P: 86-year-old female with history of COPD, CHF, CKD, HTN with A. fib/RVR, respiratory distress. Primary team (Mariaa Bates) had also been contacted, requested Cardizem bolus. Patient has been getting antibiotics all day, is allergic to Lasix. High potential for fluid overload at this time. -follow-up CXR, CMP -Bumex 2 mg -carvedilol bolus -observe for response -Transfer to ICU, respiratory distress, acidotic FailNick joshua MD R1 Jul 05, 2017 22:45
[2017-07-05] MEDS ORDERED: ATROPINE SULFATE 1 MG/10 ML SYRINGE ONE (22:46)
[2017-07-05 22:47] LABS: BICARBONATE 16.7 MEQ/L (21.0-32.0); CALCIUM 8.5 MG/DL (8.5-10.1); CREATININE 2.19 MG/DL (0.50-1.00); MAGNESIUM 2.6 MG/DL (1.5-2.5); PHOSPHORUS 4.4 MG/DL (2.5-4.9)
--- NOTE | 2017-07-05 22:58 | RADRPT ---
EXAM DATE/TIME: 07/05/2017 22:47 [facility] COMPARISON: CHEST SINGLE AP, July 04, 2017, 4:38. INDICATIONS : Sudden onset of shortness of breath. Halicat code. MEDICAL HISTORY : Cardiovascular disease. Chronic obstructive pulmonary disease. Congestive heart failure. Emphysema. B reast cancer. Cervical cancer. SURGICAL HISTORY : Hysterectomy. Right lumpectomy, mastectomy. ENCOUNTER: Initial ACUITY: 1 day PAIN SCORE: Non-responsive. LOCATION: Bilateral chest FINDINGS: A single AP erect portable view of the chest was obtained and demonstrates a new patchy infiltrate th roughout the right lung. There is milder patchy opacity remaining at the left lung base. The heart si ze is mildly enlarged. There is mild blunting of the right costophrenic angle. Atherosclerotic change s are again noted in the aorta. Multiple overlying electrocardiogram leads. CONCLUSION: New patchy in the right lung which may represent pneumonia or asymmetric pulmonary edema. Nick Mg MD on July 05, 2017 at 22:54 Board Certified Radiologist. This report was verified electronically.
[2017-07-05 23:11] LABS: ALBUMIN 3.2 GM/DL (3.4-5.0); DIRECT BILIRUBIN ADULT 0.2 MG/DL (0.0-0.2)
[2017-07-05 23:13] LABS: INDIRECT BILIRUBIN 0.2 MG/DL (0.0-0.8); TOTAL BILIRUBIN ADULT 0.4 MG/DL (0.2-1.0); TOTAL PROTEIN 7.2 GM/DL (6.4-8.2)
[2017-07-05] MEDS ORDERED: SODIUM BICARBONATE 8.4% INJ 50 MEQ/50 ML SYR ONE (23:47)
[2017-07-05] MEDS ORDERED: AMIODARONE INJ 150 MG in DEXTROSE 5% IN WATER 100ML INJ 100 ML IV ONE ×2 (23:57)
--- NOTE | 2017-07-05 23:57 | PD.CONS ---
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 Patient told me she was on antibiotic for UTI. Currently patient on nasal cannula awake alert denied diarrhea, she denied dysuria urgency or frequency however she was diagnosed with UTI and was given antibiotic. In ED chest x-ray showed bibasilar airspace disease patient was started on a dose of antibiotic with breathing treatment and oxygen, lactic acid was 2.3 Review of Systems ROS Unable to obtain patient in respiratory distress on facemask BiPAP Past Family Social History Allergies: Coded Allergies: furosemide (Verified Allergy, Severe, angioedema, 06/30/17) levofloxacin (Verified Allergy, Intermediate, Rash, 07/04/17) morphine (Verified Adverse Reaction, Intermediate, Nausea/Vomiting, 06/30/17 ) Past Medical History Hypertension COPD CHF Chronic kidney disease Past Surgical History Cervical cancer status post hysterectomy Right lumpectomy, breast cancer Reported Medications Reported Meds & Active Scripts Active Reported Ferrous Sulfate 325 Mg (65 Mg Iron) Tablet 27 Mg PO DAILY Vitamin D3 (Cholecalciferol) 5,000 Unit Cap 5,000 Units PO DAILY Cephalexin 250 Mg Tab 250 Mg PO BID Gabapentin 100 Mg Cap 100 Mg PO BID Simvastatin 40 Mg Tab 40 Mg PO HS Levothyroxine (Levothyroxine Sodium) 25 Mcg Tab 25 Mcg PO DAILY Carvedilol 3.125 Mg Tab 3.125 Mg PO BID Omeprazole 20 Mg Tab 20 Mg PO DAILY Aspirin 81 (Aspirin) 81 Mg Tabdr 81 Mg PO DAILY Active Ordered Medications Current Medications Medications (Trade) Dose Ordered Sig/Philomena Route PRN Reason Start Time Stop Time Status Last Admin Dose Admin Methylprednisolone Sodium Succinate (SoluMEDROL INJ) 40 mg Q6HR IV PUSH 07/04/17 12:00 07/06/17 00:00 Albuterol/ Ipratropium (Duoneb Neb) 1 ampule Q4HR WHILE AWAKE NEB NEB 07/04/17 08:00 07/05/17 19:50 Albuterol/ Ipratropium (Duoneb Neb) 1 ampule Q2HR NEB PRN NEB SOB/WHEEZING 07/04/17 06:15 Sodium Chloride (NS Flush) 2 ml UNSCH PRN IV FLUSH FLUSH AFTER USING IV ACCESS 07/04/17 06:15 Sodium Chloride (NS Flush) 2 ml BID IV FLUSH 07/04/17 09:00 07/05/17 20:57 Ondansetron HCl (Zofran Inj) 4 mg Q6H PRN IVP NAUSEA OR VOMITING 07/04/17 06:15 Acetaminophen (Tylenol) 650 mg Q6H PRN PO FEVER/PAIN SCALE 1 TO 2 07/04/17 06:15 Acetaminophen/ Hydrocodone Bitart (Staley 5-325 Mg) 1 tab Q4H PRN PO PAIN SCALE 3 TO 5 07/04/17 06:15 Acetaminophen/ Hydrocodone Bitart (Staley 10-325 Mg) 1 tab Q4H PRN PO PAIN SCALE 6 TO 10 07/04/17 06:15 Senna/Docusate Sodium (Shirley-Colace) 1 tab BID PO 07/04/17 09:00 07/05/17 09:52 Magnesium Hydroxide (Milk Of Magnesia Liq) 30 ml Q12H PRN PO Mild constipation 07/04/17 06:15 Sennosides (Senokot) 17.2 mg Q12H PRN PO Moderate constipation 07/04/17 06:15 Bisacodyl (Dulcolax Supp) 10 mg DAILY PRN RECTAL SEVERE CONSITIPATION 07/04/17 06:15 Lactulose (Lactulose Liq) 30 ml DAILY PRN PO SEVERE CONSITIPATION 07/04/17 06:15 Aspirin (Ecotrin Ec) 81 mg DAILY PO 07/04/17 09:00 07/05/17 09:53 Carvedilol (Coreg) 3.125 mg BID PO 07/04/17 09:00 07/05/17 20:58 Gabapentin (Neurontin) 100 mg BID PO 07/04/17 09:00 07/05/17 20:58 Levothyroxine Sodium (Synthroid) 25 mcg DAILY@0600 PO 07/04/17 07:00 07/05/17 05:49 Pantoprazole Sodium (Protonix) 20 mg DAILY PO 07/04/17 09:00 07/05/17 09:52 Pravastatin Sodium (Pravachol) 80 mg HS PO 07/04/17 21:00 07/05/17 20:58 Clonidine (Catapres) 0.1 mg Q6H PRN PO bp>160/90 07/04/17 10:45 Pharmacy Profile Note 0 ml @ 0 mls/hr UNSCH OTHER 07/04/17 12:15 Piperacillin Sod/ Tazobactam Sod 2.25 gm/Sodium Chloride 50 ml @ 100 mls/hr Q6H IV 07/05/17 09:00 07/05/17 20:58 Guaifenesin (Mucinex Er) 600 mg BID PO 07/05/17 21:00 07/05/17 20:58 Budesonide/ Formoterol Fumarate (Symbicort 160-4.5 Mcg Inh) 1 puff Q12HR INH 07/05/17 21:00 07/05/17 20:58 Amiodarone HCl 450 mg/Sodium Chloride 250 ml @ 33.33 mls/ hr Q7H31M PRN IV Per Protocol 07/06/17 00:15 Family History Review with the patient,not aware of significant medical history related to her problem runs in the family Social History Patient smoked up until 8 years ago started at age 32, denies alcohol or illicit drug abuse Physical Exam Vital Signs Vital Signs Date Time Temp Pulse Resp B/P (MAP) Pulse Ox O2 Delivery O2 Flow Rate FiO2 07/05/17 23:23 152 25 133/83 (100) 93 07/05/17 23:00 132 07/05/17 23:00 91 15.00 100 07/05/17 22:12 98 65 07/05/17 22:05 100 65 07/05/17 19:54 98 Nasal Cannula 2.00 07/05/17 18:00 86 07/05/17 17:00 96 07/05/17 16:00 92 07/05/17 15:00 98.5 100 16 112/77 (89) 98 07/05/17 15:00 94 07/05/17 14:00 96 07/05/17 13:00 110 07/05/17 12:00 108 07/05/17 11:30 99.0 94 18 122/77 (92) 98 07/05/17 11:00 100 07/05/17 10:00 94 07/05/17 09:00 88 07/05/17 08:43 99 21 07/05/17 08:00 82 07/05/17 07:10 98.9 100 16 142/82 (102) 98 07/05/17 07:00 102 07/05/17 06:00 90 07/05/17 05:00 106 07/05/17 04:00 86 07/05/17 03:00 80 07/05/17 03:00 98.0 81 16 114/64 (81) 96 07/05/17 02:00 82 07/05/17 01:00 96 07/05/17 00:00 98.1 86 16 96/69 (78) 92 07/05/17 00:00 96 Physical Exam GENERAL: This is a well-nourished, well-developed elderly female on facemask BiPAP SKIN: No rashes, warm and dry HEAD: Atraumatic. Normocephalic. EYES: Pupils equal round and reactive. Extraocular motions intact. No scleral icterus. ENT: Nose without bleeding, or drainage, Airway patent. NECK: Trachea midline. Supple CARDIOVASCULAR: Regular rate and rhythm 2 out of 6 systolic murmur RESPIRATORY: Diminished breath sounds bibasilar with bibasilar crackles GASTROINTESTINAL: Abdomen soft, non-tender, nondistended. Positive bowel sounds MUSCULOSKELETAL: Extremities without clubbing, cyanosis, or edema. Pedal pulses appreciated NEUROLOGICAL: Awake and alert. Moves all extremity. Normal speech. No focal neurological deficit Laboratory Laboratory Tests Test 07/05/17 05:37 07/05/17 22:05 07/05/17 22:23 White Blood Count 13.2 Red Blood Count 4.03 Hemoglobin 11.2 Hematocrit 34.7 Mean Corpuscular Volume 86.3 Mean Corpuscular Hemoglobin 27.8 Mean Corpuscular Hemoglobin Concent 32.2 Red Cell Distribution Width 16.1 Platelet Count 239 Mean Platelet Volume 8.5 Neutrophils (%) (Auto) 89.2 Lymphocytes (%) (Auto) 7.8 Monocytes (%) (Auto) 2.7 Eosinophils (%) (Auto) 0.0 Basophils (%) (Auto) 0.3 Neutrophils # (Auto) 11.8 Lymphocytes # (Auto) 1.0 Monocytes # (Auto) 0.4 Eosinophils # (Auto) 0.0 Basophils # (Auto) 0.0 CBC Comment DIFF FINAL Differential Comment Blood Urea Nitrogen 37 50 Creatinine 2.35 2.19 Random Glucose 165 267 Total Protein 6.9 7.2 Albumin 3.1 3.2 Calcium Level 8.6 8.5 Alkaline Phosphatase 62 83 Aspartate Amino Transf (AST/SGOT) 26 49 Alanine Aminotransferase (ALT/SGPT) 20 36 Total Bilirubin 0.5 0.4 Sodium Level 141 142 Potassium Level 3.8 4.1 Chloride Level 111 111 Carbon Dioxide Level 17.1 16.7 Anion Gap 13 14 Estimat Glomerular Filtration Rate 20 21 Random Vancomycin Level 10.4 Blood Gas Puncture Site LT RADIAL Blood Gas Patient Temperature 98.6 Blood Gas HCO3 16 Blood Gas Base Excess -11.4 Blood Gas Oxygen Saturation 94 Arterial Blood pH 7.17 Arterial Blood Partial Pressure CO2 45 Arterial Blood Partial Pressure O2 119 Arterial Blood Oxygen Content 16.7 Arterial Blood Carboxyhemoglobin 0.0 Arterial Blood Methemoglobin 1.6 Blood Gas Hemoglobin 12.5 Oxygen Delivery Device Non-Rebreathing Mask Blood Gas Liter Flow 15 Blood Gas Inspired Oxygen 100 Phosphorus Level 4.4 Magnesium Level 2.6 Direct Bilirubin 0.2 Indirect Bilirubin 0.2 Date/Time Source Procedure Growth Status 07/05/17 07:30 Sputum Expectorated Sputum Gram Stain - Final Resulted 07/05/17 07:30 Sputum Expectorated Sputum Sputum Culture Pending Resulted 07/04/17 23:50 Urine Clean Catch Legionella Antigen - Final PRESUMPTIVE NEGATIVE FOR LEGIONELLA P... Complete 07/04/17 23:50 Urine Clean Catch Streptococcus pneumoniae Antigen (M - Final PRESUMPTIVE NEGATIVE FOR STREPTOCOCCU... Complete Result Diagram: 07/05/17 0537 07/05/17 2223 Assessment and Plan Assessment and Plan Respiratory failure -Underlying COPD -Left basal pneumonia -Empiric antibiotic -Follow-up cultures -BiPAP as needed -Pulmonary consult appreciated COPD -DuoNeb scheduled and as needed -Steroids per sales representative publications New-onset A. fib with RVR -Amiodarone for rate control -Heparin drip -Series of troponins and EKG -Cardiology consulted by primary care -pending Congestive heart failure -2D echo -Rate control for A. fib -Diuresis tolerated Chronic kidney disease -Monitor I's and O -Monitor creatinine and electrolyte DVT GI prophylaxis -Yoshi's and SCDs -Heparin drip -Pepcid Critical Care: The total critical care time was 35 minutes. Time to perform other separately billable procedures was not included in the critical care time. Andrea Otto MD Jul 05, 2017 11:57 pm
[2017-07-06] VITALS (23 sets, daily range): BP systolic 103–145; BP diastolic 62–95; PULSE 72–142; RESP 19–24; TEMP 97.1–98.7; O2SAT 90–99
[2017-07-06] MEDS ORDERED: SODIUM BICARBONATE 8.4% INJ 50 MEQ/50 ML SYR IV PUSH ONE
[2017-07-06] MEDS ORDERED: AMIODARONE INJ 450 MG in DEXTROSE 5% IN WATE(EXCEL) INJ 241 ML IV PRN ×2 (00:07)
[2017-07-06] MEDS: PIPERACILLIN/TAZ 2.25 GM VIAL 2.25 GM in SODIUM CHLORIDE 0.9% INJ 50 ML IV SCH ×4 (03:00→20:58)
[2017-07-06] MEDS ORDERED: GLUCAGON 1 MG/ML VIAL OTHER PRN (03:30)
[2017-07-06] MEDS ORDERED: DEXTROSE 50% IN WATER 50 ML VIAL(D50) IV PUSH PRN (03:30)
[2017-07-06] MEDS ORDERED: HEPARIN SODIUM - IV 10,000 UNITS/10 ML VIAL IV PUSH ONE (03:45)
[2017-07-06 05:25] LABS: HEMATOCRIT 33.7 % (35.0-46.0); HEMOGLOBIN 11.1 GM/DL (11.6-15.3); MEAN CELL VOLUME 84.9 FL (80.0-100.0); MEAN PLATELET VOLUME 8.6 FL (7.0-11.0); PLATELET COUNT 273 TH/MM3 (150-450); RED BLOOD COUNT 3.97 MIL/MM3 (4.00-5.30); RED CELL DISTRIBUTION WIDTH 15.9 % (11.6-17.2); WHITE BLOOD COUNT 20.2 TH/MM3 (4.0-11.0)
[2017-07-06 05:40] LABS: AUTOMATED NEUTROPHIL # 19.4 TH/MM3 (1.8-7.7); BASOPHIL % 0.1 % (0.0-2.0); HEMATOCRIT 33.5 % (35.0-46.0); HEMOGLOBIN 11.1 GM/DL (11.6-15.3); LYMPH % 4.1 % (9.0-44.0); LYMPHOCYTE # 0.9 TH/MM3 (1.0-4.8); MEAN CORPUSCULAR HEMOGLOBIN 28.1 PG (27.0-34.0); MEAN PLATELET VOLUME 8.5 FL (7.0-11.0); MONO % 3.9 % (0.0-8.0); MONOCYTE # 0.8 TH/MM3 (0-0.9); NEUT % 91.9 % (16.0-70.0); PLATELET COUNT 276 TH/MM3 (150-450); RED BLOOD COUNT 3.94 MIL/MM3 (4.00-5.30); RED CELL DISTRIBUTION WIDTH 15.9 % (11.6-17.2); WHITE BLOOD COUNT 21.1 TH/MM3 (4.0-11.0)
[2017-07-06 05:42] LABS: PROTHROMBIN TIME - PATIENT 10.5 SEC (9.8-11.6)
[2017-07-06] MEDS: LEVOTHYROXINE SODIUM 25 MCG TAB PO SCH (05:42)
[2017-07-06] MEDS: methylPREDNISolone SOD SUCC 40 MG/1 ML VIAL IV PUSH SCH ×5 (05:43→23:41)
[2017-07-06] MEDS: HEPARIN-D5W 25,000 U/250 ML 250 ML IV PRN (05:53)
[2017-07-06 06:13] LABS: ALBUMIN 2.8 GM/DL (3.4-5.0); ALKALINE PHOSPHATASE 67 U/L (45-117); ALT (GPT) 57 U/L (10-53); AST (GOT) 59 U/L (15-37); BICARBONATE 20.8 MEQ/L (21.0-32.0); BLOOD UREA NITROGEN 53 MG/DL (7-18); CALCIUM 8.2 MG/DL (8.5-10.1); CHLORIDE 112 MEQ/L (98-107); CREATININE 2.15 MG/DL (0.50-1.00); FREE T4 1.08 NG/DL (0.76-1.46); GLOMERULAR FILTRATION RATE 22 ML/MIN (>89); GLUCOSE,RANDOM 157 MG/DL (74-106); MAGNESIUM 2.4 MG/DL (1.5-2.5); PHOSPHORUS 3.9 MG/DL (2.5-4.9); RANDOM VANCOMYCIN 24.8 COMMENT; SODIUM (NA) 144 MEQ/L (136-145); TOTAL BILIRUBIN ADULT 0.5 MG/DL (0.2-1.0); TOTAL PROTEIN 6.3 GM/DL (6.4-8.2); TROPONIN I 0.25 NG/ML (0.02-0.05)
[2017-07-06] MEDS: RESP: ALBUTEROL 2.5 MG/IPRATROPIUM 0.5 MG NEB (SCH) NEB ×4 (07:52→20:14)
[2017-07-06] MEDS: INSULIN ASPART SUPPLEMENTAL SCALE SQ SCH ×4 (08:00→21:15)
--- NOTE | 2017-07-06 08:07 | MB ---
cc: Cecelia Buatista MD DATE: 07/06/2017 REASON FOR CONSULTATION: Wide complex tachycardia. HISTORY OF PRESENT ILLNESS: Ms. Treviño is an 86-year-old female who does have a history of a left bundle branch block and cardiomyopathy. She presented on the with progressive shortness of breath. The patient did also have a low-grade fever and was reportedly on antibiotics for a UTI. She was subsequently admitted with COPD, CHF and subsequently went into respiratory failure secondary to left basilar pneumonia. Last night she went into atrial fibrillation with rapid ventricular rate and cardiology was consulted for evaluation and management of this. The patient does continue to have some shortness of breath this morning. ALLERGIES: LASIX, LEVAQUIN AND MORPHINE. CURRENT MEDICATIONS: Per the record. PAST MEDICAL HISTORY: Significant for the new atrial fibrillation, moderate aortic regurgitation, breast cancer, cardiomyopathy with an EF of 30% to 35% in 05/2016, carotid artery stenosis, CKD stage IV, COPD, CHF, left bundle branch block. FAMILY HISTORY: Noncontributory. REVIEW OF SYSTEMS: Except as mentioned in the HPI, all 12 systems are negative. PHYSICAL EXAMINATION: VITAL SIGNS: 130, 101/72, with a respiratory rate of 20. GENERAL: She is an overweight female who is in no apparent distress. NECK: Free from JVD. LUNGS: Scattered wheezing. CARDIOVASCULAR EXAMINATION: She has an irregularly irregular tachycardic rhythm. No rubs or gallops were appreciated. There is a 2/6 systolic and diastolic murmur. ABDOMEN: Soft. EXTREMITIES: Free from edema. LABORATORY DATA: Significant for a white count of 21, her creatinine is 2.15, troponin is 0.25, her blood gas does show the lowest pO2 of 57 with a pH of 7.54. Telemetry shows atrial fibrillation with episodes of rapid ventricular rate. IMPRESSIONS: New onset atrial fibrillation - The patient has poor rate control despite the amiodarone. I will go ahead and add low-dose beta alvino to assist in rate control given her cardiomyopathy. I do agree with continuing the amiodarone. Her CHADS-VASc score is high enough that anticoagulation is indicated. She is currently on IV heparin. This should be continued. History of cardiomyopathy - We will get an echo once her heart rate is stabilized. Pneumonia - This will be per the primary team. MD DORITA See/ARIEL , 07:51 AM , 08:06 AM
[2017-07-06] MEDS: GABAPENTIN 100 MG CAP PO SCH ×2 (08:12→20:57)
[2017-07-06] MEDS: CARVEDILOL 3.125 MG TAB PO SCH (08:12)
[2017-07-06] MEDS: PANTOPRAZOLE SOD 20 MG DELAYED RELEASE TAB PO SCH (08:12)
[2017-07-06] MEDS: guaiFENesin E.R. 600 MG TAB PO SCH ×2 (08:12→20:57)
[2017-07-06] MEDS: ASPIRIN EC 81 MG TABEC PO SCH (08:12)
[2017-07-06] MEDS: DOCUSATE SODIUM 50 MG/SENNA 8.6 MG TAB PO SCH ×3 (08:12→21:00)
[2017-07-06] MEDS: BUDESONIDE-FORMOTEROL 160/4.5 MCG INHALER INH SCH ×2 (08:13→20:58)
[2017-07-06] MEDS: SODIUM CHLORIDE 0.9% FLUSH 10 ML FLUSH IV FLUSH SCH ×2 (08:13→20:57)
--- NOTE | 2017-07-06 08:56 | HHI.CCPN ---
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 Patient told me she was on antibiotic for UTI. Currently patient on nasal cannula awake alert denied diarrhea, she denied dysuria urgency or frequency however she was diagnosed with UTI and was given antibiotic. In ED chest x-ray showed bibasilar airspace disease patient was started on a dose of antibiotic with breathing treatment and oxygen, lactic acid was 2.3 SUBJ 07/06: Patient remains slightly tachypneic with bilateral wheezing but oxygenation has slightly improved transition from partial nonrebreather to 6 L nasal cannula. Continues to have bilateral expiratory wheezing. Will give additional 2 mg IV Bumex now. Diaz for accurate intake output. Continue IV steroids and DuoNeb, Symbicort and add Spiriva Objective Vital Signs Date Time Temp Pulse Resp B/P (MAP) Pulse Ox O2 Delivery O2 Flow Rate FiO2 07/06/17 08:08 93 Nasal Cannula 6.00 07/06/17 06:00 114 07/06/17 04:25 50 07/06/17 04:00 97.2 22 134/95 (108) Intake and Output 07/06/17 07/06/17 07/07/17 08:00 16:00 00:00 Intake Total 170 ml Output Total 200 ml Balance -30 ml Result Diagram: 07/06/17 0509 07/06/17 0509 Other Results Microbiology Date/Time Source Procedure Growth Status 07/04/17 23:50 Urine Clean Catch Legionella Antigen - Final PRESUMPTIVE NEGATIVE FOR LEGIONELLA P... Complete 07/04/17 23:50 Urine Clean Catch Streptococcus pneumoniae Antigen (M - Final PRESUMPTIVE NEGATIVE FOR STREPTOCOCCU... Complete Laboratory Tests Test 07/05/17 22:05 07/06/17 04:07 Blood Gas Puncture Site LT RADIAL LT RADIAL Blood Gas Patient Temperature 98.6 98.6 Blood Gas HCO3 16 mmol/L (22-26) 21 mmol/L (22-26) Blood Gas Base Excess -11.4 mmol/L (-2-2) -2.7 mmol/L (-2-2) Blood Gas Oxygen Saturation 94 % (90-100) 91 % (90-100) Arterial Blood pH 7.17 (7.380-7.420) 7.44 (7.380-7.420) Arterial Blood Partial Pressure CO2 45 mmHg (38-42) 32 mmHg (38-42) Arterial Blood Partial Pressure O2 119 mmHg (61-120) 67 mmHg (61-120) Arterial Blood Oxygen Content 16.7 Vol % (12.0-20.0) 14.2 Vol % (12.0-20.0) Arterial Blood Carboxyhemoglobin 0.0 % (0-4) 0.0 % (0-4) Arterial Blood Methemoglobin 1.6 % (0-2) 0.7 % (0-2) Blood Gas Hemoglobin 12.5 G/DL (12.0-16.0) 11.1 G/DL (12.0-16.0) Oxygen Delivery Device Non-Rebreathing Mask BIPAP Blood Gas Liter Flow 15 L/M Blood Gas Inspired Oxygen 100 % 50 % Blood Gas Ventilator Setting [id number]/[id number] Objective Remarks GENERAL: This is a well-nourished, well-developed elderly female on pNRB now transitioned to 6L NC. Appears critical SKIN: No rashes, warm and dry HEAD: Atraumatic. Normocephalic. EYES: Pupils equal round and reactive. Extraocular motions intact ENT: Nose without bleeding, or drainage, Airway patent. NECK: Trachea midline. Supple CARDIOVASCULAR: Irregular rate and rhythm 2 out of 6 systolic murmur RESPIRATORY: Diminished breath sounds bibasilar with bibasilar crackles. Bilateral expiratory wheezes anteriorly GASTROINTESTINAL: Abdomen soft, non-tender, nondistended. Positive bowel sounds MUSCULOSKELETAL: Extremities without clubbing, cyanosis, or edema. Pedal pulses appreciated NEUROLOGICAL: Awake and alert. Moves all extremity. Normal speech. No focal neurological deficit Urinary Catheter: Yes Assessment to: Continue A/P Assessment and Plan Acute hypoxemic respiratory failure Bibasilar pneumonia -Underlying COPD, basilar pneumonia -Empiric antibiotic with Zosyn and vancomycin -Follow-up cultures, check for influenza -BiPAP as needed -Pulmonary consult appreciated Acute COPD exacerbation -DuoNeb scheduled and as needed -IV Solu-Medrol 60 every 6 hours -Add Symbicort and Spiriva New-onset A. fib with RVR -Amiodarone for rate control -Heparin drip -Series of troponins and EKG -Cardiology consulted. Dr. Bautista has added Coreg Congestive heart failure, acute systolic heart failure exacerbation Cardiomyopathy ejection fraction 35% -2D echo -Rate control for A. fib -Diuresis tolerated. Give Bumex 2 mg IV x1 now Severe sepsis -Continue Zosyn, vancomycin -Follow up on cultures, check influenza Chronic kidney disease -Monitor I's and O -Monitor creatinine and electrolyte -Diuresis as above DVT GI prophylaxis -Yoshi's and SCDs -Heparin drip -Pepcid Critical Care: The total critical care time was 35 minutes. Time to perform other separately billable procedures was not included in the critical care time. Roxana Barber MD Jul 06, 2017 08:56
[2017-07-06] MEDS ORDERED: BUMETANIDE 1 MG/4 ML IV PUSH ONE (09:00)
[2017-07-06] MEDS: AMIODARONE INJ 450 MG in SODIUM CHLOR 0.9% (EXCEL) INJ 241 ML IV PRN (09:10)
[2017-07-06] MEDS: TIOTROPIUM BROMIDE 18 MCG INH INH SCH (09:33)
[2017-07-06] MEDS ORDERED: HEPARIN SODIUM - IV 10,000 UNITS/10 ML VIAL IV PUSH PRN ×2 (09:45)
[2017-07-06 11:21] LABS: BILIRUBIN, URINE NEG (NEG); BLOOD, URINE SMALL (NEG); GLUCOSE,URINE NEG (NEG); HYALINE CAST, URINE 2 /lpf (RARE); KETONE, URINE NEG (NEG); MUCUS URINE FEW /lpf (OCC); NITRITE,URINE NEG (NEG); PH, URINE 5.5 (5.0-8.5); URINE COLOR LIGHT-YELLOW (YELLW/STRAW); URINE LEUKOCYTE ESTERASE NEG (NEG)
[2017-07-06 17:12] LABS: HEMOGLOBIN A1C 5.7 % (4.3-6.0)
[2017-07-06 17:41] LABS: ALBUMIN 2.9 GM/DL (3.4-5.0); AST (GOT) 42 U/L (15-37); BICARBONATE 21.9 MEQ/L (21.0-32.0); BLOOD UREA NITROGEN 59 MG/DL (7-18); CALCIUM 8.3 MG/DL (8.5-10.1); CHLORIDE 108 MEQ/L (98-107); CREATININE 2.38 MG/DL (0.50-1.00); GLOMERULAR FILTRATION RATE 19 ML/MIN (>89); GLUCOSE,RANDOM 192 MG/DL (74-106); MAGNESIUM 2.2 MG/DL (1.5-2.5); SODIUM (NA) 144 MEQ/L (136-145)
[2017-07-06 17:42] LABS: ALT (GPT) 52 U/L (10-53); PHOSPHORUS 4.5 MG/DL (2.5-4.9)
[2017-07-06 17:44] LABS: ALKALINE PHOSPHATASE 66 U/L (45-117); TOTAL BILIRUBIN ADULT 0.5 MG/DL (0.2-1.0); TOTAL PROTEIN 6.5 GM/DL (6.4-8.2)
--- NOTE | 2017-07-06 18:46 | ECHRPT ---
Indication: Cardiomyopathy CONCLUSIONS The left ventricular systolic function is severely reduced with an estimated ejection fraction in th e range of 25-30%. There is diffuse global hypokinesis with distinct regional wall motion abnormalities. Nonobstructive prominent basal hypertrophy is present consistent with sigmoid septum. Normal left ventricular size. The left atrial size is [id number]-[id number] dilated. Mitral annular calcification is present. Thickened subvalvular mitral valve apparatus. Calcification of both mitral valve leaflets. Mild mitral valve stenosis. Mitral valve mean gradient is 4.5 mmHg. The mitral valve area by Pressure Halftime Method is 2.16 cm. Moderate mitral valve regurgitation. Diffuse calcification of the aortic valve. Aortic valve sclerosis is present. Moderate aortic valve regurgitation. There is moderate tricuspid regurgitation. The estimated pulmonary arterial pressure is 51.2 mmHg. Trivial pulmonary valve regurgitation. BP: 114 / 64 HR: 80 Rhythm: MEASUREMENTS (Male / Female) Normal Values Technical Quality:Fair 2D ECHO LV Diastolic Diameter PLAX 5.1 cm 4.2 - 5.9 / 3.9 - 5.3 cm LV Systolic Diameter PLAX 4.5 cm IVS Diastolic Thickness 1.5 cm 0.6 - 1.0 / 0.6 - 0.9 cm LVPW Diastolic Thickness 1.1 cm 0.6 - 1.0 / 0.6 - 0.9 cm LV Relative Wall Thickness 0.5 RV Internal Dim ED PLAX 3.1 cm LVOT Diameter 1.9 cm LA Systolic Diameter LX 4.7 cm 3.0 - 4.0 / 2.7 - 3.8 cm LA Volume Index 45.9 cm/m 16 - 28 cm/m M-MODE Aortic Root Diameter MM 2.6 cm LA Systolic Diameter MM 4.0 cm LA Ao Ratio MM 1.5 AV Cusp Separation MM 1.4 cm DOPPLER AV Peak Velocity 240.0 cm/s AV Peak Gradient 23.0 mmHg AV Mean Gradient 11.0 mmHg AV Velocity Time Integral 52.7 cm AI Peak Velocity 461.0 cm/s AI Peak Gradient 85.0 mmHg AI Pressure Half Time 387.0 ms LVOT Peak Velocity 101.0 cm/s LVOT Peak Gradient 4.1 mmHg LVOT Velocity Time Integral 21.4 cm LVOT Cardiac Index 2748.1 cm/minm AV Area Cont Eq vti 1.2 cm AV Area Cont Eq pk 1.2 cm MV Peak Velocity 154.0 cm/s MV Peak Gradient 9.5 mmHg MV Mean Velocity 106.1 cm/s MV Mean Gradient 4.5 mmHg MV Area PHT 2.2 cm Mitral E Point Velocity 139.0 cm/s Mitral A Point Velocity 96.7 cm/s Mitral E to A Ratio 1.4 LV E' Lateral Velocity 6.0 cm/s Mitral E to LV E' Lateral Ratio 23.1 LV E' Septal Velocity 3.5 cm/s Mitral E to LV E' Septal Ratio 39.9 TR Peak Velocity 321.0 cm/s TR Peak Gradient 41.2 mmHg Right Atrial Pressure 10.0 mmHg Pulmonary Artery Systolic Pressu 51.2 mmHg Right Ventricular Systolic Press 51.2 mmHg FINDINGS LEFT VENTRICLE The left ventricular systolic function is severely reduced with an estimated ejection fraction in th e range of 25-30%. There is diffuse global hypokinesis with distinct regional wall motion abnormalities. Nonobstructive prominent basal hypertrophy is present consistent with sigmoid septum. Normal left ventricular size. RIGHT VENTRICLE Normal right ventricular size and systolic function. LEFT ATRIUM The left atrial size is gvvg-qt-yujtnyratd dilated. RIGHT ATRIUM The right atrial size is normal. ATRIAL SEPTUM Normal atrial septal thickness without atrial level shunting by limited color doppler interrogation. AORTA The aortic root and proximal ascending aorta are normal in size on limited imaging. MITRAL VALVE Mitral annular calcification is present. Thickened subvalvular mitral valve apparatus. Calcification of both mitral valve leaflets. Mild mitral valve stenosis. Mitral valve mean gradient is 4.5 mmHg. The mitral valve area by Pressure Halftime Method is 2.16 cm. Moderate mitral valve regurgitation. AORTIC VALVE Trileaflet aortic valve. Diffuse calcification of the aortic valve. Aortic valve sclerosis is present. Moderate aortic valve regurgitation. TRICUSPID VALVE Structurally normal tricuspid valve. There is moderate tricuspid regurgitation. The estimated pulmonary arterial pressure is 51.2 mmHg. PULMONARY VALVE Trivial pulmonary valve regurgitation. VESSELS The inferior vena cava is normal in size. PERICARDIUM No pericardial effusion. Toney Palma MD, FACC, [facility] [place] (Electronically Signed) Final Date:06 July 2017 18:45
--- NOTE | 2017-07-06 20:37 | HHI.PR ---
Subjective Remarks 86 YOWF with COPD,Left basal infilt, CKD Breathing better Up in chair Mild congestion tr to ISC halicat AF with RVR On Amiodarone and Heparin drip Objective Vital Signs Vital Signs Date Time Temp Pulse Resp B/P (MAP) Pulse Ox O2 Delivery O2 Flow Rate FiO2 07/06/17 20:15 93 Nasal Cannula 4.00 07/06/17 18:00 72 07/06/17 16:00 79 07/06/17 16:00 98.2 79 20 145/67 (93) 90 07/06/17 15:30 98 Nasal Cannula 4.00 07/06/17 14:00 72 07/06/17 12:00 98.5 75 22 133/62 (85) 93 07/06/17 12:00 75 07/06/17 11:00 72 07/06/17 10:00 72 07/06/17 09:10 74 120/68 07/06/17 08:08 93 Nasal Cannula 6.00 07/06/17 08:00 98.7 76 20 136/73 (94) 95 07/06/17 08:00 76 07/06/17 08:00 94 Nasal Cannula 6.00 07/06/17 07:00 95 Partial Non-Rebreather 07/06/17 06:00 114 07/06/17 05:00 108 07/06/17 04:54 96 Partial Rebreather 8.00 07/06/17 04:25 92 Venturi Mask 6.00 50 07/06/17 04:00 97.2 118 22 134/95 (108) 96 07/06/17 04:00 118 07/06/17 03:00 122 07/06/17 02:22 99 60 07/06/17 02:00 128 07/06/17 01:00 130 07/06/17 00:24 136 101/72 07/06/17 00:00 97.1 142 24 103/64 (77) 91 07/06/17 00:00 140 07/05/17 23:23 152 25 133/83 (100) 93 07/05/17 23:17 93 50 07/05/17 23:00 132 07/05/17 23:00 91 15.00 100 07/05/17 22:50 132 24 148/76 (100) 92 07/05/17 22:25 89 28 149/86 (107) 92 07/05/17 22:12 98 65 07/05/17 22:10 150 28 174/113 (133) 92 07/05/17 22:05 100 65 07/05/17 22:04 155 28 174/114 (134) 86 07/05/17 22:00 155 07/05/17 21:00 118 I/O 07/05/17 07/05/17 07/05/17 07/06/17 07/06/17 07/06/17 07:00 15:00 23:00 07:00 15:00 23:00 Intake Total 940 ml 1355 ml 220 ml 300 ml 290 ml Output Total 600 ml 1320 ml 200 ml 2100 ml Balance 340 ml 35 ml 20 ml 300 ml -1810 ml Intake Oral 240 ml 840 ml 120 ml 240 ml IV Total 700 ml 515 ml 100 ml 300 ml 50 ml Output Urine Total 600 ml 1320 ml 200 ml 2100 ml # Voids 2 # Bowel Movements 1 3 0 Result Diagram: 07/06/17 0509 07/06/17 1554 Objective Remarks GENERAL: MBMN WF, mild sob SKIN: Warm and dry. HEAD: Normocephalic. EYES: No scleral icterus. No injection or drainage. NECK: Supple, trachea midline. No JVD or lymphadenopathy. CARDIOVASCULAR: Regular rate and rhythm without murmurs, gallops, or rubs. RESPIRATORY: Breath sounds equal bilaterally. No accessory muscle use. GASTROINTESTINAL: Abdomen soft, non-tender, nondistended. MUSCULOSKELETAL: No cyanosis, or edema. BACK: Nontender without obvious deformity. No CVA tenderness. A/P Assessment and Plan IMPRESSION: 1. Left basal pneumonia. 2. Nodular infiltrate. 3. Chronic obstructive pulmonary disease, mild exacerbation. 4. Congestive heart failure. 5. Chronic kidney disease PLAN: Aerosol nebs Cont Abx Solumedrol 40 mg q 6 hrs monitor renal functions Amiodarone and Heparin Filipe Albarran MD Jul 06, 2017 20:37
[2017-07-06] MEDS: PRAVASTATIN SOD 80 MG TAB PO SCH (20:57)
[2017-07-06] MEDS ORDERED: METOPROLOL TARTRATE 25 MG TAB PO SCH (21:00)
--- NOTE | 2017-07-06 21:48 | EKG ---
Date Performed: 07/05/2017 Time Performed: 22:05:38 PTAGE: 86 years EKG: Atrial fibrillation with uncontrolled ventricular response. Left axis deviation Left bundle branch block Abnormal ECG PREVIOUS TRACING : 07/04/2017 19.56 Since the previous tracing, no significant change noted DOCTOR: Logan Pierre Interpretating Date/Time 07/06/2017 21:47:31
[2017-07-07] VITALS (15 sets, daily range): BP systolic 136–217; BP diastolic 68–93; PULSE 54–82; RESP 16–24; TEMP 97.4–98.6; O2SAT 93–100
[2017-07-07] MEDS: AMIODARONE INJ 450 MG in SODIUM CHLOR 0.9% (EXCEL) INJ 241 ML IV PRN (00:23)
[2017-07-07] MEDS: PIPERACILLIN/TAZ 2.25 GM VIAL 2.25 GM in SODIUM CHLORIDE 0.9% INJ 50 ML IV SCH ×3 (03:22→14:42)
[2017-07-07] MEDS: LEVOTHYROXINE SODIUM 25 MCG TAB PO SCH (05:41)
[2017-07-07] MEDS: methylPREDNISolone SOD SUCC 40 MG/1 ML VIAL IV PUSH SCH ×3 (05:41→22:26)
--- NOTE | 2017-07-07 06:21 | RADRPT ---
EXAM DATE/TIME: 07/07/2017 04:49 [place] COMPARISON: CHEST SINGLE AP, July 05, 2017, 22:47. INDICATIONS : Shortness of breath MEDICAL HISTORY : Cardiovascular disease. Chronic obstructive pulmonary disease. Congestive heart failure. Emphysema. B reast cancer. Cervical cancer. SURGICAL HISTORY : Hysterectomy. Right lumpectomy, mastectomy ENCOUNTER: Subsequent ACUITY: 2 days PAIN SCORE: 0/10 LOCATION: Bilateral chest FINDINGS: A single view of the chest demonstrates a interstitial and alveolar opacity throughout the right lung . Heart enlarged. Atherosclerotic changes of the aorta. Osseous structures are intact. Clips in the right breast. CONCLUSION: Interstitial and alveolar densities throughout the right lung. Hemant Irby MD on July 07, 2017 at 6:19 Board Certified Radiologist. This report was verified electronically.
[2017-07-07] MEDS: RESP: ALBUTEROL 2.5 MG/IPRATROPIUM 0.5 MG NEB (SCH) NEB ×2 (07:21→07:55)
--- NOTE | 2017-07-07 07:26 | PD.CARD.PN ---
Subjective Subjective Remarks Pt reports feeling better Objective Medications Current Medications Medications (Trade) Dose Ordered Sig/Philomena Route Start Time Stop Time Status Last Admin (SoluMEDROL INJ) 40 mg Q6HR IV PUSH 07/04/17 12:00 07/07/17 05:41 (Duoneb Neb) 1 ampule Q2HR NEB PRN NEB 07/04/17 06:15 (NS Flush) 2 ml UNSCH PRN IV FLUSH 07/04/17 06:15 (NS Flush) 2 ml BID IV FLUSH 07/04/17 09:00 07/06/17 20:57 (Zofran Inj) 4 mg Q6H PRN IVP 07/04/17 06:15 (Tylenol) 650 mg Q6H PRN PO 07/04/17 06:15 ([place] 5-325 Mg) 1 tab Q4H PRN PO 07/04/17 06:15 ([place] 10-325 Mg) 1 tab Q4H PRN PO 07/04/17 06:15 (Shirley-Colace) 1 tab BID PO 07/04/17 09:00 07/06/17 08:12 (Milk Of Magnesia Liq) 30 ml Q12H PRN PO 07/04/17 06:15 (Senokot) 17.2 mg Q12H PRN PO 07/04/17 06:15 (Dulcolax Supp) 10 mg DAILY PRN RECTAL 07/04/17 06:15 (Lactulose Liq) 30 ml DAILY PRN PO 07/04/17 06:15 (Ecotrin Ec) 81 mg DAILY PO 07/04/17 09:00 07/06/17 08:12 (Neurontin) 100 mg BID PO 07/04/17 09:00 07/06/17 20:57 (Synthroid) 25 mcg DAILY@0600 PO 07/04/17 07:00 07/07/17 05:41 (Protonix) 20 mg DAILY PO 07/04/17 09:00 07/06/17 08:12 (Pravachol) 80 mg HS PO 07/04/17 21:00 07/06/17 20:57 (Catapres) 0.1 mg Q6H PRN PO 07/04/17 10:45 Pharmacy Profile Note 0 ml @ 0 mls/hr UNSCH OTHER 07/04/17 12:15 Piperacillin Sod/ Tazobactam Sod 2.25 gm/Sodium Chloride 50 ml @ 100 mls/hr Q6H IV 07/05/17 09:00 07/07/17 03:22 (Mucinex Er) 600 mg BID PO 07/05/17 21:00 07/06/17 20:57 (Symbicort 160-4.5 Mcg Inh) 1 puff Q12HR INH 07/05/17 21:00 07/06/17 20:58 Amiodarone HCl 450 mg/Sodium Chloride 250 ml @ 33.33 mls/ hr Q7H31M PRN IV 07/06/17 00:15 07/07/17 00:23 (D50w (Vial) Inj) 50 ml UNSCH PRN IV PUSH 07/06/17 03:30 (Glucagon Inj) 1 mg UNSCH PRN OTHER 07/06/17 03:30 (NovoLOG SUPPLEMENTAL SCALE) 1 ACHS SLIDING SCALE SQ 07/06/17 08:00 07/06/17 21:15 (Heparin Inj) 5,000 units UNSCH PRN IV PUSH 07/06/17 09:45 (Heparin Inj) 2,500 units UNSCH PRN IV PUSH 07/06/17 09:45 Heparin Sodium/ Dextrose 250 ml @ 8 mls/hr TITRATE PRN IV 07/06/17 03:45 07/06/17 05:53 (Spiriva Inh) 18 mcg DAILY INH 07/06/17 09:15 07/06/17 09:33 (Lopressor) 25 mg Q12HR PO 07/06/17 21:00 07/06/17 20:57 (Duoneb Neb) 1 ampule Q6HR NEB NEB 07/07/17 08:00 Vital Signs / I&O Vital Signs Date Time Temp Pulse Resp B/P (MAP) Pulse Ox O2 Delivery O2 Flow Rate FiO2 07/07/17 06:00 68 07/07/17 04:00 98.2 70 24 144/79 (100) 100 07/07/17 04:00 70 07/07/17 03:56 96 Partial Rebreather 10.00 07/07/17 02:00 66 07/07/17 00:23 66 146/78 07/07/17 00:00 97.4 70 21 146/78 (100) 100 07/07/17 00:00 70 07/06/17 23:39 99 Partial Rebreather 10.00 07/06/17 22:00 86 07/06/17 20:15 93 Nasal Cannula 4.00 07/06/17 20:00 80 07/06/17 20:00 97.7 80 19 139/67 (91) 91 07/06/17 19:00 89 Nasal Cannula 6.00 07/06/17 18:00 72 07/06/17 16:00 79 07/06/17 16:00 98.2 79 20 145/67 (93) 90 07/06/17 15:30 98 Nasal Cannula 4.00 07/06/17 14:00 72 07/06/17 12:00 98.5 75 22 133/62 (85) 93 07/06/17 12:00 75 07/06/17 11:00 72 07/06/17 10:00 72 07/06/17 09:10 74 120/68 07/06/17 08:08 93 Nasal Cannula 6.00 07/06/17 08:00 98.7 76 20 136/73 (94) 95 07/06/17 08:00 76 07/06/17 08:00 94 Nasal Cannula 6.00 I/O 07/06/17 07/06/17 07/06/17 07/07/17 07/07/17 07/07/17 07:00 15:00 23:00 07:00 15:00 23:00 Intake Total 220 ml 300 ml 290 ml 600 ml Output Total 200 ml 2100 ml 650 ml Balance 20 ml 300 ml -1810 ml -50 ml Intake Oral 120 ml 240 ml 600 ml IV Total 100 ml 300 ml 50 ml Output Urine Total 200 ml 2100 ml 650 ml # Voids 2 # Bowel Movements 0 0 Physical Exam GENERAL: Well developed, well nourished. No acute distress. HEENT: Jugular venous pressure is normal. CHEST: Lungs decreased and clear to auscultation bilaterally. Unlabored respiratory effort. CARDIAC: Regular rate and rhythm without S3, S4, or murmur. ABDOMEN: Soft, nontender, EXTREMITIES: No clubbing, cyanosis, or edema. Laboratory Laboratory Tests Test 07/06/17 09:35 07/06/17 11:57 07/06/17 13:36 07/06/17 15:54 Urine Color LIGHT-YELLOW Urine Turbidity CLEAR Urine pH 5.5 Urine Specific [place] 1.015 Urine Protein TRACE mg/dL Urine Glucose (UA) NEG mg/dL Urine Ketones NEG mg/dL Urine Occult Blood SMALL Urine Nitrite NEG Urine Bilirubin NEG Urine Urobilinogen LESS THAN 2.0 MG/DL Urine Leukocyte Esterase NEG Urine RBC 1 /hpf Urine WBC 1 /hpf Urine Hyaline Casts 2 /lpf Urine Mucus FEW /lpf Microscopic Urinalysis Comment CATH-CULT NOT IND Lactic Acid Level 2.5 mmol/L Activated Partial Thromboplast Time 49.1 SEC Blood Urea Nitrogen 59 MG/DL Creatinine 2.38 MG/DL Random Glucose 192 MG/DL Total Protein 6.5 GM/DL Albumin 2.9 GM/DL Calcium Level 8.3 MG/DL Phosphorus Level 4.5 MG/DL Magnesium Level 2.2 MG/DL Alkaline Phosphatase 66 U/L Aspartate Amino Transf (AST/SGOT) 42 U/L Alanine Aminotransferase (ALT/SGPT) 52 U/L Total Bilirubin 0.5 MG/DL Sodium Level 144 MEQ/L Potassium Level 3.5 MEQ/L Chloride Level 108 MEQ/L Carbon Dioxide Level 21.9 MEQ/L Anion Gap 14 MEQ/L Estimat Glomerular Filtration Rate 19 ML/MIN Test 07/06/17 20:37 07/07/17 06:02 Activated Partial Thromboplast Time 42.0 SEC Imaging Last 24 hours Impressions Chest X-Ray 07/07/17 0600 Signed Impressions: Service Date/Time: June 04:49 - CONCLUSION: Interstitial and alveolar densities throughout the right lung. Hemant Irby MD Assessment and Plan Assessment and Plan AF- back in NSR, d/c amio -continue BB -CHADS VASC-at least 4---coumadin vs AGUILAR discussed she wants eliquis or xarelto, consider tomorrow Cardiomyopathy EF 30-35% - check ECHO on BB -no HUGO with elevated Cr Pneumonia- per [facility] Cecelia Bautista MD Jul 07, 2017 07:26
[2017-07-07 07:33] LABS: BASOPHIL % 0.1 % (0.0-2.0); HEMATOCRIT 32.3 % (35.0-46.0); HEMOGLOBIN 10.6 GM/DL (11.6-15.3); LYMPH % 3.8 % (9.0-44.0); LYMPHOCYTE # 0.6 TH/MM3 (1.0-4.8); MEAN CELL VOLUME 85.2 FL (80.0-100.0); MEAN CORPUSCULAR HEMOGLOBIN 27.9 PG (27.0-34.0); MEAN CORPUSCULAR HGB CONC 32.8 % (32.0-36.0); MEAN PLATELET VOLUME 8.6 FL (7.0-11.0); MONO % 2.5 % (0.0-8.0); MONOCYTE # 0.4 TH/MM3 (0-0.9); NEUT % 93.6 % (16.0-70.0); PLATELET COUNT 251 TH/MM3 (150-450); RED BLOOD COUNT 3.79 MIL/MM3 (4.00-5.30); RED CELL DISTRIBUTION WIDTH 15.7 % (11.6-17.2)
[2017-07-07 07:42] LABS: ALBUMIN 2.7 GM/DL (3.4-5.0); AST (GOT) 50 U/L (15-37); BICARBONATE 24.9 MEQ/L (21.0-32.0); BLOOD UREA NITROGEN 63 MG/DL (7-18); CALCIUM 8.1 MG/DL (8.5-10.1); CHLORIDE 109 MEQ/L (98-107); CREATININE 2.45 MG/DL (0.50-1.00); GLOMERULAR FILTRATION RATE 19 ML/MIN (>89); GLUCOSE,RANDOM 154 MG/DL (74-106); MAGNESIUM 2.5 MG/DL (1.5-2.5); SODIUM (NA) 143 MEQ/L (136-145)
[2017-07-07 07:43] LABS: ALT (GPT) 57 U/L (10-53)
[2017-07-07 07:55] LABS: ALKALINE PHOSPHATASE 69 U/L (45-117); RANDOM VANCOMYCIN 16.4 COMMENT; TOTAL BILIRUBIN ADULT 0.5 MG/DL (0.2-1.0); TOTAL PROTEIN 6.2 GM/DL (6.4-8.2)
[2017-07-07] MEDS: INSULIN ASPART SUPPLEMENTAL SCALE SQ SCH (08:00)
--- NOTE | 2017-07-07 08:07 | HHI.CCPN ---
Subjective Remarks/Hospital Course 86 years old female with history of COPD chronic kidney disease hypertension presented to the ED with a complaint of worsening shortness of breath started director of early childhood 07/04/17, with dry cough, low-grade fever, no chest pain, patient reported having flulike syndrome few days ago prior to that. Patient told me she was on antibiotic for UTI. Currently patient on nasal cannula awake alert denied diarrhea, she denied dysuria urgency or frequency however she was diagnosed with UTI and was given antibiotic. In ED chest x-ray showed bibasilar airspace disease patient was started on a dose of antibiotic with breathing treatment and oxygen, lactic acid was 2.3 SUBJ 07/06: Patient remains slightly tachypneic with bilateral wheezing but oxygenation has slightly improved transition from partial nonrebreather to 6 L nasal cannula. Continues to have bilateral expiratory wheezing. Will give additional 2 mg IV Bumex now. Diaz for accurate intake output. Continue IV steroids and DuoNeb, Symbicort and add Spiriva 07/07: Breathing comfortably on nasal cannula now was on partial nonrebreather overnight. Urine output 2.75 L in 24 hours. Chest x-ray shows improving bilateral interstitial and alveolar infiltrates. Will give additional dose of Bumex today 1 mg, consult nephrology. DC Amiodarone, increase metoprolol to 50 mg PO q8h. Continue IV Heparin, Dr. Bautista will transition to Eliquis when appropriate Objective Vital Signs Date Time Temp Pulse Resp B/P (MAP) Pulse Ox O2 Delivery O2 Flow Rate FiO2 07/07/17 06:00 68 07/07/17 04:00 98.2 24 144/79 (100) 100 07/07/17 03:56 Partial Rebreather 10.00 07/06/17 04:25 50 Intake and Output 07/07/17 07/07/17 07/08/17 08:00 16:00 00:00 Intake Total 600 ml Output Total 650 ml Balance -50 ml Result Diagram: 07/07/17 0607/07/17601 Other Results Microbiology Date/Time Source Procedure Growth Status 07/06/17 09:35 Nasal Aspirate Influenza Types A,B Antigen (ROGER) - Final NEGATIVE FOR FLU A AND B ANTIGEN.... Complete 07/04/17 23:50 Urine Clean Catch Legionella Antigen - Final PRESUMPTIVE NEGATIVE FOR LEGIONELLA P... Complete 07/04/17 23:50 Urine Clean Catch Streptococcus pneumoniae Antigen (M - Final PRESUMPTIVE NEGATIVE FOR STREPTOCOCCU... Complete Objective Remarks GENERAL: This is a well-nourished, well-developed elderly female on NC. Breathing more comfortably today SKIN: No rashes, warm and dry HEAD: Atraumatic. Normocephalic. EYES: Pupils equal round and reactive. Extraocular motions intact ENT: Nose without bleeding, or drainage, Airway patent. NECK: Trachea midline. Supple CARDIOVASCULAR: NSR now 2 out of 6 systolic murmur RESPIRATORY: Diminished breath sounds bibasilar few bibasilar crackles. Mild expiratory wheezes anteriorly GASTROINTESTINAL: Abdomen soft, non-tender, nondistended. Positive bowel sounds MUSCULOSKELETAL: Extremities without clubbing, cyanosis, or edema. Pedal pulses appreciated NEUROLOGICAL: Awake and alert. Moves all extremity. Normal speech. No focal neurological deficit A/P Assessment and Plan Acute hypoxemic respiratory failure Bibasilar pneumonia -Underlying COPD, basilar pneumonia -Empiric antibiotic with Zosyn and vancomycin-DC Vanc today -Follow-up cultures, influenza negative -BiPAP as needed, Pulmonary consult appreciated Acute COPD exacerbation -DuoNeb scheduled and as needed -IV Solu-Medrol 40 every 6 hours, reduce to 40 q8 -Continue Symbicort and Spiriva New-onset A. fib with RVR -Amiodarone for rate control-DC today -Increase metoprolol to 50 every 8 -Heparin drip-transition to Eliquis versus Coumadin-deferred to Dr. Yeboah -Series of troponins and EKG as needed Congestive heart failure, acute systolic heart failure exacerbation Cardiomyopathy ejection fraction 35% -2D echo -Rate control for A. fib -Diuresis tolerated. Given Bumex 2 mg IV x1 07/06 and 07/07 Severe sepsis -Continue Zosyn, DC vancomycin -Follow up on cultures, check influenza Chronic kidney disease -Monitor I's and O -Monitor creatinine and electrolyte -Diuresis as above -Consult nephrology DVT GI prophylaxis -Yoshi's and SCDs -Heparin drip -Pepcid Critical Care: Level 3. Transferred to CICU with telemetry. Consult hospitalist to assume care in a.m. 07/08 Roxana Barber MD Jul 07, 2017 08:07
[2017-07-07] MEDS: PANTOPRAZOLE SOD 20 MG DELAYED RELEASE TAB PO SCH (08:12)
[2017-07-07] MEDS: TIOTROPIUM BROMIDE 18 MCG INH INH SCH (08:12)
[2017-07-07] MEDS: METOPROLOL TARTRATE 50 MG TAB PO SCH ×3 (08:12→22:00)
[2017-07-07] MEDS: BUDESONIDE-FORMOTEROL 160/4.5 MCG INHALER INH SCH ×2 (08:12→22:25)
[2017-07-07] MEDS: guaiFENesin E.R. 600 MG TAB PO SCH ×2 (08:12→22:24)
[2017-07-07] MEDS: SODIUM CHLORIDE 0.9% FLUSH 10 ML FLUSH IV FLUSH SCH ×2 (08:13→22:25)
[2017-07-07] MEDS: DOCUSATE SODIUM 50 MG/SENNA 8.6 MG TAB PO SCH ×3 (08:13→22:24)
[2017-07-07] MEDS: ASPIRIN EC 81 MG TABEC PO SCH (08:13)
[2017-07-07] MEDS: GABAPENTIN 100 MG CAP PO SCH ×2 (08:13→22:24)
[2017-07-07] MEDS ORDERED: BUMEX IV ONE (08:30)
[2017-07-07] MEDS ORDERED: DEXTROSE 50% IN WATER 50 ML VIAL(D50) IV PUSH PRN (10:15)
[2017-07-07] MEDS ORDERED: GLUCAGON 1 MG/ML VIAL OTHER PRN (10:15)
[2017-07-07] MEDS: HEPARIN-D5W 25,000 U/250 ML 250 ML IV PRN (11:04)
[2017-07-07] MEDS ORDERED: cloNIDine HCL 0.3 MG TAB PO ONE (11:15)
[2017-07-07] MEDS: LOW DOSE INSULIN NOVOLOG SUPPLEMENTAL SCALE SQ SCH ×3 (12:00→21:00)
--- NOTE | 2017-07-07 15:09 | PD.CONS ---
HPI Service Nephrology Consult Requested By Dr. Conner Reason for Consult Acute on chronic kidney disease Primary Care Physician Serena Johnson MD History of Present Illness Patient is a 86 years old female with history of COPD, hypertension, congestive heart failure, and chronic kidney disease stage IV. Presented to emergency department with a complaint of worsening shortness of breath, cough, low-grade fever. She was found to have a left basilar pneumonia and during her hospitalization went into AFIB with RVR. Nephrology was consulted for acute on chronic kidney disease. Creatinine is 2.45 and GFR at 19ml/min. She is a known patient of Dr Guzmán and had office visit in April with a creatinine of 1.7 and GFR of 28ml/min so she has stage IV chronic kidney disease with a acute element. (Adrianna Rubin) Review of Systems Constitutional: COMPLAINS OF: Fatigue Respiratory: DENIES: Cough, Shortness of breath Cardiovascular: COMPLAINS OF: Dyspnea on Exertion, DENIES: Chest pain, Palpitations Gastrointestinal: DENIES: Abdominal pain, Constipation, Diarrhea, Nausea, Vomiting (Adrianna Rubin) Past Family Social History Allergies: Coded Allergies: furosemide (Verified Allergy, Severe, angioedema, 06/30/17) levofloxacin (Verified Allergy, Intermediate, Rash, 07/04/17) morphine (Verified Adverse Reaction, Intermediate, Nausea/Vomiting, 06/30/17 ) Past Medical History Hypertension COPD CHF Chronic kidney disease Breast cancer Past Surgical History Cervical cancer status post hysterectomy Right lumpectomy, breast cancer Active Ordered Medications Current Medications Medications (Trade) Dose Ordered Sig/Philomena Route Start Time Stop Time Status Last Admin (Duoneb Neb) 1 ampule Q2HR NEB PRN NEB 07/04/17 06:15 (NS Flush) 2 ml UNSCH PRN IV FLUSH 07/04/17 06:15 (NS Flush) 2 ml BID IV FLUSH 07/04/17 09:00 07/07/17 08:13 (Zofran Inj) 4 mg Q6H PRN IVP 07/04/17 06:15 (Tylenol) 650 mg Q6H PRN PO 07/04/17 06:15 ([place] 5-325 Mg) 1 tab Q4H PRN PO 07/04/17 06:15 ([place] 10-325 Mg) 1 tab Q4H PRN PO 07/04/17 06:15 (Shirley-Colace) 1 tab BID PO 07/04/17 09:00 07/07/17 08:13 (Milk Of Magnesia Liq) 30 ml Q12H PRN PO 07/04/17 06:15 (Senokot) 17.2 mg Q12H PRN PO 07/04/17 06:15 (Dulcolax Supp) 10 mg DAILY PRN RECTAL 07/04/17 06:15 (Lactulose Liq) 30 ml DAILY PRN PO 07/04/17 06:15 (Ecotrin Ec) 81 mg DAILY PO 07/04/17 09:00 07/07/17 08:13 (Neurontin) 100 mg BID PO 07/04/17 09:00 07/07/17 08:13 (Synthroid) 25 mcg DAILY@0600 PO 07/04/17 07:00 07/07/17 05:41 (Protonix) 20 mg DAILY PO 07/04/17 09:00 07/07/17 08:12 (Pravachol) 80 mg HS PO 07/04/17 21:00 07/06/17 20:57 Piperacillin Sod/ Tazobactam Sod 2.25 gm/Sodium Chloride 50 ml @ 100 mls/hr Q6H IV 07/05/17 09:00 07/07/17 14:42 (Mucinex Er) 600 mg BID PO 07/05/17 21:00 07/07/17 08:12 (Symbicort 160-4.5 Mcg Inh) 1 puff Q12HR INH 07/05/17 21:00 07/07/17 08:12 (Heparin Inj) 5,000 units UNSCH PRN IV PUSH 07/06/17 09:45 (Heparin Inj) 2,500 units UNSCH PRN IV PUSH 07/06/17 09:45 Heparin Sodium/ Dextrose 250 ml @ 8 mls/hr TITRATE PRN IV 07/06/17 03:45 07/07/17 11:04 (Spiriva Inh) 18 mcg DAILY INH 07/06/17 09:15 07/07/17 08:12 (Duoneb Neb) 1 ampule Q6HR NEB NEB 07/07/17 08:00 07/07/17 07:55 (SoluMEDROL INJ) 40 mg Q8HR IV PUSH 07/07/17 14:00 07/07/17 13:14 (Lopressor) 50 mg Q8HR PO 07/07/17 09:00 07/07/17 13:13 (D50w (Vial) Inj) 50 ml UNSCH PRN IV PUSH 07/07/17 10:15 (Glucagon Inj) 1 mg UNSCH PRN OTHER 07/07/17 10:15 (NovoLOG SUPPLEMENTAL SCALE) 1 ACHS SLIDING SCALE SQ 07/07/17 12:00 07/07/17 12:00 (Catapres) 0.3 mg Q6H PRN PO 07/07/17 17:00 Family History Non contributory. Social History Quit smoking 8 years ago had 50 year history of smoking Denies any ETOH use Lives with daughter (Adrianna RubinAquiles ABARCA) Physical Exam Vital Signs Vital Signs Date Time Temp Pulse Resp B/P (MAP) Pulse Ox O2 Delivery O2 Flow Rate FiO2 07/07/17 12:00 97.5 62 21 141/73 (95) 94 07/07/17 12:00 61 07/07/17 08:00 97.4 66 16 217/93 (134) 99 07/07/17 08:00 65 07/07/17 07:58 93 Nasal Cannula 4.00 07/07/17 07:00 93 Nasal Cannula 6.00 07/07/17 06:00 68 07/07/17 04:00 98.2 70 24 144/79 (100) 100 07/07/17 04:00 70 07/07/17 03:56 96 Partial Rebreather 10.00 07/07/17 02:00 66 07/07/17 00:23 66 146/78 07/07/17 00:00 97.4 70 21 146/78 (100) 100 07/07/17 00:00 70 07/06/17 23:39 99 Partial Rebreather 10.00 07/06/17 22:00 86 07/06/17 20:15 93 Nasal Cannula 4.00 07/06/17 20:00 80 07/06/17 20:00 97.7 80 19 139/67 (91) 91 07/06/17 19:00 89 Nasal Cannula 6.00 07/06/17 18:00 72 07/06/17 16:00 79 07/06/17 16:00 98.2 79 20 145/67 (93) 90 07/06/17 15:30 98 Nasal Cannula 4.00 Physical Exam GENERAL: alert and oriented SKIN: Warm and dry. HEAD: Normocephalic. EYES: No scleral icterus. No injection or drainage. NECK: Supple, trachea midline. No JVD or lymphadenopathy. CARDIOVASCULAR: Regular rate and rhythm without murmurs, gallops, or rubs. RESPIRATORY: Breath sounds equal bilaterally. No accessory muscle use. Diminished GASTROINTESTINAL: Abdomen soft, non-tender, nondistended. MUSCULOSKELETAL: No cyanosis, or edema. BACK: Nontender without obvious deformity. No CVA tenderness. Laboratory Laboratory Tests Test 07/06/17 15:54 07/06/17 20:37 07/07/17 06:02 07/07/17 13:02 Blood Urea Nitrogen 59 63 Creatinine 2.38 2.45 Random Glucose 192 154 Total Protein 6.5 6.2 Albumin 2.9 2.7 Calcium Level 8.3 8.1 Phosphorus Level 4.5 5.0 Magnesium Level 2.2 2.5 Alkaline Phosphatase 66 69 Aspartate Amino Transf (AST/SGOT) 42 50 Alanine Aminotransferase (ALT/SGPT) 52 57 Total Bilirubin 0.5 0.5 Sodium Level 144 143 Potassium Level 3.5 3.5 Chloride Level 108 109 Carbon Dioxide Level 21.9 24.9 Anion Gap 14 9 Estimat Glomerular Filtration Rate 19 19 Activated Partial Thromboplast Time 42.0 32.1 White Blood Count 15.0 Red Blood Count 3.79 Hemoglobin 10.6 Hematocrit 32.3 Mean Corpuscular Volume 85.2 Mean Corpuscular Hemoglobin 27.9 Mean Corpuscular Hemoglobin Concent 32.8 Red Cell Distribution Width 15.7 Platelet Count 251 Mean Platelet Volume 8.6 Neutrophils (%) (Auto) 93.6 Lymphocytes (%) (Auto) 3.8 Monocytes (%) (Auto) 2.5 Eosinophils (%) (Auto) 0.0 Basophils (%) (Auto) 0.1 Neutrophils # (Auto) 14.0 Lymphocytes # (Auto) 0.6 Monocytes # (Auto) 0.4 Eosinophils # (Auto) 0.0 Basophils # (Auto) 0.0 CBC Comment DIFF FINAL Differential Comment Random Vancomycin Level 16.4 Date/Time Source Procedure Growth Status 07/06/17 09:35 Nasal Aspirate Influenza Types A,B Antigen (ROGER) - Final NEGATIVE FOR FLU A AND B ANTIGEN.... Complete 07/04/17 23:50 Urine Clean Catch Legionella Antigen - Final PRESUMPTIVE NEGATIVE FOR LEGIONELLA P... Complete 07/04/17 23:50 Urine Clean Catch Streptococcus pneumoniae Antigen (M - Final PRESUMPTIVE NEGATIVE FOR STREPTOCOCCU... Complete (Adrianna Rubin) Result Diagram: 07/07/1702 07/07/17 0602 Imaging Last Impressions Chest X-Ray 07/07/17 0600 Signed Impressions: Service Date/Time: June 04:49 - CONCLUSION: Interstitial and alveolar densities throughout the right lung. Hemant Irby MD Chest CT 07/04/17 0000 Signed Impressions: Service Date/Time: Tuesday, July 04, 2017 11:04 - CONCLUSION: 1. Centrilobular emphysematous changes are again noted bilaterally. 2. Patchy opacity is noted within the left lower lobe posteriorly consistent with possible pneumonia or atelectasis. 3. 4. Scattered noncalcified nodular densities are also noted within the superior segment of the left lower lobe with the largest measuring 7 mm. Differential includes nodular infiltrate or true pulmonary nodules. The findings described above include a newly detected solid pulmonary nodule of 6- 8 mm average diameter. Guidelines from the Fleischner Society for the follow-up and management of newly detected indeterminate pulmonary nodules in persons > 34 years old depend on nodule size (average of length and width) and underlying risk factors (including smoking and other risk factors). Please consider the following recommendations after clinical assessment of risk factors. For 6-8 mm nodules: 5. In low risk patients, initial follow-up CT at 6-12 months, then 18-24 months if no change. In high risk patients, initial follow-up CT at 3-6 months, then 9-12 and 24 months if no change. 6. Cardiomegaly, mitral valve calcifications and coronary artery calcifications. 7. Tiny bilateral pleural effusions. 8. Stable pretracheal mediastinal lymphadenopathy which is nonspecific Hunter Randall MD (Adrianna Rubin) Assessment and Plan Problem List: (1) Chronic kidney disease, stage 4 (severe) ICD Codes: N18.4 - Chronic kidney disease, stage 4 (severe) Status: Acute Plan: Acute Kidney injury with creatinine of 2.45 from prerenal vs ATN Has chronic kidney disease stage IV with baseline creatinine of 1.7-2.0 from hypertension and renovascular disease Has been on bumex as needed at home. Plan Bumex given 2mg yesterday and today. Monitor I +O and BMP Renal dose antibiotics Avoid nephrotoxins. (2) Acute exacerbation of CHF (congestive heart failure) ICD Codes: I50.9 - Heart failure, unspecified Status: Acute Plan: Breathing easily now Bumex given yesterday and today (3) Pneumonia ICD Codes: J18.9 - Pneumonia, unspecified organism Status: Acute Plan: Continue antibiotics (4) Hypertension ICD Codes: I10 - Essential (primary) hypertension Status: Chronic Plan: will monitor (Adrianna Rubin) Problem List: (1) Chronic kidney disease, stage 4 (severe) ICD Codes: N18.4 - Chronic kidney disease, stage 4 (severe) Status: Acute Plan: Acute Kidney injury with creatinine of 2.45 from prerenal vs ATN Has chronic kidney disease stage IV with baseline creatinine of 1.7-2.0 from hypertension and renovascular disease Has been on bumex as needed at home. Plan Bumex given 2mg yesterday and today. Monitor I +O and BMP Renal dose antibiotics Avoid nephrotoxins. Patient seen and examined, agree with above. Patient has chronic kidney disease and develop ABDULLAHI. ATN from infection, possibly Vanco. related. Follow urine out put and diuretic as needed. (2) Acute exacerbation of CHF (congestive heart failure) ICD Codes: I50.9 - Heart failure, unspecified Status: Acute Plan: Breathing easily now Bumex given yesterday and today (3) Pneumonia ICD Codes: J18.9 - Pneumonia, unspecified organism Status: Acute Plan: Continue antibiotics (4) Hypertension ICD Codes: I10 - Essential (primary) hypertension Status: Chronic Plan: will monitor (Stefan Guzmán MD) Adrianna Rubin Jul 07, 2017 15:09 Stefan Guzmán MD Jul 07, 2017 18:16
[2017-07-07] MEDS ORDERED: cloNIDine HCL 0.3 MG TAB PO PRN (17:00)
--- NOTE | 2017-07-07 19:35 | HHI.PR ---
Subjective Remarks 86 YOWF with COPD,Left basal infilt, CKD Breathing better Up in chair AF with RVR Off Amiodarone . On Heparin drip Objective Vital Signs Vital Signs Date Time Temp Pulse Resp B/P (MAP) Pulse Ox O2 Delivery O2 Flow Rate FiO2 07/07/17 16:00 97.5 60 17 136/68 (90) 95 07/07/17 16:00 60 07/07/17 12:00 97.5 62 21 141/73 (95) 94 07/07/17 12:00 61 07/07/17 08:00 97.4 66 16 217/93 (134) 99 07/07/17 08:00 65 07/07/17 07:58 93 Nasal Cannula 4.00 07/07/17 07:00 93 Nasal Cannula 6.00 07/07/17 06:00 68 07/07/17 04:00 98.2 70 24 144/79 (100) 100 07/07/17 04:00 70 07/07/17 03:56 96 Partial Rebreather 10.00 07/07/17 02:00 66 07/07/17 00:23 66 146/78 07/07/17 00:00 97.4 70 21 146/78 (100) 100 07/07/17 00:00 70 07/06/17 23:39 99 Partial Rebreather 10.00 07/06/17 22:00 86 07/06/17 20:15 93 Nasal Cannula 4.00 07/06/17 20:00 80 07/06/17 20:00 97.7 80 19 139/67 (91) 91 I/O 07/06/17 07/06/17 07/06/17 07/07/17 07/07/17 07/07/17 07:00 15:00 23:00 07:00 15:00 23:00 Intake Total 220 ml 300 ml 290 ml 600 ml 430 ml 530 ml Output Total 200 ml 2100 ml 650 ml 1300 ml Balance 20 ml 300 ml -1810 ml -50 ml 430 ml -770 ml Intake Oral 120 ml 240 ml 600 ml 480 ml IV Total 100 ml 300 ml 50 ml 430 ml 50 ml Output Urine Total 200 ml 2100 ml 650 ml 1300 ml # Voids 2 # Bowel Movements 0 0 0 Result Diagram: 07/07/1760107/07/17601 Objective Remarks GENERAL: MBMN WF, mild sob SKIN: Warm and dry. HEAD: Normocephalic. EYES: No scleral icterus. No injection or drainage. NECK: Supple, trachea midline. No JVD or lymphadenopathy. CARDIOVASCULAR: Regular rate and rhythm without murmurs, gallops, or rubs. RESPIRATORY: Breath sounds equal bilaterally. No accessory muscle use. GASTROINTESTINAL: Abdomen soft, non-tender, nondistended. MUSCULOSKELETAL: No cyanosis, or edema. BACK: Nontender without obvious deformity. No CVA tenderness. A/P Assessment and Plan IMPRESSION: 1. Left basal pneumonia. 2. Nodular infiltrate. 3. Chronic obstructive pulmonary disease, mild exacerbation. 4. Congestive heart failure. 5. Chronic kidney disease PLAN: Aerosol nebs Cont Abx monitor renal functions Heparin ip Filipe Joshi MD Jul 07, 2017 19:35
[2017-07-07] MEDS: PRAVASTATIN SOD 80 MG TAB PO SCH (22:24)
[2017-07-07] MEDS: PIPERACIL-TAZO 2.25 GM PREMIX 50 ML IV SCH (22:25)
[2017-07-08] VITALS (25 sets, daily range): BP systolic 133–165; BP diastolic 72–92; PULSE 56–100; RESP 16–18; TEMP 97.3–98.8; O2SAT 92–99
[2017-07-08] MEDS: PIPERACIL-TAZO 2.25 GM PREMIX 50 ML IV SCH (03:47)
[2017-07-08] MEDS: RESP: ALBUTEROL 2.5 MG/IPRATROPIUM 0.5 MG NEB (SCH) NEB ×4 (03:48→20:32)
[2017-07-08] MEDS: LEVOTHYROXINE SODIUM 25 MCG TAB PO SCH (06:05)
[2017-07-08] MEDS: METOPROLOL TARTRATE 50 MG TAB PO SCH ×3 (06:05→22:08)
[2017-07-08] MEDS: methylPREDNISolone SOD SUCC 40 MG/1 ML VIAL IV PUSH SCH ×2 (06:06→14:36)
[2017-07-08 07:37] LABS: CREATININE 1.9 MG/DL (0.50-1.00)
--- NOTE | 2017-07-08 07:40 | PD.CARD.PN ---
Subjective Subjective Remarks pt requesting d/c Objective Medications Current Medications Medications (Trade) Dose Ordered Sig/Philomena Route Start Time Stop Time Status Last Admin (Duoneb Neb) 1 ampule Q2HR NEB PRN NEB 07/04/17 06:15 (NS Flush) 2 ml UNSCH PRN IV FLUSH 07/04/17 06:15 (NS Flush) 2 ml BID IV FLUSH 07/04/17 09:00 07/07/17 22:25 (Zofran Inj) 4 mg Q6H PRN IVP 07/04/17 06:15 (Tylenol) 650 mg Q6H PRN PO 07/04/17 06:15 07/08/17 06:05 ([place] 5-325 Mg) 1 tab Q4H PRN PO 07/04/17 06:15 ([place] 10-325 Mg) 1 tab Q4H PRN PO 07/04/17 06:15 (Shirley-Colace) 1 tab BID PO 07/04/17 09:00 07/07/17 22:24 (Milk Of Magnesia Liq) 30 ml Q12H PRN PO 07/04/17 06:15 (Senokot) 17.2 mg Q12H PRN PO 07/04/17 06:15 (Dulcolax Supp) 10 mg DAILY PRN RECTAL 07/04/17 06:15 (Lactulose Liq) 30 ml DAILY PRN PO 07/04/17 06:15 (Ecotrin Ec) 81 mg DAILY PO 07/04/17 09:00 07/07/17 08:13 (Neurontin) 100 mg BID PO 07/04/17 09:00 07/07/17 22:24 (Synthroid) 25 mcg DAILY@0600 PO 07/04/17 07:00 07/08/17 06:05 (Protonix) 20 mg DAILY PO 07/04/17 09:00 07/07/17 08:12 (Pravachol) 80 mg HS PO 07/04/17 21:00 07/07/17 22:24 (Mucinex Er) 600 mg BID PO 07/05/17 21:00 07/07/17 22:24 (Symbicort 160-4.5 Mcg Inh) 1 puff Q12HR INH 07/05/17 21:00 07/07/17 22:25 (Heparin Inj) 5,000 units UNSCH PRN IV PUSH 07/06/17 09:45 (Heparin Inj) 2,500 units UNSCH PRN IV PUSH 07/06/17 09:45 07/07/17 15:03 Heparin Sodium/ Dextrose 250 ml @ 8 mls/hr TITRATE PRN IV 07/06/17 03:45 07/07/17 11:04 (Spiriva Inh) 18 mcg DAILY INH 07/06/17 09:15 07/07/17 08:12 (Duoneb Neb) 1 ampule Q6HR NEB NEB 07/07/17 08:00 07/08/17 03:48 (SoluMEDROL INJ) 40 mg Q8HR IV PUSH 07/07/17 14:00 07/08/17 06:06 (Lopressor) 50 mg Q8HR PO 07/07/17 09:00 07/08/17 06:05 (D50w (Vial) Inj) 50 ml UNSCH PRN IV PUSH 07/07/17 10:15 (Glucagon Inj) 1 mg UNSCH PRN OTHER 07/07/17 10:15 (NovoLOG SUPPLEMENTAL SCALE) 1 ACHS SLIDING SCALE SQ 07/07/17 12:00 07/07/17 12:00 (Catapres) 0.3 mg Q6H PRN PO 07/07/17 17:00 Piperacillin Sod/ Tazobactam Sod 50 ml @ 100 mls/hr Q6H IV 07/07/17 21:00 07/08/17 03:47 Vital Signs / I&O Vital Signs Date Time Temp Pulse Resp B/P (MAP) Pulse Ox O2 Delivery O2 Flow Rate FiO2 07/08/17 07:32 16 07/08/17 05:25 75 07/08/17 04:00 60 18 165/82 (109) 93 07/08/17 03:52 92 Nasal Cannula 4.00 07/08/17 00:00 71 07/07/17 20:00 63 18 139/79 (99) 93 07/07/17 20:00 Nasal Cannula 4.00 50 07/07/17 20:00 57 07/07/17 17:30 98.6 82 18 144/78 (100) 96 07/07/17 16:00 97.5 60 17 136/68 (90) 95 07/07/17 16:00 60 07/07/17 12:00 97.5 62 21 141/73 (95) 94 07/07/17 12:00 61 07/07/17 08:00 97.4 66 16 217/93 (134) 99 07/07/17 08:00 65 07/07/17 07:58 93 Nasal Cannula 4.00 I/O 07/07/17 07/07/17 07/07/17 07/08/17 07/08/17 07/08/17 07:00 15:00 23:00 07:00 15:00 23:00 Intake Total 600 ml 430 ml 1010 ml 480 ml Output Total 650 ml 1500 ml 900 ml Balance -50 ml 430 ml -490 ml -420 ml Intake Oral 600 ml 960 ml 480 ml IV Total 430 ml 50 ml Output Urine Total 650 ml 1500 ml 900 ml # Bowel Movements 0 0 Physical Exam GENERAL: Well developed, well nourished. No acute distress. HEENT: Jugular venous pressure is normal. CHEST: Lungs decreased and clear to auscultation bilaterally. Unlabored respiratory effort. CARDIAC: Regular rate and rhythm without S3, S4, or murmur. ABDOMEN: Soft, nontender, EXTREMITIES: No clubbing, cyanosis, or edema. Laboratory Laboratory Tests Test 07/07/17 13:02 07/07/17 22:21 07/08/17 06:46 Activated Partial Thromboplast Time 32.1 SEC 74.4 SEC Creatinine 1.90 MG/DL Estimat Glomerular Filtration Rate 25 ML/MIN Imaging Last 72 hours Impressions Chest X-Ray 07/07/17 0600 Signed Impressions: Service Date/Time: June 04:49 - CONCLUSION: Interstitial and alveolar densities throughout the right lung. Hemant Irby MD Assessment and Plan Assessment and Plan AF- back in NSR, d/c amio -continue BB -CHADS VASC-at least 4---coumadin vs AGUILAR discussed -eliquis today, d/c heparin Cardiomyopathy EF 30-35% - check ECHO on BB -no HUGO with elevated Cr Pneumonia- per CCM other- ok for OOB to chair Cecelia Bautista MD Jul 08, 2017 07:40
[2017-07-08] MEDS: LOW DOSE INSULIN NOVOLOG SUPPLEMENTAL SCALE SQ SCH ×4 (08:00→21:00)
[2017-07-08] MEDS: SODIUM CHLORIDE 0.9% FLUSH 10 ML FLUSH IV FLUSH SCH ×2 (09:00→22:07)
[2017-07-08] MEDS: TIOTROPIUM BROMIDE 18 MCG INH INH SCH (09:00)
[2017-07-08] MEDS: GABAPENTIN 100 MG CAP PO SCH ×2 (09:00→22:07)
[2017-07-08] MEDS: DOCUSATE SODIUM 50 MG/SENNA 8.6 MG TAB PO SCH ×2 (09:00→21:00)
[2017-07-08] MEDS: ASPIRIN EC 81 MG TABEC PO SCH (09:00)
[2017-07-08] MEDS: guaiFENesin E.R. 600 MG TAB PO SCH ×2 (09:00→22:08)
[2017-07-08] MEDS: PANTOPRAZOLE SOD 20 MG DELAYED RELEASE TAB PO SCH (09:00)
[2017-07-08] MEDS: BUDESONIDE-FORMOTEROL 160/4.5 MCG INHALER INH SCH ×2 (09:00→22:09)
--- NOTE | 2017-07-08 09:06 | HHI.PR ---
Subjective Remarks feeling better denies any chest pain baseline ambulatory, independent history of chronic smoking- 1 ppday stopped 8 years ago- known COPD- not 02 dependent Objective Vitals Vital Signs Date Time Temp Pulse Resp B/P (MAP) Pulse Ox O2 Delivery O2 Flow Rate FiO2 07/08/17 07:32 16 07/08/17 05:25 75 07/08/17 05:00 62 07/08/17 04:00 60 07/08/17 04:00 60 18 165/82 (109) 93 07/08/17 03:52 92 Nasal Cannula 4.00 07/08/17 03:00 56 07/08/17 02:00 56 07/08/17 01:00 56 07/08/17 00:00 71 07/08/17 00:00 64 07/07/17 23:00 58 07/07/17 22:00 54 07/07/17 21:00 54 07/07/17 20:00 60 07/07/17 20:00 63 18 139/79 (99) 93 07/07/17 20:00 Nasal Cannula 4.00 50 07/07/17 20:00 57 07/07/17 19:00 56 07/07/17 17:30 98.6 82 18 144/78 (100) 96 07/07/17 16:00 97.5 60 17 136/68 (90) 95 07/07/17 16:00 60 07/07/17 12:00 97.5 62 21 141/73 (95) 94 07/07/17 12:00 61 I/O 07/07/17 07/07/17 07/07/17 07/08/17 07/08/17 07/08/17 07:00 15:00 23:00 07:00 15:00 23:00 Intake Total 600 ml 430 ml 1010 ml 480 ml Output Total 650 ml 1500 ml 900 ml Balance -50 ml 430 ml -490 ml -420 ml Intake Oral 600 ml 960 ml 480 ml IV Total 430 ml 50 ml Output Urine Total 650 ml 1500 ml 900 ml # Bowel Movements 0 0 Result Diagram: 07/07/17 0602 07/08/17 0646 Imaging Last Impressions Chest X-Ray 07/07/17 0600 Signed Impressions: Service Date/Time: June 04:49 - CONCLUSION: Interstitial and alveolar densities throughout the right lung. Hemant Irby MD Chest CT 07/04/17 0000 Signed Impressions: Service Date/Time: Tuesday, July 04, 2017 11:04 - CONCLUSION: 1. Centrilobular emphysematous changes are again noted bilaterally. 2. Patchy opacity is noted within the left lower lobe posteriorly consistent with possible pneumonia or atelectasis. 3. 4. Scattered noncalcified nodular densities are also noted within the superior segment of the left lower lobe with the largest measuring 7 mm. Differential includes nodular infiltrate or true pulmonary nodules. The findings described above include a newly detected solid pulmonary nodule of 6- 8 mm average diameter. Guidelines from the Fleischner Society for the follow-up and management of newly detected indeterminate pulmonary nodules in persons > 34 years old depend on nodule size (average of length and width) and underlying risk factors (including smoking and other risk factors). Please consider the following recommendations after clinical assessment of risk factors. For 6-8 mm nodules: 5. In low risk patients, initial follow-up CT at 6-12 months, then 18-24 months if no change. In high risk patients, initial follow-up CT at 3-6 months, then 9-12 and 24 months if no change. 6. Cardiomegaly, mitral valve calcifications and coronary artery calcifications. 7. Tiny bilateral pleural effusions. 8. Stable pretracheal mediastinal lymphadenopathy which is nonspecific Hunter Randall MD Objective Remarks awake and alert, appears comfortable- but appears slightlyly tachypneic anicteric no nuchal rigidity lungs- no rales, no wheezes irregular rhythm, telemery- sinus with occ PVCs vs paroxsymal a fib abdomen soft, nontender no edema, good peripheral pulses neuro exam-unremarkable Urinary Catheter: Yes Assessment to: Remove Date of Removal: Jul 08, 2017 A/P Assessment and Plan 86 years old Acute hypoxemic respiratory failure Bibasilar pneumonia -Underlying COPD, basilar pneumonia -Empiric antibiotic with Zosyn -- change to po augmentin 500 mg -Follow-up cultures, influenza negative Pulmonary ff Acute COPD exacerbation- mario alberto will need home 02 -DuoNeb scheduled and as needed -IV Solu-Medrol 40 every q 8-- gradually taper decrease to q 12 -Continue Symbicort and Spiriva Pulmonary ff - ciaran do Walk test- will probably qualify for home 02 New-onset A. fib with RVR - intermittent -continue BB.- Metoprolol 50 mg po q 8 amiodarone DC -CHADS VASC-at least 4-- -started on eliquis today, d/c heparin Cardiomyopathy EF 30-35% - on BB -no HUGO with elevated Cr -Diuresis tolerated. Given Bumex 2 mg IV x1 07/06 and 07/07 -cardiology ff Pneumonia-- continue on antibiotics ABDULLAHI on top of chronic KD III - creatinine now back to baseline - DC rob - Nephrology ff- will defer to them regarding initiation of maintenance diuretics DVT GI prophylaxis -Yoshi's and SCDs -- on Eliquis for A fib -Pepcid Increase activity Out of bed to chair PT alonzo CM for DC planning Juanjose Lehman MD Jul 08, 2017 09:06
[2017-07-08] MEDS ORDERED: OXYGEN NAS.CANULA (12:56)
--- NOTE | 2017-07-08 13:00 | HHI.NPPN ---
Subjective History of Present Illness Patient is a 86 years old female with history of COPD, hypertension, congestive heart failure, and chronic kidney disease stage IV. Presented to emergency department with a complaint of worsening shortness of breath, cough, low-grade fever. She was found to have a left basilar pneumonia and during her hospitalization went into AFIB with RVR. Nephrology was consulted for acute on chronic kidney disease. Creatinine is 2.45 and GFR at 19ml/min. She is a known patient of Dr Guzmán and had office visit in April with a creatinine of 1.7 and GFR of 28ml/min so she has stage IV chronic kidney disease with a acute element. Additional Remarks Resting comfortably. Denies any SOB and no edema present. (Adrianna Rubin) Review of Systems Respiratory Respiratory Remarks Denies SOB (Adrianna Rubin) Cardiovascular Cardiac Remarks Denies CP (Adrianna Rubin) Gastrointestinal GI Remarks Denies abdominal pain (Adrianna Rubin) Objective Data Data Vital Signs Date Time Temp Pulse Resp B/P (MAP) Pulse Ox O2 Delivery O2 Flow Rate FiO2 07/08/17 11:05 4.00 07/08/17 09:22 99 Nasal Cannula 4.00 07/08/17 07:32 16 07/08/17 05:25 75 07/08/17 05:00 62 07/08/17 04:00 60 07/08/17 04:00 60 18 165/82 (109) 93 07/08/17 03:52 92 Nasal Cannula 4.00 07/08/17 03:00 56 07/08/17 02:00 56 07/08/17 01:00 56 07/08/17 00:00 71 07/08/17 00:00 64 07/07/17 23:00 58 07/07/17 22:00 54 07/07/17 21:00 54 07/07/17 20:00 60 07/07/17 20:00 63 18 139/79 (99) 93 07/07/17 20:00 Nasal Cannula 4.00 50 07/07/17 20:00 57 07/07/17 19:00 56 07/07/17 17:30 98.6 82 18 144/78 (100) 96 07/07/17 16:00 97.5 60 17 136/68 (90) 95 07/07/17 16:00 60 (Adrianna Rubin) -: 07/07/17 0602 07/08/17 0646 Imaging Last Impressions Chest X-Ray 07/07/17 0600 Signed Impressions: Service Date/Time: June 04:49 - CONCLUSION: Interstitial and alveolar densities throughout the right lung. Hemant Irby MD Chest CT 07/04/17 0000 Signed Impressions: Service Date/Time: Tuesday, July 04, 2017 11:04 - CONCLUSION: 1. Centrilobular emphysematous changes are again noted bilaterally. 2. Patchy opacity is noted within the left lower lobe posteriorly consistent with possible pneumonia or atelectasis. 3. 4. Scattered noncalcified nodular densities are also noted within the superior segment of the left lower lobe with the largest measuring 7 mm. Differential includes nodular infiltrate or true pulmonary nodules. The findings described above include a newly detected solid pulmonary nodule of 6- 8 mm average diameter. Guidelines from the Fleischner Society for the follow-up and management of newly detected indeterminate pulmonary nodules in persons > 34 years old depend on nodule size (average of length and width) and underlying risk factors (including smoking and other risk factors). Please consider the following recommendations after clinical assessment of risk factors. For 6-8 mm nodules: 5. In low risk patients, initial follow-up CT at 6-12 months, then 18-24 months if no change. In high risk patients, initial follow-up CT at 3-6 months, then 9-12 and 24 months if no change. 6. Cardiomegaly, mitral valve calcifications and coronary artery calcifications. 7. Tiny bilateral pleural effusions. 8. Stable pretracheal mediastinal lymphadenopathy which is nonspecific Hunter Randall MD Tubes & Lines: Diaz (Adrianna Rubin) Physical Exam General Appearance: Well Developed, No Acute Distress, Comfortable (Adrianna Rubin) Eyes Eye Exam: Pupils Equal (Adrianna RubinP) Throat Throat Exam: Oral Mucosa [place] & Moist (Adrianna RubinP) Pulmonary Resp Exam: Breath Sounds Equal, No Distress, Decreased Bases (Adrianna RubinP) Cardiology CV Exam: Irregular (Adrianna Rubin) Gastrointestinal/Abdomen GI Exam: Soft, Non-Tender, Bowel Sounds Present (Adrianna Rubin) Integumentary Skin Exam: Clear, Warm, Dry (Adrianna Rubin) Extremeties Extremities Exam: No Edema (Adrianna Rubin) Assessment/Plan Problem List: (1) Chronic kidney disease, stage 4 (severe) ICD Codes: N18.4 - Chronic kidney disease, stage 4 (severe) Status: Acute Plan: Acute Kidney injury from ATN from infection, possibly Vanco. related. Has chronic kidney disease stage IV with baseline creatinine of 1.7-2.0 from hypertension and renovascular disease Has been on bumex as needed at home. Plan Monitor I +O and BMP Renal dose antibiotics Avoid nephrotoxins. No edema or shortness of breath will not give bumex today. Creatinine at baseline (2) Acute exacerbation of CHF (congestive heart failure) ICD Codes: I50.9 - Heart failure, unspecified Status: Acute Plan: Breathing easily now (3) Pneumonia ICD Codes: J18.9 - Pneumonia, unspecified organism Status: Acute Plan: Continue antibiotics (4) Hypertension ICD Codes: I10 - Essential (primary) hypertension Status: Chronic Plan: will monitor (Adrianna Rubin) Problem List: (1) Chronic kidney disease, stage 4 (severe) ICD Codes: N18.4 - Chronic kidney disease, stage 4 (severe) Status: Acute Plan: Acute Kidney injury from ATN from infection, possibly Vanco. related. Has chronic kidney disease stage IV with baseline creatinine of 1.7-2.0 from hypertension and renovascular disease Has been on bumex as needed at home. Plan Monitor I +O and BMP Renal dose antibiotics Avoid nephrotoxins. No edema or shortness of breath will not give bumex today. Creatinine at baseline. Patient seen and examined, agree with above. Bumex is on hold. (2) Acute exacerbation of CHF (congestive heart failure) ICD Codes: I50.9 - Heart failure, unspecified Status: Acute Plan: Breathing easily now (3) Pneumonia ICD Codes: J18.9 - Pneumonia, unspecified organism Status: Acute Plan: Continue antibiotics (4) Hypertension ICD Codes: I10 - Essential (primary) hypertension Status: Chronic Plan: will monitor (Stefan Guzmán MD) Adrianna Rubin Jul 08, 2017 13:00 Stefan Guzmán MD Jul 11, 2017 18:24
[2017-07-08] MEDS: APIXABAN 2.5 MG TABLET PO SCH ×2 (14:36→22:07)
[2017-07-08] MEDS ORDERED: methylPREDNISolone SOD SUCC 40 MG/1 ML VIAL IV PUSH SCH (18:00)
--- NOTE | 2017-07-08 18:26 | HHI.PR ---
Subjective Remarks 86 YOWF with COPD,Left basal infilt, CKD Breathing better Up in chair AF with RVR Breathing much better On NC Objective Vital Signs Vital Signs Date Time Temp Pulse Resp B/P (MAP) Pulse Ox O2 Delivery O2 Flow Rate FiO2 07/08/17 11:05 4.00 07/08/17 09:22 99 Nasal Cannula 4.00 07/08/17 07:32 16 07/08/17 05:25 75 07/08/17 05:00 62 07/08/17 04:00 60 07/08/17 04:00 60 18 165/82 (109) 93 07/08/17 03:52 92 Nasal Cannula 4.00 07/08/17 03:00 56 07/08/17 02:00 56 07/08/17 01:00 56 07/08/17 00:00 71 07/08/17 00:00 64 07/07/17 23:00 58 07/07/17 22:00 54 07/07/17 21:00 54 07/07/17 20:00 60 07/07/17 20:00 63 18 139/79 (99) 93 07/07/17 20:00 Nasal Cannula 4.00 50 07/07/17 20:00 57 07/07/17 19:00 56 I/O 07/07/17 07/07/17 07/07/17 07/08/17 07/08/17 07/08/17 07:00 15:00 23:00 07:00 15:00 23:00 Intake Total 600 ml 430 ml 1010 ml 480 ml Output Total 650 ml 1500 ml 900 ml Balance -50 ml 430 ml -490 ml -420 ml Intake Oral 600 ml 960 ml 480 ml IV Total 430 ml 50 ml Output Urine Total 650 ml 1500 ml 900 ml # Bowel Movements 0 0 Result Diagram: 07/07/17 0602 07/08/17 0646 Objective Remarks GENERAL: MBMN WF, mild sob SKIN: Warm and dry. HEAD: Normocephalic. EYES: No scleral icterus. No injection or drainage. NECK: Supple, trachea midline. No JVD or lymphadenopathy. CARDIOVASCULAR: Regular rate and rhythm without murmurs, gallops, or rubs. RESPIRATORY: Breath sounds equal bilaterally. No accessory muscle use. GASTROINTESTINAL: Abdomen soft, non-tender, nondistended. MUSCULOSKELETAL: No cyanosis, or edema. BACK: Nontender without obvious deformity. No CVA tenderness. A/P Assessment and Plan IMPRESSION: 1. Left basal pneumonia. 2. Nodular infiltrate. 3. Chronic obstructive pulmonary disease, mild exacerbation. 4. Congestive heart failure. 5. Chronic kidney disease PLAN: Aerosol nebs Cont Abx monitor renal functions Home 02 DCplans underway Will FU in office Filipe Joshi MD Jul 08, 2017 18:26
[2017-07-08] MEDS: PRAVASTATIN SOD 80 MG TAB PO SCH (22:07)
[2017-07-08] MEDS: AMOXICILLIN/CLAVULANATE K 500 MG TAB PO SCH (22:08)
[2017-07-08] MEDS: predniSONE 10 MG TAB PO SCH (22:08)
[2017-07-09] VITALS (7 sets, daily range): BP systolic 130–171; BP diastolic 75–92; PULSE 56–70; RESP 16–18; TEMP 98.2–98.3; O2SAT 92–96
[2017-07-09] MEDS ORDERED: methylPREDNISolone SOD SUCC 40 MG/1 ML VIAL IV PUSH SCH (02:00)
[2017-07-09] MEDS: RESP: ALBUTEROL 2.5 MG/IPRATROPIUM 0.5 MG NEB (SCH) NEB ×2 (03:11→09:23)
[2017-07-09] MEDS: LEVOTHYROXINE SODIUM 25 MCG TAB PO SCH (05:42)
[2017-07-09] MEDS: METOPROLOL TARTRATE 50 MG TAB PO SCH (05:43)
[2017-07-09] MEDS: LOW DOSE INSULIN NOVOLOG SUPPLEMENTAL SCALE SQ SCH ×2 (08:00→12:00)
[2017-07-09] MEDS ORDERED: amLODIPine BESYLATE 5 MG TAB PO SCH (09:00)
[2017-07-09] MEDS ORDERED: PILL SPLITTER OTHER PRN (09:00)
[2017-07-09] MEDS: guaiFENesin E.R. 600 MG TAB PO SCH (09:08)
[2017-07-09] MEDS: GABAPENTIN 100 MG CAP PO SCH (09:09)
[2017-07-09] MEDS: ASPIRIN EC 81 MG TABEC PO SCH (09:09)
[2017-07-09] MEDS: DOCUSATE SODIUM 50 MG/SENNA 8.6 MG TAB PO SCH (09:09)
[2017-07-09] MEDS: predniSONE 10 MG TAB PO SCH (09:09)
[2017-07-09] MEDS: AMOXICILLIN/CLAVULANATE K 500 MG TAB PO SCH (09:09)
[2017-07-09] MEDS: PANTOPRAZOLE SOD 20 MG DELAYED RELEASE TAB PO SCH (09:09)
[2017-07-09] MEDS: APIXABAN 2.5 MG TABLET PO SCH (09:09)
[2017-07-09] MEDS: BUDESONIDE-FORMOTEROL 160/4.5 MCG INHALER INH SCH (09:10)
[2017-07-09] MEDS: SODIUM CHLORIDE 0.9% FLUSH 10 ML FLUSH IV FLUSH SCH (09:10)
--- NOTE | 2017-07-09 09:49 | HHI.NPPN ---
Subjective History of Present Illness Patient is a 86 years old female with history of COPD, hypertension, congestive heart failure, and chronic kidney disease stage IV. Presented to emergency department with a complaint of worsening shortness of breath, cough, low-grade fever. She was found to have a left basilar pneumonia and during her hospitalization went into AFIB with RVR. Nephrology was consulted for acute on chronic kidney disease. Creatinine is 2.45 and GFR at 19ml/min. She is a known patient of Dr Guzmán and had office visit in April with a creatinine of 1.7 and GFR of 28ml/min so she has stage IV chronic kidney disease with a acute element. Additional Remarks Renal function continued to improve as of yesterday. Review of Systems Respiratory Respiratory Remarks Denies SOB Cardiovascular Cardiac Remarks Denies CP Gastrointestinal GI Remarks Denies abdominal pain Objective Data Data Vital Signs Date Time Temp Pulse Resp B/P (MAP) Pulse Ox O2 Delivery O2 Flow Rate FiO2 07/09/17 09:25 92 Nasal Cannula 4.00 07/09/17 09:02 70 16 160/75 (103) 95 07/09/17 08:05 98.3 69 18 171/92 (118) 94 07/09/17 04:00 56 07/09/17 04:00 57 07/09/17 04:00 67 16 159/87 (111) 94 07/09/17 00:07 67 16 159/87 (111) 94 07/08/17 20:35 94 Nasal Cannula 4.00 07/08/17 20:15 97.3 66 16 149/92 (111) 95 07/08/17 20:15 Nasal Cannula 4.00 50 07/08/17 20:15 70 07/08/17 18:00 76 07/08/17 17:00 76 07/08/17 16:25 98.4 68 18 133/72 (92) 94 07/08/17 16:00 75 07/08/17 15:00 77 07/08/17 14:00 100 07/08/17 13:00 81 07/08/17 12:00 76 07/08/17 12:00 98.8 69 18 142/86 (104) 93 07/08/17 11:05 4.00 07/08/17 11:00 67 07/08/17 10:00 81 -: 07/07/17 0602 07/08/17 0646 Tubes & Lines: Diaz Physical Exam General Appearance: Well Developed, No Acute Distress, Comfortable Eyes Eye Exam: Pupils Equal Throat Throat Exam: Oral Mucosa [place] & Moist Pulmonary Resp Exam: Breath Sounds Equal, No Distress, Decreased Bases Cardiology CV Exam: Irregular Gastrointestinal/Abdomen GI Exam: Soft, Non-Tender, Bowel Sounds Present Integumentary Skin Exam: Clear, Warm, Dry Extremeties Extremities Exam: No Edema Assessment/Plan Problem List: (1) Chronic kidney disease, stage 4 (severe) ICD Codes: N18.4 - Chronic kidney disease, stage 4 (severe) Status: Acute Plan: Acute Kidney injury from ATN from infection, possibly Vancomycin. related. Has chronic kidney disease stage IV with baseline creatinine of 1.7-2.0 from hypertension and renovascular disease Plan Monitor I +O and BMP Renal dose antibiotics Avoid nephrotoxins. Creatinine at baseline (2) Acute exacerbation of CHF (congestive heart failure) ICD Codes: I50.9 - Heart failure, unspecified Status: Acute Plan: Improved. Pulmonary on the case. (3) Pneumonia ICD Codes: J18.9 - Pneumonia, unspecified organism Status: Acute Plan: Continue antibiotics (4) Hypertension ICD Codes: I10 - Essential (primary) hypertension Status: Chronic Plan: BP is high. Amlodipine added. Js Seymour MD Jul 09, 2017 09:49
--- NOTE | 2017-07-09 10:22 | PD.CARD.PN ---
Subjective Subjective Remarks no complaints Objective Medications Current Medications Medications (Trade) Dose Ordered Sig/Philomena Route Start Time Stop Time Status Last Admin (Duoneb Neb) 1 ampule Q2HR NEB PRN NEB 07/04/17 06:15 (NS Flush) 2 ml UNSCH PRN IV FLUSH 07/04/17 06:15 (NS Flush) 2 ml BID IV FLUSH 07/04/17 09:00 07/09/17 09:10 (Zofran Inj) 4 mg Q6H PRN IVP 07/04/17 06:15 (Tylenol) 650 mg Q6H PRN PO 07/04/17 06:15 07/08/17 06:05 ([place] 5-325 Mg) 1 tab Q4H PRN PO 07/04/17 06:15 ([place] 10-325 Mg) 1 tab Q4H PRN PO 07/04/17 06:15 (Shirley-Colace) 1 tab BID PO 07/04/17 09:00 07/09/17 09:09 (Milk Of Magnesia Liq) 30 ml Q12H PRN PO 07/04/17 06:15 (Senokot) 17.2 mg Q12H PRN PO 07/04/17 06:15 (Dulcolax Supp) 10 mg DAILY PRN RECTAL 07/04/17 06:15 (Lactulose Liq) 30 ml DAILY PRN PO 07/04/17 06:15 (Ecotrin Ec) 81 mg DAILY PO 07/04/17 09:00 07/09/17 09:09 (Neurontin) 100 mg BID PO 07/04/17 09:00 07/09/17 09:09 (Synthroid) 25 mcg DAILY@0600 PO 07/04/17 07:00 07/09/17 05:42 (Protonix) 20 mg DAILY PO 07/04/17 09:00 07/09/17 09:09 (Pravachol) 80 mg HS PO 07/04/17 21:00 07/08/17 22:07 (Mucinex Er) 600 mg BID PO 07/05/17 21:00 07/09/17 09:08 (Symbicort 160-4.5 Mcg Inh) 1 puff Q12HR INH 07/05/17 21:00 07/09/17 09:10 (Spiriva Inh) 18 mcg DAILY INH 07/06/17 09:15 07/07/17 08:12 (Duoneb Neb) 1 ampule Q6HR NEB NEB 07/07/17 08:00 07/09/17 09:23 (Lopressor) 50 mg Q8HR PO 07/07/17 09:00 07/09/17 05:43 (D50w (Vial) Inj) 50 ml UNSCH PRN IV PUSH 07/07/17 10:15 (Glucagon Inj) 1 mg UNSCH PRN OTHER 07/07/17 10:15 (NovoLOG SUPPLEMENTAL SCALE) 1 ACHS SLIDING SCALE SQ 07/07/17 12:00 07/08/17 12:00 (Catapres) 0.3 mg Q6H PRN PO 07/07/17 17:00 (Eliquis) 2.5 mg BID PO 07/08/17 12:00 07/09/17 09:09 (Augmentin) 500 mg Q12HR PO 07/08/17 21:00 07/09/17 09:09 (Deltasone) 10 mg BID PO 07/08/17 21:00 07/09/17 09:09 (Norvasc) 2.5 mg DAILY PO 07/09/17 09:00 07/09/17 09:09 (Pill Splitter) 1 ea UNSCH PRN OTHER 07/09/17 09:00 Vital Signs / I&O Vital Signs Date Time Temp Pulse Resp B/P (MAP) Pulse Ox O2 Delivery O2 Flow Rate FiO2 07/09/17 09:25 92 Nasal Cannula 4.00 07/09/17 09:02 70 16 160/75 (103) 95 07/09/17 08:05 98.3 69 18 171/92 (118) 94 07/09/17 04:00 56 07/09/17 04:00 57 07/09/17 04:00 67 16 159/87 (111) 94 07/09/17 00:07 67 16 159/87 (111) 94 07/08/17 20:35 94 Nasal Cannula 4.00 07/08/17 20:15 97.3 66 16 149/92 (111) 95 07/08/17 20:15 Nasal Cannula 4.00 50 07/08/17 20:15 70 07/08/17 18:00 76 07/08/17 17:00 76 07/08/17 16:25 98.4 68 18 133/72 (92) 94 07/08/17 16:00 75 07/08/17 15:00 77 07/08/17 14:00 100 07/08/17 13:00 81 07/08/17 12:00 76 07/08/17 12:00 98.8 69 18 142/86 (104) 93 07/08/17 11:05 4.00 07/08/17 11:00 67 I/O 07/08/17 07/08/17 07/08/17 07/09/17 07/09/17 07/09/17 07:00 15:00 23:00 07:00 15:00 23:00 Intake Total 580 ml 1000 ml 480 ml Output Total 900 ml 1200 ml 600 ml Balance -320 ml -200 ml -120 ml Intake Oral 480 ml 1000 ml 480 ml IV Total 100 ml Output Urine Total 900 ml 1200 ml 600 ml Physical Exam GENERAL: Well developed, well nourished. No acute distress. HEENT: Jugular venous pressure is normal. CHEST: Lungs decreased and clear to auscultation bilaterally. Unlabored respiratory effort. CARDIAC: Regular rate and rhythm without S3, S4, or murmur. ABDOMEN: Soft, nontender, EXTREMITIES: No clubbing, cyanosis, or edema. Imaging Last 72 hours Impressions Chest X-Ray 07/07/17 0600 Signed Impressions: Service Date/Time: June 04:49 - CONCLUSION: Interstitial and alveolar densities throughout the right lung. Hemant Irby MD Assessment and Plan Assessment and Plan AF- in NSR, 10 sec burst AF RVR overnight- continue same meds -continue BB -CHADS VASC-at least 4---coumadin vs AGUILAR discussed -eliquis Cardiomyopathy EF 30-35% - check ECHO on BB -no HUGO with elevated Cr Pneumonia- per CCM other- doing good with OOB to chair Cecelia Bautista MD Jul 09, 2017 10:22
[2017-07-09] MEDS ORDERED: WALKER WHEELS/F1 MIS (13:05)
[2017-07-09] MEDS ORDERED: SPIRCAP INH (13:08)
[2017-07-09] MEDS ORDERED: Amoxicil-Clavulanate PO (13:08)
[2017-07-09] MEDS ORDERED: APIX2.5T PO (13:08)
--- NOTE | 2017-07-09 13:18 | HHI.PR ---
Subjective Remarks up in chair no complains of pain lungs- no wheezes - telemetry- SR Objective Vitals Vital Signs Date Time Temp Pulse Resp B/P (MAP) Pulse Ox O2 Delivery O2 Flow Rate FiO2 07/09/17 12:34 98.2 64 16 130/80 (97) 96 07/09/17 09:25 92 Nasal Cannula 4.00 07/09/17 09:02 70 16 160/75 (103) 95 07/09/17 08:05 98.3 69 18 171/92 (118) 94 07/09/17 08:00 63 07/09/17 08:00 94 Nasal Cannula 4.00 07/09/17 08:00 63 07/09/17 04:00 56 07/09/17 04:00 57 07/09/17 04:00 67 16 159/87 (111) 94 07/09/17 00:07 67 16 159/87 (111) 94 07/08/17 20:35 94 Nasal Cannula 4.00 07/08/17 20:15 97.3 66 16 149/92 (111) 95 07/08/17 20:15 Nasal Cannula 4.00 50 07/08/17 20:15 70 07/08/17 18:00 76 07/08/17 17:00 76 07/08/17 16:25 98.4 68 18 133/72 (92) 94 07/08/17 16:00 75 07/08/17 15:00 77 07/08/17 14:00 100 I/O 07/08/17 07/08/17 07/08/17 07/09/17 07/09/17 07/09/17 07:00 15:00 23:00 07:00 15:00 23:00 Intake Total 580 ml 1000 ml 480 ml Output Total 900 ml 1200 ml 600 ml Balance -320 ml -200 ml -120 ml Intake Oral 480 ml 1000 ml 480 ml IV Total 100 ml Output Urine Total 900 ml 1200 ml 600 ml Result Diagram: 07/07/1702 07/08/17 0646 Imaging Last Impressions Chest X-Ray 07/07/17 0600 Signed Impressions: Service Date/Time: June 04:49 - CONCLUSION: Interstitial and alveolar densities throughout the right lung. Hemant Irby MD Chest CT 07/04/17 0000 Signed Impressions: Service Date/Time: Tuesday, July 04, 2017 11:04 - CONCLUSION: 1. Centrilobular emphysematous changes are again noted bilaterally. 2. Patchy opacity is noted within the left lower lobe posteriorly consistent with possible pneumonia or atelectasis. 3. 4. Scattered noncalcified nodular densities are also noted within the superior segment of the left lower lobe with the largest measuring 7 mm. Differential includes nodular infiltrate or true pulmonary nodules. The findings described above include a newly detected solid pulmonary nodule of 6- 8 mm average diameter. Guidelines from the [employer] for the follow-up and management of newly detected indeterminate pulmonary nodules in persons > 34 years old depend on nodule size (average of length and width) and underlying risk factors (including smoking and other risk factors). Please consider the following recommendations after clinical assessment of risk factors. For 6-8 mm nodules: 5. In low risk patients, initial follow-up CT at 6-12 months, then 18-24 months if no change. In high risk patients, initial follow-up CT at 3-6 months, then 9-12 and 24 months if no change. 6. Cardiomegaly, mitral valve calcifications and coronary artery calcifications. 7. Tiny bilateral pleural effusions. 8. Stable pretracheal mediastinal lymphadenopathy which is nonspecific Hunter Randall MD Objective Remarks awake and alert, no distress anicteric no nuchal rigidity lungs- no rales, no wheezes regular rhythm occ. PVcs abdomen soft, nontender no edema, good peripheral pulses neuro exam-unremarkable Date of Removal: Jul 08, 2017 A/P Assessment and Plan 86 years old Acute hypoxemic respiratory failure Bibasilar pneumonia -Underlying COPD, basilar pneumonia -Empiric antibiotic with Zosyn -- change to po augmentin 500 mg -Follow-up cultures, influenza negative Pulmonary ff- OP ff Acute COPD exacerbation- mario alberto will need home 02 -DuoNeb scheduled and as needed -on Prednisone 10 mg po bid - give short course -Continue Symbicort and Spiriva Pulmonary ff- OP ff up with Dr. shea -qualify for home 02 New-onset A. fib with RVR - intermittent -continue BB.- Metoprolol 50 mg po q 8 amiodarone DC -CHADS VASC-at least 4-- -started on eliquis today, d/c heparin Cardiomyopathy EF 30-35% - on BB -no HUGO with elevated Cr -cardiology ff- OP ff up with Dr. Bautista Pneumonia-- continue on antibiotics- augmentin ABDULLAHI on top of chronic KD III - creatinine now back to baseline - DC rivas - Nephrology ff- will defer to them regarding initiation of maintenance diuretics DVT GI prophylaxis -Yoshi's and SCDs -- on Eliquis for A fib -Pepcid Increase activity Out of bed to chair PT alonzo CM for DC planning- home today if arranged Juanjose Lehman MD Jul 09, 2017 13:18
[2017-07-09] MEDS ORDERED: AMLO5 PO (13:28)
[2017-07-09] MEDS ORDERED: Albuterol-Ipratropium Neb NEB (13:28)
[2017-07-09] MEDS ORDERED: PRED10 PO (13:28)
[2017-07-09] MEDS ORDERED: METO-309 PO (13:28)
--- NOTE | 2017-07-09 13:32 | HHI.DS ---
Discharge Summary Admission Date Jul 04, 2017 at 06:08 Discharge Date: Jul 09, 2017 Admitting Diagnosis COPD, CHF, elevated troponin Brief History - From Admission 86 years old female with history of COPD chronic kidney disease hypertension presented to the ED with a complaint of worsening shortness of breath started this envelope folder, with dry cough, low-grade fever, no chest pain, patient reported having flulike syndrome few days ago prior to that. Patient told me she was on antibiotic for UTI. Currently patient on nasal cannula awake alert denied diarrhea, she denied dysuria urgency or frequency however she was diagnosed with UTI and was given antibiotic. In ED chest x-ray showed bibasilar airspace disease patient was started on a dose of antibiotic with breathing treatment and oxygen, lactic acid was 2.3 CBC/BMP: 07/07/17 0602 07/08/17 0646 Significant Findings Laboratory Tests Test 07/06/17 13:36 07/06/17 15:54 07/06/17 20:37 07/07/17 06:02 Activated Partial Thromboplast Time 49.1 SEC (24.3-30.1) 42.0 SEC (24.3-30.1) Blood Urea Nitrogen 59 MG/DL (7-18) 63 MG/DL (7-18) Creatinine 2.38 MG/DL (0.50-1.00) 2.45 MG/DL (0.50-1.00) Random Glucose 192 MG/DL (74-106) 154 MG/DL (74-106) Albumin 2.9 GM/DL (3.4-5.0) 2.7 GM/DL (3.4-5.0) Calcium Level 8.3 MG/DL (8.5-10.1) 8.1 MG/DL (8.5-10.1) Aspartate Amino Transf (AST/SGOT) 42 U/L (15-37) 50 U/L (15-37) Chloride Level 108 MEQ/L (98-107) 109 MEQ/L (98-107) Estimat Glomerular Filtration Rate 19 ML/MIN (>89) 19 ML/MIN (>89) White Blood Count 15.0 TH/MM3 (4.0-11.0) Red Blood Count 3.79 MIL/MM3 (4.00-5.30) Hemoglobin 10.6 GM/DL (11.6-15.3) Hematocrit 32.3 % (35.0-46.0) Neutrophils (%) (Auto) 93.6 % (16.0-70.0) Lymphocytes (%) (Auto) 3.8 % (9.0-44.0) Neutrophils # (Auto) 14.0 TH/MM3 (1.8-7.7) Lymphocytes # (Auto) 0.6 TH/MM3 (1.0-4.8) Total Protein 6.2 GM/DL (6.4-8.2) Phosphorus Level 5.0 MG/DL (2.5-4.9) Alanine Aminotransferase (ALT/SGPT) 57 U/L (10-53) Test 07/07/17 13:02 07/07/17 22:21 07/08/17 06:46 07/08/17 09:53 Activated Partial Thromboplast Time 32.1 SEC (24.3-30.1) 74.4 SEC (24.3-30.1) 23.4 SEC (24.3-30.1) Creatinine 1.90 MG/DL (0.50-1.00) Estimat Glomerular Filtration Rate 25 ML/MIN (>89) PE at Discharge awake and alert, no distress anicteric no nuchal rigidity lungs- no rales, no wheezes regular rhythm occ. PVcs abdomen soft, nontender no edema, good peripheral pulses neuro exam-unremarkable Pt Condition on Discharge: Stable Discharge Disposition: Discharge Home Discharge Time: > 30 minutes Discharge Instructions DIET: Follow Instructions for: Heart Healthy Diet Speech Therapy-Diet Recommends: Regular Activities you can perform: Weight Bearing as Gabi Activities to Avoid: Prolonged Standing, Strenuous Activity Follow up Referrals: Cardiology - 1 Week with yoli Nephrology - 1 Week with Mary PCP Follow-up - 07/11/17 with PCP Pulmonology - 07/12/17 with Bianca New Medications: Oxygen (O2) (Oxygen (O2)) Inha LITER JAZZ.CANULA CONTINUOUS for Prevent Hypoxemia, #1 Oxygen Concentrator Portable Gaseous 2 L/min via Nasal Canula Continuous For 99 months Walker with Front Wheels (Walker with Front Wheels) 1 Mis Mis EA .XX DIRECTED for ambula, #1 0 Refills Amlodipine (Norvasc) 5 Mg Tab 2.5 MG PO DAILY for HTN for 30 Days, #15 TAB Apixaban (Eliquis) 2.5 Mg Tab 2.5 MG PO BID for OAC for 30 Days, #60 TAB Metoprolol Tartrate (Lopressor) 50 Mg Tab 50 MG PO Q8HR for Afib for 30 Days, TAB Prednisone (Prednisone) 10 Mg Tab 10 MG PO BID for COPD for 3 Days, #6 TAB Tiotropium Inh (Spiriva Handihaler) 18 Mcg Cap 18 MCG INH DAILY for COPD for 30 Days, #1 CAP 1 capsule = 18 mcg [Albuterol-Ipratropium Neb] () 1 AMPULE NEBU 1 AMPULE NEB Q6HR NEB for COPD, #30 [Amoxicil-Clavulanate] () 500 MG TAB 500 MG PO Q12HR for COPDex for 4 Days Continued Medications: Aspirin DR (Aspirin 81) 81 Mg Tabdr 81 MG PO DAILY, TAB 0 Refills Cholecalciferol (Vitamin D3) 5,000 Unit Cap 5000 UNITS PO DAILY for Nutritional Supplement, #30 CAP 0 Refills Gabapentin (Gabapentin) 100 Mg Cap 100 MG PO BID, #60 CAP 0 Refills Levothyroxine (Levothyroxine) 25 Mcg Tab 25 MCG PO DAILY for Thyroid, #30 TAB 0 Refills Omeprazole (Omeprazole) 20 Mg Tab 20 MG PO DAILY, #30 TAB 0 Refills Simvastatin (Simvastatin) 40 Mg Tab 40 MG PO HS for Cholesterol Management, #30 TAB 0 Refills Discontinued Medications: Cephalexin (Cephalexin) 250 Mg Tab 250 MG PO BID for Infection, TAB 0 Refills Juanjose Lehman MD Jul 09, 2017 13:32
== END 2017-07-09 14:49 | disposition home or self-care (01) | DRG 193 ==
LOC: NEPC 04:03 → NEDA 06:08 → NEDH 15:40 → HCIS 16:59 → N03A 07-05 23:06 → HCIS 07-07 16:55
PROVIDERS: ADMIT Internal Medicine; ATTEND Internal Medicine
PROC: 5A09357 Assistance with Respiratory Ventilation, Less than 24 Consecutive Hours, Continuous Positive Airway Pressure (ICD-10-PCS; principal; 2017-07-04)
DX: J18.9 Pneumonia, unspecified organism (principal); J96.01 Acute respiratory failure with hypoxia; N17.0 Acute kidney failure with tubular necrosis; R65.20 Severe sepsis without septic shock; I50.23 Acute on chronic systolic (congestive) heart failure; N18.4 Chronic kidney disease, stage 4 (severe); A41.9 Sepsis, unspecified organism; I42.9 Cardiomyopathy, unspecified; I13.0 Hypertensive heart and chronic kidney disease with heart failure and stage 1 through stage 4 chronic kidney disease, or unspecified chronic kidney disease; J44.0 Chronic obstructive pulmonary disease with (acute) lower respiratory infection; J44.1 Chronic obstructive pulmonary disease with (acute) exacerbation; E87.2 Acidosis; I48.91 Unspecified atrial fibrillation; Z66 Do not resuscitate; E78.00 Pure hypercholesterolemia, unspecified; Z85.3 Personal history of malignant neoplasm of breast; Z85.41 Personal history of malignant neoplasm of cervix uteri; Z92.3 Personal history of irradiation; Z87.891 Personal history of nicotine dependence; Z79.82 Long term (current) use of aspirin
CPT/HCPCS: 36600; 71045; 71250; 76937; 80048; 80053; 80076; 80202; 81001; 82565; 82805; 83036; 83605; 83735; 83880; 84100; 84439; 84443; 84484; 85025; 85027; 85610; 85730; 87070; 87205; 87449; 87804; 93005; 93306; 94002; 94003; 94150; 94618; 94640; 94664; 96365; 96375; J0171; J0282; J0360; J0461; J0692; J1200; J1644; J1815; J1956; J2060; J2543; J2920; J2930; J3370; J7030; J7040; J7050; J7512